=== PATIENT | female | born 1960 | race Hispanic/Latino ===

== ENCOUNTER 2019-05-22 23:53 | Emergency (ER) | payer BC ==
[2019-05-23] MEDS ORDERED: NA CHLORIDE 0.9% 1,000 ML ONE (00:25)
[2019-05-23] MEDS ORDERED: PROMETHAZINE 25 MG/ML VIAL ONE (00:50)
[2019-05-23 01:06] LABS: Absolute Lymphocytes (CBC) 0.4 K/uL (0.7-4.9); Basophils % 0.4 % (0-1.3); Hematocrit 39.7 % (36.0-45.0); Lymphocytes % 7.8 % (15.3-44.8); MPV 9.8 fL (7.6-11.3); RBC Red Blood Cell Count 4.39 M/uL (3.86-4.86)
[2019-05-23 01:14] LABS: Potassium 3.6 mmol/L (3.5-5.1)
--- NOTE | 2019-05-23 01:35 | EDPHYS ---
Physician Documentation [facility] Name: Zeny Fox Age: 59 yrs Sex: Female : 1960 Arrival Date: 05/22/2019 Time: 23:59 Bed 7 Private MD: ED Physician Roland Matthews HPI: 05/23 00:19 This 59 yrs old Female presents to ER via Ambulatory with complaints of Flu snw Symptoms. 00:19 Onset: The symptoms/episode began/occurred suddenly, yesterday. Associated signs and snw symptoms: Pertinent positives: congestion, cough, diarrhea, earache, fever, headache, sore throat, vomiting. Modifying factors: The patient symptoms are alleviated by nothing. The patient has not experienced similar symptoms in the past, but family has similar symptoms, Grandson. The patient has not recently seen a physician. Historical: - Allergies: 00:14 No Known Allergies; lp1 - Home Meds: 00:14 metformin 1,000 mg Oral tab 1 tab 2 times per day [Active]; Trulicity subcutaneous lp1 subcutaneous once wkly [Active]; irbesartan 75 mg oral tab 1 tab once daily [Active]; rosuvastatin 10 mg oral tab 1 tab once daily [Active]; - PMHx: 00:14 Diabetes - IDDM; Hypertension; Hyperlipidemia; colon cancer; lp1 - PSHx: 00:14 Colon resection; lp1 - Immunization history:: Adult Immunizations up to date, Flu vaccine is not up to date. - Social history:: Smoking status: Patient/guardian denies using tobacco. - Ebola Screening: : No symptoms or risks identified at this time. ROS: 00:18 Eyes: Negative for injury, pain, redness, and discharge. snw 00:18 Neck: Negative for injury, pain, and swelling, Cardiovascular: Negative for chest pain, palpitations, and edema. 00:18 Back: Negative for injury and pain, : Negative for injury, bleeding, discharge, and swelling, MS/Extremity: Negative for injury and deformity, Skin: Negative for injury, rash, and discoloration, Neuro: Negative for headache, weakness, numbness, tingling, and seizure. 00:18 Constitutional: Positive for body aches, chills, fatigue, fever, malaise, poor PO intake. 00:18 ENT: Positive for ear pain, nasal discharge, sinus congestion, sore throat. 00:18 Respiratory: Positive for cough. 00:18 Abdomen/GI: Positive for nausea, vomiting, and diarrhea. Exam: 00:18 Head/Face: Normocephalic, atraumatic. Eyes: Pupils equal round and reactive to light, snw extra-ocular motions intact. Lids and lashes normal. Conjunctiva and sclera are non-icteric and not injected. Cornea within normal limits. Periorbital areas with no swelling, redness, or edema. ENT: Nares patent. No nasal discharge, no septal abnormalities noted. Tympanic membranes are normal and external auditory canals are clear. Oropharynx with no redness, swelling, or masses, exudates, or evidence of obstruction, uvula midline. Mucous membranes moist. Neck: Trachea midline, no thyromegaly or masses palpated, and no cervical lymphadenopathy. Supple, full range of motion without nuchal rigidity, or vertebral point tenderness. No Meningismus. Chest/axilla: Normal chest wall appearance and motion. Nontender with no deformity. No lesions are appreciated. 00:18 Respiratory: Lungs have equal breath sounds bilaterally, clear to auscultation and percussion. No rales, rhonchi or wheezes noted. No increased work of breathing, no retractions or nasal flaring. Abdomen/GI: Soft, non-tender, with normal bowel sounds. No distension or tympany. No guarding or rebound. No evidence of tenderness throughout. Back: No spinal tenderness. No costovertebral tenderness. Full range of motion. Skin: Warm, dry with normal turgor. Normal color with no rashes, no lesions, and no evidence of cellulitis. MS/ Extremity: Pulses equal, no cyanosis. Neurovascular intact. Full, normal range of motion. Neuro: Awake and alert, GCS 15, oriented to person, place, time, and situation. Cranial nerves II-XII grossly intact. Motor strength 5/5 in all extremities. Sensory grossly intact. Cerebellar exam normal. Normal gait. Psych: Awake, alert, with orientation to person, place and time. Behavior, mood, and affect are within normal limits. 00:18 Constitutional: The patient appears alert, anxious, uncomfortable. 00:18 Cardiovascular: Rate: tachycardic, Rhythm: regular, Pulses: no pulse deficits are appreciated. Vital Signs: 00:12 BP 139 / 73; Pulse 109; Resp 18; Temp 100.2(O); Pulse Ox 96% on R/A; Weight 83.91 kg lp1 (R); Height 5 ft. 0 in. (152.40 cm); Pain 0/10; 01:48 BP 134 / 62; Pulse 109; Resp 18; Temp 101; Pulse Ox 97% ; ea 00:12 Body Mass Index 36.13 (83.91 kg, 152.40 cm) lp1 MDM: 00:12 Patient medically screened. chanelle 01:32 Data reviewed: vital signs, nurses notes. Data interpreted: Pulse oximetry: on room air snw is 96 %. Interpretation: acceptable. Counseling: I had a detailed discussion with the patient and/or guardian regarding: the historical points, exam findings, and any diagnostic results supporting the discharge/admit diagnosis, lab results, the need for outpatient follow up, to return to the emergency department if symptoms worsen or persist or if there are any questions or concerns that arise at home. Special discussion: Based on the history and exam findings, there is no indication for further emergent testing or inpatient evaluation. I discussed with the patient/guardian the need to see the primary care provider for further evaluation of the symptoms. 05/23 00:18 Order name: Influenza Screen (a \T\ B); Complete Time: 01:29 snw 05/23 00:18 Order name: CBC with Diff; Complete Time: 01:53 snw 05/23 00:18 Order name: Chem 7; Complete Time: 01:29 snw 05/23 01:49 Order name: Manual Differential; Complete Time: :53 EDMS Administered Medications: 00:33 Drug: NS 0.9% 1000 ml Route: IV; Rate: 1 bolus; Site: right antecubital; ea 01:47 Follow up: Response: No adverse reaction; IV Status: Completed infusion; IV Intake: ea 1000ml 00:52 Drug: Phenergan 12.5 mg Route: IVP; Site: right antecubital; jd3 01:47 Follow up: Response: No adverse reaction; Nausea is decreased ea 01:58 Drug: Tamiflu 75 mg Route: PO; ea 02:20 Follow up: Response: No adverse reaction ea 01:58 Drug: Motrin 600 mg Route: PO; ea 02:21 Follow up: Response: No adverse reaction ea Disposition: 05:40 Co-signature as Attending Physician, Roland Matthews MD I agree with the assessment and [facility] plan of care. Disposition: 05/23/19 01:31 Discharged to Home. Impression: Influenza due to identified novel influenza A virus, Dehydration. - Condition is Stable. - Discharge Instructions: Dehydration, Adult, Fever, Adult, Influenza, Adult, Rehydration, Adult. - Prescriptions for Tamiflu 75 mg Oral Capsule - take 1 capsule by ORAL route every 12 hours for 5 days; 10 capsule. promethazine 25 mg Oral Tablet - take 1 tablet by ORAL route every 6 hours As needed; 20 tablet. - Medication Reconciliation Form, Thank You Letter, Antibiotic Education, Prescription Opioid Use form. - Follow up: Private Physician; When: 2 - 3 days; Reason: Recheck today's complaints, Continuance of care, Re-evaluation by your physician. Follow up: Emergency Department; When: As needed; Reason: Worsening of condition. Signatures: Dispatcher [employer] EDRoland Colmenares MD MD cha Therrien, Shelly, SCRAP CHARGER-C SCRAP CHARGER-Csnw Vanita Fox, RN RN lp1 Cassi Fung RN RN Alexandr Garber RN RN jd3 Corrections: (The following items were deleted from the chart) 02:20 01:31 05/23/2019 01:31 Discharged to Home. Impression: Influenza due to identified ea novel influenza A virus; Dehydration. Condition is Stable. Forms are Medication Reconciliation Form, Thank You Letter, Antibiotic Education, Prescription Opioid Use. Follow up: Private Physician; When: 2 - 3 days; Reason: Recheck today's complaints, Continuance of care, Re-evaluation by your physician. Follow up: Emergency Department; When: As needed; Reason: Worsening of condition. snw
--- NOTE | 2019-05-23 01:35 | ER ---
Nurse's Notes [facility] Name: Zeny Fox Age: 59 yrs Sex: Female : 1960 Arrival Date: 05/22/2019 Time: 23:59 Bed 7 Private MD: Diagnosis: Influenza due to identified novel influenza A virus;Dehydration Presentation: 05/23 00:11 Presenting complaint: Patient states: Cough, low grade fever, nausea since yesterday. lp1 Transition of care: patient was not received from another setting of care. Onset of symptoms was May 21, 2019. Risk Assessment: Do you want to hurt yourself or someone else? Patient reports no desire to harm self or others. Initial Sepsis Screen: Does the patient meet any 2 criteria? No. Patient's initial sepsis screen is negative. Does the patient have a suspected source of infection? No. Patient's initial sepsis screen is negative. Care prior to arrival: None. 00:11 Method Of Arrival: Ambulatory lp1 00:11 Acuity: JAMES 4 lp1 Historical: - Allergies: 00:14 No Known Allergies; lp1 - Home Meds: 00:14 metformin 1,000 mg Oral tab 1 tab 2 times per day [Active]; Trulicity subcutaneous lp1 subcutaneous once wkly [Active]; irbesartan 75 mg oral tab 1 tab once daily [Active]; rosuvastatin 10 mg oral tab 1 tab once daily [Active]; - PMHx: 00:14 Diabetes - IDDM; Hypertension; Hyperlipidemia; colon cancer; lp1 - PSHx: 00:14 Colon resection; lp1 - Immunization history:: Adult Immunizations up to date, Flu vaccine is not up to date. - Social history:: Smoking status: Patient/guardian denies using tobacco. - Ebola Screening: : No symptoms or risks identified at this time. Screenin:14 Abuse screen: Denies threats or abuse. Denies injuries from another. Nutritional lp1 screening: No deficits noted. Tuberculosis screening: No symptoms or risk factors identified. Fall Risk None identified. Assessment: 00:34 General: Appears uncomfortable, Behavior is appropriate for age. Pain: Complains of ea pain in body aches. Neuro: Level of Consciousness is awake, alert, obeys commands, Oriented to person, place, time, situation. Respiratory: Airway is patent Respiratory effort is even, unlabored, Respiratory pattern is regular, symmetrical. GI: Reports diarrhea, nausea, vomiting. Derm: Skin is dry, Skin is pale, Skin temperature is warm. 01:50 Reassessment: Patient and/or family updated on plan of care and expected duration. Pain ea level reassessed. Patient is alert, oriented x 3, equal unlabored respirations, skin warm/dry/pink. Discharge instruction given to patient, verbalized the understanding of instruction. Pt left ED ambulatory accompanied by family. Vital Signs: 00:12 BP 139 / 73; Pulse 109; Resp 18; Temp 100.2(O); Pulse Ox 96% on R/A; Weight 83.91 kg lp1 (R); Height 5 ft. 0 in. (152.40 cm); Pain 0/10; 01:48 BP 134 / 62; Pulse 109; Resp 18; Temp 101; Pulse Ox 97% ; ea 00:12 Body Mass Index 36.13 (83.91 kg, 152.40 cm) lp1 ED Course: 05/22 23:59 Patient arrived in ED. cl3 05/23 00:07 Susan Thomas F[facility]-C [facility] snw 00:07 Roland Matthews MD is Attending Physician. snw 00:12 Triage completed. lp1 00:12 Arm band placed on. lp1 00:33 Patient has correct armband on for positive identification. Bed in low position. Call ea light in reach. Side rails up X2. 00:33 Inserted saline lock: 20 gauge in right antecubital area, using aseptic technique. ea Blood collected. 01:14 Cassi Fung, RN is Primary Nurse. ea 02:18 No provider procedures requiring assistance completed. IV discontinued, intact, ea bleeding controlled, No redness/swelling at site. Pressure dressing applied. Administered Medications: 00:33 Drug: NS 0.9% 1000 ml Route: IV; Rate: 1 bolus; Site: right antecubital; ea 01:47 Follow up: Response: No adverse reaction; IV Status: Completed infusion; IV Intake: ea 1000ml 00:52 Drug: Phenergan 12.5 mg Route: IVP; Site: right antecubital; jd3 01:47 Follow up: Response: No adverse reaction; Nausea is decreased ea 01:58 Drug: Tamiflu 75 mg Route: PO; ea 02:20 Follow up: Response: No adverse reaction ea 01:58 Drug: Motrin 600 mg Route: PO; ea 02:21 Follow up: Response: No adverse reaction ea Intake: 01:47 IV: 1000ml; Total: 1000ml. ea Outcome: 01:31 Discharge ordered by . snw 02:18 Discharged to home ambulatory, with significant other. ea 02:18 Condition: stable 02:18 Discharge instructions given to patient, Instructed on discharge instructions, follow up and referral plans. medication usage, Demonstrated understanding of instructions, follow-up care, medications, Prescriptions given X 2. 02:20 Patient left the ED. ea Signatures: Susan Thomas, SEAM CHECKER-C SEAM CHECKER-Csnw Vanita Fox RN RN lp1 Cassi Fung RN RN ea Davies, Jonathon, RN RN jd3 Jose Miguel Neville cl3
[2019-05-23 01:48] LABS: Platelet Estimate DECR
[2019-05-23 01:49] LABS: Blood Morphology Comment NOT SEEN (NOT SEEN)
[2019-05-23] MEDS ORDERED: IBUPROFEN 200 MG TAB PO ONE (01:55)
[2019-05-23] MEDS ORDERED: OSELTAMIVIR 75 MG CAP ONE (01:55)
[2019-05-23] MEDS ORDERED: IBUPROFEN 400 MG TAB ONE (01:55)
[2019-05-23 02:28] VITALS: BP 134/62; TEMP 101; O2SAT 97
== END 2019-05-23 02:20 | disposition home or self-care (01) ==
LOC: ER 23:53
DX: J10.1 Influenza due to other identified influenza virus with other respiratory manifestations (principal); E86.0 Dehydration; I10 Essential (primary) hypertension; E11.9 Type 2 diabetes mellitus without complications; E78.5 Hyperlipidemia, unspecified; Z79.4 Long term (current) use of insulin; Z85.89 Personal history of malignant neoplasm of other organs and systems
CPT/HCPCS: 96361; 85025; 80048; 36415; 87804 ×2; 96374; 99284; J2550; J7030

== ENCOUNTER 2019-07-14 10:26 | Inpatient (IN) | payer BC ==
[2019-07-14] MEDS ORDERED: PANTOPRAZOLE 40 MG INJ ONE (10:58)
[2019-07-14] MEDS ORDERED: ONDANSETRON 4 MG/2 ML VIAL ONE (10:58)
[2019-07-14] MEDS ORDERED: NA CHLORIDE 0.9% 1,000 ML ONE ×2 (10:59→11:40)
[2019-07-14] MEDS ORDERED: PANTOPRAZOLE INJ 80 MG in NA CHLORIDE 0.9% 250 ML IV ONE (11:00)
[2019-07-14 11:02] LABS: Absolute Lymphocytes (CBC) 2.1 K/uL (0.7-4.9); Basophils % 0.8 % (0-1.3); Hematocrit 33.9 % (36.0-45.0); Lymphocytes % 21.9 % (15.3-44.8); MPV 9.7 fL (7.6-11.3); RBC Red Blood Cell Count 3.64 M/uL (3.86-4.86)
[2019-07-14 11:07] LABS: Protime INR 1.27
[2019-07-14 11:25] LABS: ALT/SGPT 55 U/L (12-78); AST/SGOT 51 U/L (15-37); Albumin 2.9 g/dL (3.4-5.0); Alkaline Phosphatase 146 U/L (45-117); BUN Blood Urea Nitrogen 26 mg/dL (7-18); Bicarbonate 19 mmol/L (21-32); Bilirubin Direct 0.4 mg/dL (0-0.2); Bilirubin Total 1.2 mg/dL (0.2-1.0); Glucose Level 249 mg/dL (74-106); Lipase 229 U/L (73-393); Magnesium 1.8 mg/dL (1.8-2.4); NT PRO-BNP 31 pg/mL (<125); Potassium 3.9 mmol/L (3.5-5.1); Protein, Total 6.2 g/dL (6.4-8.2); Sodium Level 140 mmol/L (136-145); Troponin (Emerg Dept Use Only) < 0.02 ng/mL (0.0-0.045)
--- NOTE | 2019-07-14 11:34 | RAD REPORT ---
EXAM DESCRIPTION: Bre Single View07/14/2019 11:02 am CLINICAL HISTORY: Abd pain COMPARISON: none FINDINGS: The lungs appear clear of acute infiltrate. The heart is normal size IMPRESSION: No acute abnormalities displayed
--- NOTE | 2019-07-14 11:55 | RAD REPORT ---
EXAM DESCRIPTION: US - Abdomen Exam Limited - 07/14/2019 11:46 am CLINICAL HISTORY: NAUSEA / VOMITING COMPARISON: Abdomen Exam Complete dated 07/27/2016 FINDINGS: The gallbladder demonstrates multiple shadowing gallstones. No pericholecystic fluid or ga llbladder wall thickening. The common bile duct is normal measuring 4 mm. The liver demonstrates no findings of intrahepatic biliary dilatation. IMPRESSION: Cholelithiasis.
--- NOTE | 2019-07-14 12:05 | RAD REPORT ---
EXAM DESCRIPTION: CTAbdomen Pelvis W Contrast - 07/14/2019 11:54 am CLINICAL HISTORY: Abdominal pain. ABD PAIN COMPARISON: Abdomen Pelvis W Contrast dated 01/10/2017 TECHNIQUE: Biphasic CT imaging of the abdomen and pelvis was performed with 100 ml non-ionic IV cont rast. All CT scans are performed using dose optimization technique as appropriate and may include automated exposure control or mA/KV adjustment according to patient size. FINDINGS: The lung bases are clear.Small esophageal varices. Diffuse liver cirrhosis is present. No focal mass or biliary dilatation. Cholelithiasis. The spleen, pancreas, adrenal glands and kidneys are within normal limits. No bowel obstruction, free air, free fluid or abscess. Postsurgical changes about the sigmoid. Sigmoi d diverticulosis. The appendix is normal. No evidence of significant lymphadenopathy. No suspicious bony findings. IMPRESSION: Prominent liver cirrhosis. Cholelithiasis.
--- NOTE | 2019-07-14 12:29 | ER ---
Nurse's Notes [facility] Name: Zeny Fox Age: 59 yrs Sex: Female : 1960 Arrival Date: 07/14/2019 Time: 10:27 Bed 2 Private MD: Chet Herrera B Diagnosis: Hematemesis;Cholelithiasis;Unspecified cirrhosis of liver Presentation: 07/14 10:40 Acuity: JAMES 2 sv 10:40 Presenting complaint: Patient states: abd pain with n/v started last night, denies sv diarrhea. Reports "dark vomit 5 times". 10:40 Method Of Arrival: Wheelchair sv 10:40 Transition of care: patient was not received from another setting of care. Onset of sv symptoms was July 13, 2019. Risk Assessment: Do you want to hurt yourself or someone else? Patient reports no desire to harm self or others. Initial Sepsis Screen: Does the patient meet any 2 criteria? HR > 90 bpm. No. Patient's initial sepsis screen is negative. Does the patient have a suspected source of infection? Yes: Acute abdominal pain. Care prior to arrival: None. Triage Assessment: 10:40 General: Appears in no apparent distress. uncomfortable, well developed, Behavior is sv calm, cooperative, appropriate for age. Pain: Complains of pain in abdomen Pain currently is 5 out of 10 on a pain scale. Pain began 1 day ago. Is intermittent. Neuro: Level of Consciousness is awake, alert, obeys commands, Oriented to person, place, time, situation, Moves all extremities. Full function Gait is steady, Speech is normal. Cardiovascular: Patient's skin is warm and dry. Rhythm is sinus rhythm. Respiratory: Airway is patent Respiratory effort is even, unlabored, Respiratory pattern is regular, symmetrical. GI: Abdomen is round distended, Abd is soft X 4 quads Abdomen is tender to palpation X 4 quads. Reports lower abdominal pain, upper abdominal pain, nausea, vomiting, vomiting dark contents. Derm: Skin is pink, warm \\T\\ dry. Musculoskeletal: Range of motion: intact in all extremities. Historical: - Allergies: 11:03 No Known Allergies; sv - PMHx: 11:03 colon cancer; Diabetes - IDDM; Hyperlipidemia; Hypertension; fatty liver; sv - PSHx: 11:03 Colon resection; sv - Immunization history:: Flu vaccine is not up to date. - Coronavirus screen:: The patient has NOT traveled to [place] in the past 14 days. Proceed with normal triage process as indicated. The patient has NOT had contact with known/suspected case of Coronavirus? Proceed with normal triage procedures. - Social history:: Smoking status: Patient denies any tobacco usage or history of. - Ebola Screening: : No symptoms or risks identified at this time. Screenin:40 Abuse screen: Denies threats or abuse. Denies injuries from another. Nutritional sv screening: No deficits noted. Tuberculosis screening: No symptoms or risk factors identified. Fall Risk None identified. Assessment: 11:15 Reassessment: Patient appears in no apparent distress at this time. No changes from sv previously documented assessment. Patient and/or family updated on plan of care and expected duration. Pain level reassessed. Patient is alert, oriented x 3, equal unlabored respirations, skin warm/dry/pink. See triage assessment. 12:20 Reassessment: Patient appears in no apparent distress at this time. No changes from sv previously documented assessment. Patient and/or family updated on plan of care and expected duration. Pain level reassessed. Patient is alert, oriented x 3, equal unlabored respirations, skin warm/dry/pink. 12:40 Reassessment: Dr Almanza at the bedside. sv 13:33 Reassessment: Patient appears in no apparent distress at this time. No changes from sv previously documented assessment. Patient and/or family updated on plan of care and expected duration. Pain level reassessed. Patient is alert, oriented x 3, equal unlabored respirations, skin warm/dry/pink. Vital Signs: 10:40 BP 124 / 75; Pulse 114; Resp 20; Temp 98; Pulse Ox 99% ; Weight 85.73 kg; Height 5 ft. sv 0 in. (152.40 cm); Pain 5/10; 11:38 BP 92 / 75; Pulse 110; Resp 14; Pulse Ox 100% ; sv 12:30 BP 114 / 66; Pulse 113; Resp 18; Pulse Ox 100% ; sv 13:00 BP 110 / 54; Pulse 98 MON; Resp 17; Pulse Ox 100% on R/A; sv 10:40 Body Mass Index 36.91 (85.73 kg, 152.40 cm) sv 13:00 Sinus Rhythm sv ED Course: 10:27 Patient arrived in ED. mr 10:30 Roland Corral PA [facility]. cp 10:30 Roland Matthews MD is Attending Physician. cp 10:33 Arm band placed on Patient placed in an exam room, on a stretcher. sv 10:40 Anel Cherry, ELIZA is Primary Nurse. sv 10:40 Triage completed. sv 10:40 Patient has correct armband on for positive identification. Placed in gown. Bed in low sv position. Call light in reach. Adult w/ patient. limited radiology technician on. Pulse ox on. NIBP on. Door closed. Head of bed elevated. 10:45 Inserted saline lock: 18 gauge in right antecubital area, using aseptic technique. sv Blood collected. Flushed right antecubital with 2 ml normal saline. 10:47 Inserted saline lock: 20 gauge in right forearm, using aseptic technique. Flushed right sv forearm with 2 ml normal saline. 10:58 Lipase Sent. sv 10:58 Ptt, Activated Sent. sv 10:58 Basic Metabolic Panel Sent. sv 10:58 CBC with Diff Sent. sv 10:58 LFT's Sent. sv 10:58 Magnesium Sent. sv 10:58 NT PRO-BNP Sent. sv 10:58 PT-INR Sent. sv 10:58 Troponin (emerg Dept Use Only) Sent. sv 11:04 EKG done, by ED staff, reviewed by Roland GAN. mh5 11:05 Patient has correct armband on for positive identification. Placed in gown. Bed in low mh5 position. Call light in reach. Side rails up X 1. Adult w/ patient. Warm blanket given. limited radiology technician on. Pulse ox on. NIBP on. 11:33 Type And Screen Sent. sv 11:41 US Abdomen Limited: RUQ/epigastric area Sent. sv 11:50 CT Abd/Pelvis - IV Contrast Only Sent. sv 12:25 Chet Herrera MD is Private Physician. cp 12:27 Anil Almanza DO is Hospitalizing Provider. cp 12:59 Awaiting bed assignment. sv 13:18 XRAY Chest (1 view) Sent. sv 13:34 No provider procedures requiring assistance completed. Patient admitted, IV remains in sv place. intact. Administered Medications: 11:15 Drug: Zofran 4 mg Route: IVP; Site: right forearm; sv 11:50 Follow up: Response: No adverse reaction sv 11:17 Drug: ProTONIX 40 mg Route: IVP; Site: right forearm; sv 11:50 Follow up: Response: No adverse reaction sv 11:19 Drug: ProTONIX 8 mg/hr Route: IV; Rate: 25 ml/hr; Site: right forearm; sv 13:33 Follow up: Response: No adverse reaction; IV Status: Infusion continued upon admission sv 11:19 Drug: NS 0.9% 1000 ml Route: IV; Rate: 1 bolus; Site: right forearm; sv 12:00 Follow up: Response: No adverse reaction; IV Status: Completed infusion; IV Intake: sv 1000ml 12:00 Drug: NS 0.9% 1000 ml Route: IV; Rate: 1 bolus; Site: right forearm; sv 13:00 Follow up: Response: No adverse reaction; IV Status: Completed infusion; IV Intake: sv 1000ml Intake: 12:00 IV: 1000ml; Total: 1000ml. sv 13:00 IV: 1000ml; Total: 2000ml. sv Outcome: 12:28 Decision to Hospitalize by Provider. marija 13:33 Admitted to ICU accompanied by nurse, via stretcher, room 3, with chart, Report called sv to Elizabeth KAY 13:33 Condition: stable 13:33 Instructed on the need for admit. 14:00 Patient left the ED. sv Signatures: Anel Cherry RN RN CastroAlyson Corey, PA PA cp Martinez, Maria 5 Corrections: (The following items were deleted from the chart) 11:02 10:40 Presenting complaint: Patient states: abd pain with n/v started last night, sv denies diarrhea. Reports "dark vomit 5 times" sv 12:40 10:40 BP 124 / 75; Pulse 114bpm; Resp 20bpm; Pulse Ox 99%; 85.73 kg; Height 5 ft. 0 sv in.; BMI: 36.9; Pain 5/10; sv
--- NOTE | 2019-07-14 12:30 | EDPHYS ---
Physician Documentation [facility] Name: Zeny Fox Age: 59 yrs Sex: Female : 1960 Arrival Date: 07/14/2019 Time: 10:27 Bed 2 Private MD: Chet Herrera B ED Physician Roland Matthews HPI: 07/14 10:45 This 59 yrs old Female presents to ER via Unassigned with complaints of cp Vomiting, Abdominal Pain. 10:45 The patient presents to the emergency department with nausea, vomiting, that is cp intermittent, described as dark colored with blood, abdominal pain, of the left upper quadrant and left lower quadrant. Onset: The symptoms/episode began/occurred yesterday. Possible causes: bad food exposure, chicken. Historical: - Allergies: 11:03 No Known Allergies; sv - PMHx: 11:03 colon cancer; Diabetes - IDDM; Hyperlipidemia; Hypertension; fatty liver; sv - PSHx: 11:03 Colon resection; sv - Immunization history:: Flu vaccine is not up to date. - Coronavirus screen:: The patient has NOT traveled to [place] in the past 14 days. Proceed with normal triage process as indicated. The patient has NOT had contact with known/suspected case of Coronavirus? Proceed with normal triage procedures. - Social history:: Smoking status: Patient denies any tobacco usage or history of. - Ebola Screening: : No symptoms or risks identified at this time. ROS: 10:49 Eyes: Negative for injury, pain, redness, and discharge. cp 10:49 Constitutional: Negative for body aches, chills, fever. 10:49 ENT: Negative for drainage from ear(s), ear pain, difficulty swallowing, difficulty handling secretions. 10:49 Cardiovascular: Negative for chest pain, palpitations. 10:49 Respiratory: Negative for cough, shortness of breath, wheezing. 10:49 Abdomen/GI: Positive for abdominal pain, nausea, vomiting, hematemesis, Negative for diarrhea, constipation, black/tarry stool, rectal bleeding. 10:49 Back: Negative for radiated pain. 10:49 : Negative for urinary symptoms. 10:49 Neuro: Negative for altered mental status, headache, syncope. 10:49 All other systems are negative. Exam: 10:55 Constitutional: The patient appears in no acute distress, alert, awake, cp non-diaphoretic, non-toxic, well developed, well nourished. 10:55 Head/Face: Normocephalic, atraumatic. cp 10:55 Eyes: Periorbital structures: appear normal, Conjunctiva: normal, no exudate, no injection, Sclera: no appreciated abnormality, Lids and lashes: appear normal, bilaterally. 10:55 ENT: External ear(s): are unremarkable, Nose: is normal, Mouth: Lips: moist, Oral mucosa: moist, Posterior pharynx: is normal, airway is patent, no erythema, no exudate. 10:55 Neck: ROM/movement: is normal, is supple, without pain, no range of motions limitations, no nuchal rigidity. 10:55 Chest/axilla: Inspection: normal, Palpation: is normal, no crepitus, no tenderness. 10:55 Cardiovascular: Rate: tachycardic, Rhythm: regular, Edema: is not appreciated, JVD: is not appreciated. 10:55 Respiratory: the patient does not display signs of respiratory distress, Respirations: normal, no use of accessory muscles, no retractions, labored breathing, is not present, Breath sounds: are clear throughout, no decreased breath sounds, no stridor, no wheezing. 10:55 Abdomen/GI: Inspection: abdomen appears normal, Bowel sounds: active, all quadrants, Palpation: soft, in all quadrants, mild abdominal tenderness, in the left upper quadrant and left lower quadrant, rebound tenderness, is not appreciated, voluntary guarding, is not appreciated, involuntary guarding, is not appreciated. 10:55 Back: pain, is absent, ROM is normal. 10:55 Neuro: Orientation: to person, place \T\ time. Mentation: is normal, Motor: moves all fours, strength is normal. 11:14 ECG was reviewed by the Attending Physician. cp Vital Signs: 10:40 BP 124 / 75; Pulse 114; Resp 20; Temp 98; Pulse Ox 99% ; Weight 85.73 kg; Height 5 ft. sv 0 in. (152.40 cm); Pain 5/10; 11:38 BP 92 / 75; Pulse 110; Resp 14; Pulse Ox 100% ; sv 12:30 BP 114 / 66; Pulse 113; Resp 18; Pulse Ox 100% ; sv 13:00 BP 110 / 54; Pulse 98 MON; Resp 17; Pulse Ox 100% on R/A; sv 10:40 Body Mass Index 36.91 (85.73 kg, 152.40 cm) sv 13:00 Sinus Rhythm sv MDM: 10:33 Patient medically screened. cp 12:25 Physician consultation: Anil Almanza DO was called at 12:25, was contacted at 12:25, cp regarding admission, to the medical/surgical unit. patient's condition. 12:25 Data reviewed: vital signs, nurses notes, lab test result(s), EKG, radiologic studies, cp CT scan, plain films, I have discussed the patient's presentation/case with the attending Emergency Department Physician; and as a result, I will admit patient. 12:25 Test interpretation: by ED physician or midlevel provider: ECG, plain radiologic cp studies, chest xray negative for infiltrates. Response to treatment: the patient's symptoms have markedly improved after treatment. 07/14 10:41 Order name: Basic Metabolic Panel cp 07/14 10:41 Order name: CBC with Diff cp 07/14 10:41 Order name: LFT's cp 07/14 10:41 Order name: Magnesium cp 07/14 10:41 Order name: NT PRO-BNP cp 07/14 10:41 Order name: PT-INR cp 07/14 10:41 Order name: Troponin (emerg Dept Use Only) cp 07/14 10:41 Order name: Ptt, Activated cp 07/14 10:41 Order name: Lipase cp 07/14 11:06 Order name: CBC with Automated Diff; Complete Time: 11:26 EDMS 07/14 11:26 Interpretation: Normal except: RBC 3.64; HGB 11.4; HCT 33.9. cp 07/14 11:12 Order name: Protime (+INR); Complete Time: 11:26 EDMS 07/14 11:12 Order name: PTT, Activated Partial Thromb; Complete Time: 11:26 EDMS 07/14 11:26 Order name: Basic Metabolic Panel; Complete Time: 11:27 EDMS 07/14 11:27 Interpretation: Normal except: CL 109; CO2 19; GLUC 249; BUN 26; GFR 75. cp 07/14 11:26 Order name: Liver (Hepatic) Function; Complete Time: 11:27 EDMS 07/14 11:27 Interpretation: Normal except: AST 51; ALK 146; BILIT 1.2; BILID 0.4; TP 6.2; ALB 2.9; cp A/G 0.9. 07/14 10:41 Order name: XRAY Chest (1 view) cp 07/14 11:26 Order name: Troponin (Emerg Dept Use Only); Complete Time: 11:27 EDMS 07/14 11:26 Order name: NT PRO-BNP; Complete Time: 11:27 EDMS 07/14 11:26 Order name: Magnesium; Complete Time: 11:27 EDMS 07/14 11:26 Order name: Lipase; Complete Time: 11:27 EDMS 07/14 11:27 Order name: Type And Screen cp 07/14 11:27 Order name: CT Abd/Pelvis - IV Contrast Only cp 07/14 11:29 Order name: US Abdomen Limited: RUQ/epigastric area cp 07/14 12:13 Order name: RAD; Complete Time: 12:19 EDMS 07/14 12:14 Order name: US; Complete Time: 12:19 EDMS 07/14 12:37 Order name: CT EDND 07/14 10:41 Order name: EKG; Complete Time: 10:42 cp 07/14 10:41 Order name: Cardiac monitoring; Complete Time: 10:51 cp 07/14 10:41 Order name: EKG - Nurse/Tech; Complete Time: 10:58 cp 07/14 10:41 Order name: IV Saline Lock; Complete Time: 10:52 cp 07/14 10:41 Order name: Labs collected and sent; Complete Time: 10:52 cp 07/14 10:41 Order name: O2 Per Protocol; Complete Time: 10:52 cp 07/14 10:41 Order name: O2 Sat Monitoring; Complete Time: 10:52 cp EC:14 Rate is 121 beats/min. Rhythm is regular. GA interval is normal. QRS interval is cp normal. QT interval is normal. Interpreted by me. Reviewed by me. Administered Medications: 11:15 Drug: Zofran 4 mg Route: IVP; Site: right forearm; sv 11:50 Follow up: Response: No adverse reaction sv 11:17 Drug: ProTONIX 40 mg Route: IVP; Site: right forearm; sv 11:50 Follow up: Response: No adverse reaction sv 11:19 Drug: ProTONIX 8 mg/hr Route: IV; Rate: 25 ml/hr; Site: right forearm; sv 13:33 Follow up: Response: No adverse reaction; IV Status: Infusion continued upon admission sv 11:19 Drug: NS 0.9% 1000 ml Route: IV; Rate: 1 bolus; Site: right forearm; sv 12:00 Follow up: Response: No adverse reaction; IV Status: Completed infusion; IV Intake: sv 1000ml 12:00 Drug: NS 0.9% 1000 ml Route: IV; Rate: 1 bolus; Site: right forearm; sv 13:00 Follow up: Response: No adverse reaction; IV Status: Completed infusion; IV Intake: sv 1000ml Disposition: 07/14/19 12:28 Hospitalization ordered by Anil Almanza for Inpatient Admission. Preliminary diagnosis are Hematemesis, Cholelithiasis, Unspecified cirrhosis of liver. - Bed requested for Intensive Care Unit. - Status is Inpatient Admission. sv - Condition is Stable. - Problem is new. - Symptoms have improved. Addendum: 07/16/2019 08:35 Co-signature as Attending Physician, Roland Matthews MD I agree with the assessment and c plata plan of care. Signatures: Dispatcher [employer] EDMS Sydney Henriquez Stephanie, RN RN sv Anderson, Corey, MD MD cha Page, Corey, PA PA cp Corrections: (The following items were deleted from the chart) 07/14 12:54 12:28 Hospitalization Ordered by Anil Almanza DO for Inpatient Admission. Preliminary cp diagnosis is Hematemesis; Cholelithiasis; Unspecified cirrhosis of liver. Bed requested for Telemetry/MedSurg (Inpatient). Status is Inpatient Admission. Condition is Stable. Problem is new. Symptoms have improved. cp 13:13 12:54 07/14/2019 12:28 Hospitalization Ordered by Anil Almanza DO for Inpatient bd Admission. Preliminary diagnosis is Hematemesis; Cholelithiasis; Unspecified cirrhosis of liver. Bed requested for Intensive Care Unit. Status is Inpatient Admission. Condition is Stable. Problem is new. Symptoms have improved. cp 14:00 13:13 07/14/2019 12:28 Hospitalization Ordered by Anil Almanza DO for Inpatient sv Admission. Preliminary diagnosis is Hematemesis; Cholelithiasis; Unspecified cirrhosis of liver. Bed requested for Intensive Care Unit. Status is Inpatient Admission. Condition is Stable. Problem is new. Symptoms have improved. bd
[2019-07-14] MEDS ORDERED: NA CHLORIDE 0.9% 1,000 ML IV SCH (13:30)
[2019-07-14] MEDS ORDERED: ACETAMINOPHEN 500 MG TAB PO PRN (13:30)
[2019-07-14] MEDS ORDERED: ACETAMINOPHEN 650MG/RECT SUPP PR PRN (13:30)
--- NOTE | 2019-07-14 14:17 | P.HP ---
Certification for Inpatient Patient admitted to: Inpatient With expected LOS: >2 Midnights Patient will require the following post-hospital care: None Practitioner: I am a practitioner with admitting privileges, knowledge of patient current condition, hospital course, and medical plan of care. Services: Services provided to patient in accordance with Admission requirements found in Title 42 Section 412.3 of the Code of Federal Regulations Patient History Date of Service: 07/14/19 Primary Care Provider: Dr. Herrera; GI-Dr. Noble Reason for admission: Hematemesis, melena History of Present Illness: 59-year-old female with history of hypertension, diabetes mellitus type 2 non-insulin dependent, fatty liver cirrhosis, history of colon cancer with resection. Patient reports that she ate [employer] chicken last night. She reported feeling sick thereafter. She had an upset stomach. She did not sleep well. Then this morning she had increasing nausea and vomiting at around 9:00 a.m.. She started to vomit. She reported some bloody discharge with her vomitus. She then noted some melena thereafter. Patient denies any fever, chills, shortness of breath. No significant chest pain noted. Patient came to the ER for further evaluation. In the ER patient was evaluated. Patient was initially hypotensive. Patient required 2 L fluid bolus. White count 9.7, hemoglobin 11.4. Platelet count 187. Sodium 140, potassium 3.9, BUN of 26, creatinine 0.7 with a GFR 78. Glucose 249. Total bilirubin 1.2, AST 51, ALT 55. Lipase unremarkable. Troponin unremarkable. Chest x-ray unremarkable. CT scan shows prominent liver cirrhosis. Abdominal ultrasound showed some cholelithiasis. Patient was started on IV Protonix. Patient was admitted for further evaluation and treatment. When I saw the patient ER, she did appear stable. Blood pressure improved to around 114 systolic. Patient was still slightly tachycardic at 105. at bedside. Patient reports history of liver cirrhosis related to fatty liver. she also is a history of diabetes and hypertension. She does have a history of colon cancer. She has a resection done in 2017. She has not followed up with GI for follow up colonoscopy. Patient admits to alcohol use in the past. She does not drink anymore but on occasion. Allergies No Known Allergies Allergy (Unverified 07/14/19 13:16) Home medications list reviewed: Yes - Past Medical/Surgical History Diabetic: Yes -: Diabetes mellitus type 2 [id number]-ohxtzybac -: Hypertension -: GERD -: Obesity -: Liver cirrhosis with fatty liver -: History of colon cancer status post resection -: Colon resection Psychosocial/ Personal History: Patient is - Family History Father -: Heart disease Sister -: Heart disease, Cancer (Lymphoma) - Social History Smoking Status: Light Tobacco smoker (1-9 cigarettes/day) Counseled patient to stop smoking for: less than 10 minutes Smoking therapy provided: Yes Patient receptive to therapy: Yes Alcohol use: Yes CD- Drugs: No Caffeine use: Yes Place of Residence: Home Review of Systems General: As per HPI Eyes: Unremarkable ENT: Unremarkable Respiratory: Unremarkable Cardiovascular: Unremarkable Gastrointestinal: Nausea, Vomiting, Melena, As per HPI Genitourinary: Unremarkable Musculoskeletal: Unremarkable Integumentary: Unremarkable Neurological: Unremarkable Lymphatics: Unremarkable Physical Examination - Physical Exam General: Alert, In no apparent distress, Oriented x3, Cooperative HEENT: Atraumatic, Normocephalic, Other (Dry mucous membranes) Neck: Supple Respiratory: Clear to auscultation bilaterally, Normal air movement Cardiovascular: Abnormal pulses (Mild tachycardia) Gastrointestinal: Normal bowel sounds, Soft and benign, Non-distended, No ascites, No tenderness, No masses, No rebound, No guarding Musculoskeletal: No erythema, No tenderness, No warmth Integumentary: No tenderness/swelling, No erythema, No warmth Neurological: Normal speech, Normal strength at 5/5 x4 extr, Normal tone, Normal affect - Studies Laboratory Data (last 24 hrs) 07/14/19 10:45: PT 14.8 H, INR 1.27, APTT 34.4 07/14/19 10:45: WBC 9.7, Hgb 11.4 L, Hct 33.9 L, Plt Count 187 07/14/19 10:45: Sodium 140, Potassium 3.9, BUN 26 H, Creatinine 0.79, Glucose 249 H, Magnesium 1.8, Total Bilirubin 1.2 H, AST 51 H, ALT 55, Alkaline Phosphatase 146 H, Lipase 229 Assessment and Plan - Plan Impression: Hematemesis/melena with nausea and vomiting secondary to acute upper GI bleed likely related to gastritis/esophagitis Acute anemia likely secondary to upper GI bleed Diabetes mellitus type 2 [id number]-xfmoubtqm with hyperglycemia History of hypertension with noted hypotension related to above Liver cirrhosis with fatty liver History of distant alcohol abuse Tobacco abuse History of colon cancer status post resection Plan: Hematemesis/melena with nausea and vomiting secondary to acute upper GI bleed likely related to gastritis/esophagitis: Patient will be admitted to ICU for further treatment. Patient will continue with IV Protonix drip. Will continue with IV fluids. Will also start IV Rocephin. Will monitor and maintain hemoglobin above 8.0. Patient may require transfusion of blood if hemoglobin continues to drop. Case discussed with GI who has seen her in the past. Will stabilize patient. GI plans for EGD tomorrow morning. Will continue monitor lab closely including hemoglobin and hematocrit. Will keep the patient NPO at this time. Incidental cholelithiasis noted. No evidence of cholecystitis. Will provide SCD for DVT prophylaxis. I will turn the service over to the hospitalist team tomorrow. I will go over the plan of care with him. Acute anemia likely secondary to upper GI bleed: Will monitor hemoglobin closely. Continue with above recommendation. Patient may require transfusion if hemoglobin drops significantly or below 8.0. Diabetes mellitus type 2 poq-rywhfrz-eovaagkde with hyperglycemia: Will monitor Accu-Cheks every 6 hr. Will provide sliding scale. History of hypertension with noted hypotension related to above: Will hold her blood pressure medications at this time. Patient may need to restart medications if blood pressure elevates. Liver cirrhosis with fatty liver: Patient reports liver cirrhosis related to fatty liver. She has not followed up with GI. Have GI make recommendations. History of distant alcohol abuse: Patient reports distant alcohol use. Will check alcohol level. Tobacco abuse: Tobacco cessation addressed in detail. Will continue with education. History of colon cancer status post resection: Patient had surgery about 2 years ago. She has not followed up with GI for follow up colonoscopy. This can be addressed as an outpatient. Discharge Plan: Home Plan to discharge in: 72 Hours - Advance Directives Does patient have a Living Will: No Does patient have a Durable POA for Healthcare: No - Code Status/Comfort Care Code Status Assessed: Yes (Patient is full code) Time Spent Managing Pts Care (In Minutes): 55
[2019-07-14 14:28] LABS: Hematocrit 32.4 % (36.0-45.0)
--- NOTE | 2019-07-14 15:27 | EKG ---
Test Date: 2019-07-14 Test Time: 11:00:51 Color Artist: SOREN MEASUREMENT RESULTS: Intervals: Rate: 121 WV: 128 QRSD: 78 QT: 350 QTc: 497 [place]: P: 70 WV: 128 QRS: 74 T: 38 INTERPRETIVE STATEMENTS: Sinus tachycardia Otherwise normal ECG No previous ECG available for comparison Electronically Signed On 07-14-19 15:27:05 OFFICE CORRESPONDENT by Petros Abbott
[2019-07-14] MEDS: INSULIN -REGULAR HUMAN 50 UNIT/0.5 ML ML SQ SCH ×2 (16:30→21:00)
[2019-07-14] MEDS: Ringers Lactate 1,000 ML IV SCH (18:58)
[2019-07-14 20:02] LABS: Urine Appearance CLEAR; Urine Bilirubin NEGATIVE (NEG); Urine Blood NEGATIVE (NEG); Urine Color YELLOW; Urine Glucose NEGATIVE (NEG); Urine Protein NEGATIVE (NEG); Urine Specific Gravity >=1.030 (1.005-1.030); Urine Urobilinogen 0.2 mg/dL (0.2-1.0)
[2019-07-14 20:09] LABS: Urine Microscopic Reflex NO UMIC
[2019-07-14] MEDS: PANTOPRAZOLE INJ 80 MG in NA CHLORIDE 0.9% 250 ML IV SCH (20:38)
[2019-07-14] MEDS: CEFTRIAXONE/SWI 1gm 1 GM/10 ML SYR IV SCH (20:39)
[2019-07-14] MEDS ORDERED: NA CHLORIDE 0.9% 250 ML IV SCH (21:00)
[2019-07-15 05:17] LABS: Absolute Lymphocytes (CBC) 1.9 K/uL (0.7-4.9); Basophils % 0.6 % (0-1.3); Hematocrit 31.3 % (36.0-45.0); Lymphocytes % 36.9 % (15.3-44.8); MPV 9.4 fL (7.6-11.3); RBC Red Blood Cell Count 3.43 M/uL (3.86-4.86)
[2019-07-15 05:26] LABS: Protime INR 1.24
[2019-07-15 05:30] LABS: ALT/SGPT 41 U/L (12-78); AST/SGOT 40 U/L (15-37); Albumin 2.5 g/dL (3.4-5.0); Alkaline Phosphatase 97 U/L (45-117); BUN Blood Urea Nitrogen 13 mg/dL (7-18); Bicarbonate 24 mmol/L (21-32); Bilirubin Total 0.8 mg/dL (0.2-1.0); Glucose Level 128 mg/dL (74-106); Magnesium 1.8 mg/dL (1.8-2.4); Potassium 3.4 mmol/L (3.5-5.1); Protein, Total 5.1 g/dL (6.4-8.2); Sodium Level 145 mmol/L (136-145)
[2019-07-15] MEDS: Ringers Lactate 1,000 ML IV SCH ×2 (05:35→16:48)
[2019-07-15 07:03] LABS: Anisocytosis 1+; Blood Morphology Comment NOTED (NOT SEEN); Platelet Estimate DECR; White Blood Cell Scan OK
[2019-07-15] MEDS: INSULIN -REGULAR HUMAN 50 UNIT/0.5 ML ML SQ SCH ×4 (07:17→21:00)
[2019-07-15] MEDS: PANTOPRAZOLE INJ 80 MG in NA CHLORIDE 0.9% 250 ML IV SCH ×2 (07:17→18:26)
[2019-07-15] MEDS ORDERED: NS 0.9% VIAL 10 ML ONE (09:29)
[2019-07-15] MEDS ORDERED: LIDOCAINE 1% MPF 5 ML VIAL ONE ×2 (09:29→11:12)
[2019-07-15] MEDS ORDERED: Phenylephrine HCl 10 MG/ML 1 ML VIAL ONE (09:29)
[2019-07-15] MEDS ORDERED: EPHEDRINE SULF 50 MG/ML VIAL ONE (09:29)
[2019-07-15] MEDS ORDERED: ETOMIDATE 20 MG/10 ML VIAL IV ONE (09:30)
[2019-07-15] MEDS: KCL 20 MEQ/100 mL IVPB 20 MEQ/100 ML BAG IV SCH ×2 (09:33→16:50)
[2019-07-15] MEDS: CEFTRIAXONE/SWI 1gm 1 GM/10 ML SYR IV SCH ×3 (09:33→19:37)
[2019-07-15] MEDS ORDERED: NA CHLORIDE 0.9% 1,000 ML ONE (10:37)
[2019-07-15] MEDS ORDERED: propofoL 200 MG/20 ML VIAL IV ONE (11:12)
--- NOTE | 2019-07-15 11:12 | P.PN ---
Subjective Date of Service: 07/15/19 Primary Care Provider: Dr. Herrera; GI-Dr. Noble Chief Complaint: Hematemesis, melena Subjective: No new changes Patient seen and examined chart reviewed and case discussed with RN. Patient has not had any further bleeding. Hemoglobin seems to remain stable. Cooperate EGD this morning. Treatment plan explained all questions answered. Review of Systems 10-point ROS is otherwise unremarkable Gastrointestinal: As per HPI Physical Examination - Vital Signs Temperature: 97.5 F Blood Pressure: 101/65 Pulse: 79 Respirations: 17 Pulse Ox (%): 97 - Physical Exam General: Alert, Oriented x3, Mild distress, Obese, Other (Ill-appearing female) HEENT: Atraumatic, PERRLA, EOMI Neck: Supple, JVD not distended Respiratory: Clear to auscultation bilaterally, Normal air movement Cardiovascular: No edema, Normal pulses, Regular rate/rhythm, Normal S1 S2 Gastrointestinal: Normal bowel sounds, Soft and benign, Non-distended, Tenderness Musculoskeletal: No clubbing, No tenderness Integumentary: No rashes, No erythema Neurological: Normal speech, Normal tone, Cranial nerves 3-12 intact, Normal affect - Studies Laboratory Data (last 24 hrs) 07/14/19 10:45: PT 14.8 H, INR 1.27, APTT 34.4 07/14/19 10:45: Sodium 140, Potassium 3.9, BUN 26 H, Creatinine 0.79, Glucose 249 H, Magnesium 1.8, Total Bilirubin 1.2 H, AST 51 H, ALT 55, Alkaline Phosphatase 146 H, Lipase 229 Imagings Data: EXAM DESCRIPTION: US - Abdomen Exam Limited - 07/14/2019 11:46 am CLINICAL HISTORY: NAUSEA / VOMITING COMPARISON: Abdomen Exam Complete dated 07/27/2016 FINDINGS: The gallbladder demonstrates multiple shadowing gallstones. No pericholecystic fluid or gallbladder wall thickening. The common bile duct is normal measuring 4 mm. The liver demonstrates no findings of intrahepatic biliary dilatation. IMPRESSION: Cholelithiasis. Medications List Reviewed: Yes Assessment And Plan - Plan Hematemesis/melena with nausea and vomiting secondary to acute upper GI bleed likely related to gastritis/esophagitis: Patient will continue with IV Protonix drip. Will continue with IV fluids. Will also start IV Rocephin. Will monitor and maintain hemoglobin above 8.0. Patient required 1 unit transfusion of blood. EGD this morning. Will continue monitor lab closely including hemoglobin and hematocrit. Will keep the patient NPO at this time. Incidental cholelithiasis noted. No evidence of cholecystitis. Acute anemia likely secondary to upper GI bleed: Will monitor hemoglobin closely. Continue with above recommendation. Patient may require transfusion if hemoglobin drops significantly or below 8.0. Diabetes mellitus type 2 wga-aiswizr-oxeawsfij with hyperglycemia: Will monitor Accu-Cheks every 6 hr. Will provide sliding scale. History of hypertension with noted hypotension related to above: Will hold her blood pressure medications at this time. Patient may need to restart medications if blood pressure elevates. Liver cirrhosis with fatty liver: Patient reports liver cirrhosis related to fatty liver. She has not followed up with GI. Have GI make recommendations. History of distant alcohol abuse: Patient reports distant alcohol use. Will check alcohol level. Nicotine dependence with cigarette smoking: Tobacco cessation addressed in detail. Will continue with education. History of colon cancer status post resection: Patient had surgery about 2 years ago. She has not followed up with GI for follow up colonoscopy. This can be addressed as an outpatient. Will provide SCD for DVT prophylaxis. Continue monitor the ICU setting Likely Dc in the next 24-48 hr Discharge Plan: Home Plan to discharge in: 48 Hours - Code Status/Comfort Care Code Status Assessed: Yes
--- NOTE | 2019-07-15 11:51 | ENDO RPT ---
[address], [address] EGD PROCEDURE REPORT EXAM DATE: 07/15/2019 PATIENT NAME: Zeny Fox MR#: [id number] BIRTHDATE: 1960 ATTENDING: Baldo Noble Dr STATUS: inpatient - 7 RAILCAR BRAKE OPERATOR: Yady Doran CST, Soraida NGO, and Tammie Cisneros RN INDICATIONS: The patient is a 59 yr old Female here for an EGD due to hematemesis, melenic bleeding, and anemia PROCEDURE PERFORMED: EGD with biopsy and EGD with banding MEDICATIONS: Per Anesthesia. TOPICAL ANESTHETIC: none CONSENT: The patient understands the risks and benefits of the procedure and understands that these risks include, but are not limited to: sedation, allergic reaction, infection, perforation and/or bleeding. Alternative means of evaluation and treatment include, among others: physical exam, x-rays, and/or surgical intervention. The patient elects to proceed with this endoscopic procedure. DESCRIPTION OF PROCEDURE: During intra-op preparation period all mechanical medical equipment was checked for proper function. Hand hygiene and appropriate measures for infection prevention was taken. Procedure, possible complications, and alternatives including but not limited to the possibility of bleeding, perforation, tear, infection, sepsis, need for surgery, need for blood transfusion, and anesthesia related complications were explained to the patient. After the risks, benefits and alternatives of the procedure were thoroughly explained, Informed consent was verified, confirmed and timeout was successfully executed by the treatment team. The patient was placed in the left lateral position. The patient was anesthetized with topical anesthesia. Through the anesthetized oropharyngeal area, the scope was passed without any difficulty. The EG-[id number] ([id number]) and Pentax [id number] ([id number]) endoscope was introduced through the mouth and advanced to the second portion of the duodenum. Retroflexed views revealed no abnormalities. The gastroscope was then slowly withdrawn and removed. 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 3 columns of grade III varices with red whale spots, s/p banding X4. Portal hypertensive gastropathy was found in the body of the stomach. Mild gastritis was found in the antrum. Multiple biopsies were obtained and sent to pathology. ADVERSE EVENTS: There were no complications. IMPRESSIONS: 1. 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 Portal hypertensive gastropathy in the body of the stomach 3. Mild gastritis in the antrum, s/p biopsies RECOMMENDATIONS: 1. await biopsy results 2. acid suppression therapy 3. IV Octreotide 4. IV Ceftriaxone REPEAT EXAM: Return in 2 week(s) for EGD with banding. Baldo Noble Dr eSigned: Baldo Noble Dr 07/15/2019 11:50 AM cc: Anil Almanza CPT CODES: ICD9 CODES: PATIENT NAME: Zeny Fox MR#: [id number]
[2019-07-15] MEDS: FENTANYL CITR 100 MCG/2 ML ONE ×2 (12:18→12:30)
[2019-07-15] MEDS: OCTREOTIDE 500 MCG in NA CHLORIDE 0.9% 500 ML IV SCH ×2 (12:56→22:24)
[2019-07-15 13:54] LABS: Ferritin 200.9 ng/mL (8-388)
[2019-07-15] MEDS: ONDANSETRON 4 MG/2 ML VIAL IV PRN (14:12)
[2019-07-15] MEDS ORDERED: PROMETHAZINE INJ 25 MG/ML AMP IV PRN (16:37)
[2019-07-15] MEDS: MORPHINE 2 MG/ML SYR IV ONE ×2 (16:48→17:00)
--- NOTE | 2019-07-15 17:00 | CON ---
Date of Consultation: 07/15/2019 Reason For Consultation: Melena, coffee-grounds emesis over the past 2 days. History Of Present Illness: Patient is a 59-year-old female with history of diabetes, hyper tension, fatty liver disease, induced cirrhosis of the liver and colon cancer status post resection. Patient reports she was eating some Popeyes chicken the night before admission 2 days ago, started f eeling sick thereafter. Stomach was upset, did not sleep well and then in the morning, she had incre asing nausea, vomiting at 9 a.m., started to vomit and some bloody discharge. She said it was a dark black coffee-grounds emesis 5 times and she also started having black stools 1-2 times. She came to the hospital for further evaluation and care. Found to have a hemoglobin of 11.4, platelet count of 187. CT scan showed prominent liver cirrhosis with small esophageal varices and diffuse liver cirrh osis. Patient's last colonoscopy was after her resection in 2017 for her colon cancer and she is due for repeat colonoscopy. She admits to alcohol use in the past. Does not drink anymore. Past Medical History: Significant for diabetes; hypertension; gastroesophageal reflux disease; obesi ty; cirrhosis of the liver, presumably thought due to fatty liver disease; colon cancer status post r esection, needs repeat colonoscopy. Allergies: NKDA. Medications: See list. Social History: Father is alive with heart disease, coronary disease status post CABG and history of myocardial infarction. Mother of stroke and myocardial infarction. Sister had a stroke. Anot her sister had a lymphoma. Social History: , 3 children. No tobacco. No alcohol. Even though chart review says that s he is a light smoker, 1-1/2 cigarettes per day. The patient told me she did not smoke. Review of Systems: Patient had black stools, melena and coffee-grounds emesis with nausea, vomiting. She has some pain in the right and left lower quadrant area. This is mild, 3/10, she reports. She denies any hemoptys is, hematuria, dysuria, polyuria, polydipsia, chest pain, shortness of breath, seizure, syncope, lowe r extremity edema, muscle aches, joint aches, backaches, depression, anxiety. Physical Examination: Vital Signs: She is 5 foot, 182 pounds. BMI of 36 kg/m2. Temperature of 97.5, pulse 79, respiratio ns 17, blood pressure 101/65, O2 saturation 97%. HEENT: Normocephalic, atraumatic. Anicteric. Pupils equal, round, and reactive to light. Extraocu lar movements are intact. Oropharynx is clear. Neck: Supple. No masses. Respirations: Clear to auscultation bilaterally. Cardiac: Regular rate and rhythm. Gastrointestinal: Positive bowel sounds. Soft, nontender, nondistended. No hepatosplenomegaly. Ob balbir. Extremities: No clubbing, cyanosis, or edema. 2+ pulses. Neuro: Alert and oriented x3. Grossly nonfocal. 5/5 motor. Sensation intact to light touch. Data: Patient has a white count of 5.0; hemoglobin of 10.5, after 2 units transfusion she was down t o 8.8, admission of 11.4; hematocrit now 31.3; MCV of 91; platelet count of 81, down from 187 on admi ssion; polys of 54%; lymphocytes 37%; monocytes 7%; eosinophils 1%; basophils 1%. PT of 14.5, INR of 1.24, PTT of 34.5. Patient has a sodium of 145, potassium 3.4, chloride 114, bicarb 24, BUN 13, cre atinine 0.6, glucose 128, calcium 7.9, magnesium 1.8, total bili 0.8. AST of 40, ALT 41, alk phos of 97. Troponin I of 0.02. Total protein of 5.1, albumin of 2.5, globulin 2.6. Lipase on admission w as 229, which is normal. UA was negative. Serum alcohol was less than 10, negative. CT abdomen and pelvis revealed small esophageal varices and diffuse liver cirrhosis and cholelithiasis. No ascites is noted. Ultrasound of abdomen does reveal cholelithiasis. No ascites noted. Impression: 1.Melena x2 days with coffee-grounds emesis x5 on first day Sunday only. She denies any aspirin, ib uprofen, NSAID. No blood thinners. She does have a history of cirrhosis of the liver, presumably fr om fatty liver disease. Has followed up closely for outpatient followup. She also notes some right and left lower quadrant pain and mild 3/10 with the passage of the black stools. 2.End-stage liver disease, cirrhosis of the liver, probable with CT revealing small esophageal varic es and diffuse liver cirrhosis. Start workup and see what workup has been done as an outpatient. 3.Thrombocytopenia. Platelets down to 81,000 from 187 on admission, indicative of bleeding and loss of platelets, we will need to proceed with EGD. 4.Protein-calorie malnutrition. Albumin 2.5, also indicative of end-stage liver disease, cirrhosis and poor hepatic function. Although, her PT/INR is normal at 14.5 and INR of 1.24 with a PTT of 34.5 . 5.Anemia. Hemoglobin 11.4, down to 8.8 indicative of her bleeding, need to investigate with EGD. 6.History of colon cancer, hypertension, diabetes, end-stage liver disease, cirrhosis secondary to p resumed fatty liver disease. Recommendation: 1.Proceed with EGD. 2.Serial H and H and transfuse p.r.n. If varices are indeed found, the goal hemoglobin should be 78 . 3.PPI therapy. 4.N.p.o. 5.End-stage liver disease workup. 6.If liver disease, cirrhosis and varices indeed found, we will need to start IV octreotide and ceft riaxone in this patient. MICHELLE/PATRICK Voice ID: [id number] Report ID: [id number]
[2019-07-15 17:19] LABS: Hematocrit 33.7 % (36.0-45.0)
[2019-07-15] MEDS: MORPHINE 2 MG/ML SYR IV PRN (19:35)
[2019-07-15 22:44] LABS: Hematocrit 31.3 % (36.0-45.0)
[2019-07-16] MEDS: MORPHINE 2 MG/ML SYR IV PRN ×2 (00:11→07:35)
[2019-07-16] MEDS: Ringers Lactate 1,000 ML IV SCH ×4 (02:32→23:16)
[2019-07-16] MEDS: PANTOPRAZOLE INJ 80 MG in NA CHLORIDE 0.9% 250 ML IV SCH ×3 (05:32→23:17)
[2019-07-16 05:41] VITALS: BMI 36.5
[2019-07-16 06:01] LABS: Absolute Lymphocytes (CBC) 1.3 K/uL (0.7-4.9); Basophils % 0.5 % (0-1.3); Hematocrit 30.8 % (36.0-45.0); Lymphocytes % 31.7 % (15.3-44.8); MPV 9.8 fL (7.6-11.3); RBC Red Blood Cell Count 3.36 M/uL (3.86-4.86)
[2019-07-16 06:38] LABS: ALT/SGPT 61 U/L (12-78); AST/SGOT 88 U/L (15-37); Albumin 2.7 g/dL (3.4-5.0); Alkaline Phosphatase 99 U/L (45-117); BUN Blood Urea Nitrogen 8 mg/dL (7-18); Bicarbonate 27 mmol/L (21-32); Bilirubin Total 0.9 mg/dL (0.2-1.0); Glucose Level 126 mg/dL (74-106); Magnesium 1.9 mg/dL (1.8-2.4); Protein, Total 5.7 g/dL (6.4-8.2); Sodium Level 142 mmol/L (136-145)
[2019-07-16] MEDS: INSULIN -REGULAR HUMAN 50 UNIT/0.5 ML ML SQ SCH ×4 (07:30→21:00)
[2019-07-16] MEDS: ROSUVASTATIN 10 MG TAB PO SCH (08:31)
[2019-07-16] MEDS: ONDANSETRON 4 MG/2 ML VIAL IV PRN ×2 (08:31→18:12)
[2019-07-16] MEDS: CEFTRIAXONE/SWI 1gm 1 GM/10 ML SYR IV SCH ×2 (08:31→23:18)
[2019-07-16] MEDS: OCTREOTIDE 500 MCG in NA CHLORIDE 0.9% 500 ML IV SCH ×2 (08:32→21:35)
[2019-07-16] MEDS ORDERED: HYDROCODONE/APAP 7.5/325 MG TAB PO PRN (08:34)
--- NOTE | 2019-07-16 10:21 | EKG ---
Test Date: 2019-07-15 Test Time: 19:21:22 Filling Technician: CAMILLE MEASUREMENT RESULTS: Intervals: Rate: 88 DE: 130 QRSD: 82 QT: 392 QTc: 474 [place]: P: 42 DE: 130 QRS: 44 T: 5 INTERPRETIVE STATEMENTS: Normal sinus rhythm Low voltage QRS Borderline ECG Compared to ECG 07/14/2019 11:00:51 Low QRS voltage now present Sinus tachycardia no longer present Electronically Signed On 07-16-19 10:21:23 SAMPLER PICKUP by Petros Abbott
--- NOTE | 2019-07-16 11:05 | P.PN ---
Subjective Date of Service: 07/16/19 Primary Care Provider: Dr. Herrera; GI-Dr. Noble Chief Complaint: Hematemesis, melena Subjective: Tolerating diet Patient seen and examined chart reviewed and case discussed with RN. Patient has not had any further bleeding. Hemoglobin seems to remain stable. EGD done yesterday showed esophageal varices which were banded. Treatment plan explained all questions answered. Complained of some chest pain yesterday evening EKG was normal. Morphine alleviated the pain. Had a small emesis after pain medication Review of Systems 10-point ROS is otherwise unremarkable Cardiovascular: As per HPI Gastrointestinal: As per HPI Physical Examination - Vital Signs Temperature: 97 F Blood Pressure: 129/70 Pulse: 65 Respirations: 15 Pulse Ox (%): 95 - Physical Exam General: Alert, Oriented x3, Mild distress, Obese, Other (Ill-appearing female. Appears older than stated age) HEENT: Atraumatic, PERRLA, EOMI Neck: Supple Respiratory: Clear to auscultation bilaterally, Normal air movement Cardiovascular: No edema, Normal pulses, Regular rate/rhythm, Normal S1 S2 Gastrointestinal: Normal bowel sounds, Soft and benign, Non-distended, Tenderness Musculoskeletal: No tenderness Integumentary: No rashes, No erythema Neurological: Normal speech, Normal tone, Normal affect - Studies Laboratory Tests 07/14/19 07/14/19 07/14/19 10:45 10:45 10:45 WBC 9.7 RBC 3.64 L Hgb 11.4 L Hct 33.9 L MCV 93.3 MCH 31.3 MCHC 33.5 RDW 15.2 Plt Count 187 MPV 9.7 Neutrophils % 72.6 Lymphocytes % 21.9 Monocytes % 4.5 Eosinophils % 0.2 Basophils % 0.8 Absolute Neutrophils 7.1 Absolute Lymphocytes 2.1 Absolute Monocytes 0.4 Absolute Eosinophils 0.0 Absolute Basophils 0.1 PT 14.8 H INR 1.27 APTT 34.4 Sodium 140 Potassium 3.9 Chloride 109 H Carbon Dioxide 19 L BUN 26 H Creatinine 0.79 Estimated GFR 75 L Glucose 249 H Calcium 8.7 Magnesium 1.8 Total Bilirubin 1.2 H Direct Bilirubin 0.4 H AST 51 H ALT 55 Alkaline Phosphatase 146 H Rapid Troponin I < 0.02 NT-Pro-B Natriuret Pep 31 Serum Total Protein 6.2 L Albumin 2.9 L Globulin 3.3 Albumin/Globulin Ratio 0.9 L Lipase 229 ABO/Rh Solid Phase Ab Screen Crossmatch 07/14/19 11:30 WBC RBC Hgb Hct MCV MCH MCHC RDW Plt Count MPV Neutrophils % Lymphocytes % Monocytes % Eosinophils % Basophils % Absolute Neutrophils Absolute Lymphocytes Absolute Monocytes Absolute Eosinophils Absolute Basophils PT INR APTT Sodium Potassium Chloride Carbon Dioxide BUN Creatinine Estimated GFR Glucose Calcium Magnesium Total Bilirubin Direct Bilirubin AST ALT Alkaline Phosphatase Rapid Troponin I NT-Pro-B Natriuret Pep Serum Total Protein Albumin Globulin Albumin/Globulin Ratio Lipase ABO/Rh O POSITIVE Solid Phase Ab Screen Negative Crossmatch See Detail Medications List Reviewed: Yes Assessment And Plan - Plan Hematemesis/melena with nausea and vomiting secondary to acute upper GI bleed likely related to gastritis/esophagitis: Patient will continue with IV Protonix drip. Will continue with IV fluids. Continue IV Rocephin. Will monitor and maintain hemoglobin above 8.0. Patient required 2 unit transfusion of blood. EGD showed esophageal varices that were banded. Will continue monitor lab closely including hemoglobin and hematocrit. Advance diet to full liquids. Appreciate GI input. Patient did have some chest pain likely due to her symptoms EKG was normal not suspecting any cardiac-related issues. Dc morphine as patient is getting nauseated switched to [place] p.o.. Acute anemia likely secondary to upper GI bleed: Will monitor hemoglobin closely. Continue with above recommendation. Patient may require transfusion if hemoglobin drops significantly or below 8.0. Diabetes mellitus type 2 [id number] with hyperglycemia: Will monitor Accu-Cheks every 6 hr. Will provide sliding scale. History of hypertension with noted hypotension related to above: Will hold her blood pressure medications at this time. Patient may need to restart medications if blood pressure elevates. Liver cirrhosis with fatty liver: Patient reports liver cirrhosis related to fatty liver. She has not followed up with GI. Have GI make recommendations. Alpha 1 antitrypsin pending History of distant alcohol abuse: Patient reports distant alcohol use. Alcohol level negative Nicotine dependence with cigarette smoking: Tobacco cessation addressed in detail. Will continue with education. History of colon cancer status post resection: Patient had surgery about 2 years ago. She has not followed up with GI for follow up colonoscopy. This can be addressed as an outpatient. Will provide SCD for DVT prophylaxis. step-down from ICU. Likely Dc in the next 24-48 hr depending on clinical improvement and if able to tolerate diet.
--- NOTE | 2019-07-16 11:26 | P.PN ---
Subjective Date of Service: 07/16/19 Primary Care Provider: Dr. Herrera; GI-Dr. Noble Chief Complaint: Hematemesis, melena Subjective: Improving (Feels well, tolerating clear liquid diet well. No melena , hematemesis, N/V in 36 hours. Has had some mild atypical chest pain since esophageal varices banding X4 yesterday.) Review of Systems 10-point ROS is otherwise unremarkable General: Weakness (Improved.), Malaise (Improved.) Cardiovascular: Chest Pain (atypical from esophageal banding yesterday, improving) Physical Examination - Vital Signs Temperature: 97 F Blood Pressure: 129/70 Pulse: 65 Respirations: 15 Pulse Ox (%): 95 - Physical Exam General: Alert, In no apparent distress, Oriented x3, Cooperative HEENT: Atraumatic, Normocephalic, PERRLA, EOMI Neck: Supple Respiratory: Normal air movement Cardiovascular: Normal pulses Gastrointestinal: Soft and benign, No tenderness, No masses, No rebound, No guarding Neurological: Normal speech, Normal strength at 5/5 x4 extr - Studies Medications List Reviewed: Yes Assessment And Plan - Current Problems (Diagnosis) (1) Hematemesis Current Visit: Yes Status: Acute (2) Melena Current Visit: Yes Status: Acute (3) Anemia Current Visit: Yes Status: Acute (4) Cirrhosis Current Visit: Yes Status: Acute (5) Fatty liver Current Visit: Yes Status: Acute (6) Abnormal CT of the abdomen Current Visit: Yes Status: Acute (7) Esophageal varices with hemorrhage Current Visit: Yes Status: Acute (8) History of colon cancer Current Visit: Yes Status: Acute - Plan REC: 1) CL to [place] diet and then to GI soft 2) repeat EGD with banding in 2-3 weeks 3) GI clinic follow-up 4) wean off IV Octreotide tomorrow with discharge 5) outpatient colonoscopy (colon cancer resection in 2017; she missed colonoscopy in 2019) in 2-3 months after serial esophageal bandings completed
[2019-07-17 05:54] LABS: Absolute Lymphocytes (CBC) 1.1 K/uL (0.7-4.9); Basophils % 0.6 % (0-1.3); Hematocrit 29.3 % (36.0-45.0); Lymphocytes % 32.5 % (15.3-44.8); RBC Red Blood Cell Count 3.18 M/uL (3.86-4.86)
[2019-07-17 06:13] LABS: ALT/SGPT 80 U/L (12-78); AST/SGOT 107 U/L (15-37); Albumin 2.5 g/dL (3.4-5.0); Alkaline Phosphatase 88 U/L (45-117); BUN Blood Urea Nitrogen 9 mg/dL (7-18); Bicarbonate 28 mmol/L (21-32); Bilirubin Total 0.8 mg/dL (0.2-1.0); Glucose Level 126 mg/dL (74-106); Potassium 3.5 mmol/L (3.5-5.1); Protein, Total 5.3 g/dL (6.4-8.2); Sodium Level 144 mmol/L (136-145)
[2019-07-17] MEDS: INSULIN -REGULAR HUMAN 50 UNIT/0.5 ML ML SQ SCH ×2 (07:30→11:28)
[2019-07-17] MEDS: OCTREOTIDE 500 MCG in NA CHLORIDE 0.9% 500 ML IV SCH (07:34)
[2019-07-17] MEDS ORDERED: POTASSIUM CL SA 10 MEQ TAB PO ONE (09:00)
[2019-07-17] MEDS: ROSUVASTATIN 10 MG TAB PO SCH (09:38)
[2019-07-17] MEDS: CEFTRIAXONE/SWI 1gm 1 GM/10 ML SYR IV SCH (09:39)
[2019-07-17] MEDS: Ringers Lactate 1,000 ML IV SCH (10:10)
[2019-07-17] MEDS: PANTOPRAZOLE INJ 80 MG in NA CHLORIDE 0.9% 250 ML IV SCH (10:14)
[2019-07-17 10:39] VITALS: O2SAT 95
--- NOTE | 2019-07-17 13:51 | P.DS ---
Admission Date: 07/14/19 Discharge Date: 07/17/19 Primary Care Provider: Dr. Herrera; GI-Dr. Noble Disposition: ROUTINE DISCHARGE Discharge Condition: FAIR Reason for Admission: Hematemesis, melena Consultations: GI Dr. Noble Procedures: EGD w esophageal variceal banding Brief History of Present Illness: From H&P 59-year-old female with history of hypertension, diabetes mellitus type 2 non-insulin dependent, fatty liver cirrhosis, history of colon cancer with resection. Patient reports that she ate Popeyes chicken last night. She reported feeling sick thereafter. She had an upset stomach. She did not sleep well. Then this morning she had increasing nausea and vomiting at around 9:00 a.m.. She started to vomit. She reported some bloody discharge with her vomitus. She then noted some melena thereafter. Patient denies any fever, chills, shortness of breath. No significant chest pain noted. Patient came to the ER for further evaluation. In the ER patient was evaluated. Patient was initially hypotensive. Patient required 2 L fluid bolus. White count 9.7, hemoglobin 11.4. Platelet count 187. Sodium 140, potassium 3.9, BUN of 26, creatinine 0.7 with a GFR 78. Glucose 249. Total bilirubin 1.2, AST 51, ALT 55. Lipase unremarkable. Troponin unremarkable. Chest x-ray unremarkable. CT scan shows prominent liver cirrhosis. Abdominal ultrasound showed some cholelithiasis. Patient was started on IV Protonix. Patient was admitted for further evaluation and treatment. When I saw the patient ER, she did appear stable. Blood pressure improved to around 114 systolic. Patient was still slightly tachycardic at 105. at bedside. Patient reports history of liver cirrhosis related to fatty liver. she also is a history of diabetes and hypertension. She does have a history of colon cancer. She has a resection done in 2017. She has not followed up with GI for follow up colonoscopy. Patient admits to alcohol use in the past. She does not drink anymore but on occasion. Hospital Course: Patient is a 59 yo F w PMHx of hypertension, diabetes mellitus type 2 non- insulin dependent, fatty liver cirrhosis, history of colon cancer with resection who comes in hematemesis, N/V, abdominal pain. Patient was admitted to the ICU and GI was consulted. Patient scan shows prominent liver cirrhosis. Abdominal ultrasound showed some cholelithiasis. She was kept NPO started on protonix and octreotide drip. Patient had a drop in her HH and was transfused [address] Noble took the patient for EGD and she was found to have esophageal varices that were banded. Patient did not have any further hematemesis. She was able to tolerate her diet. Her potassium was replaced. She was on Abx. She was counseled regarding her liver cirrhosis. She needs to stop her social drinking and needs to f/up w GI for repeat EGD and banding. She will also need a colonoscopy for survery of her previously treated colon cancer. She was also counseled regarding her gallstones. She needs to avoid fried fatty foods and eventually have a surgical eval for cholecystectomy. Patient was then DC home after being cleared by GI in a stable condition. Hematemesis/melena with nausea and vomiting secondary to acute upper GI bleed likely related to esophageal varices Acute anemia likely secondary to upper GI bleed Diabetes mellitus type 2 [id number] with hyperglycemia History of hypertension with noted hypotension related to above. blood pressure stable. Liver cirrhosis with fatty liver History of distant alcohol abuse Nicotine dependence with cigarette smoking History of colon cancer status post resection Leukopenia Vital Signs/Physical Exam: Temp Pulse Resp BP Pulse Ox 96.8 F 79 18 135/65 95 07/17/19 08:00 07/17/19 08:00 07/17/19 08:00 07/17/19 08:00 07/17/19 08:00 General: Alert, In no apparent distress, Oriented x3, Obese HEENT: Atraumatic, PERRLA, EOMI Neck: Supple Respiratory: Clear to auscultation bilaterally, Normal air movement Cardiovascular: No edema, Normal pulses, Regular rate/rhythm, Normal S1 S2 Gastrointestinal: Normal bowel sounds, Soft and benign, Non-distended, No tenderness Musculoskeletal: No tenderness Integumentary: No rashes, No erythema Neurological: Normal speech, Normal strength at 5/5 x4 extr, Normal tone, Normal affect Laboratory Data at Discharge: WBC 3.3 K/uL (4.3-10.9) L D 07/17/19 05:25 Hgb 9.8 g/dL (12.0-15.0) L 07/17/19 05:25 Hct 29.3 % (36.0-45.0) L 07/17/19 05:25 Plt Count 79 K/uL (152-406) L 07/17/19 05:25 PT 14.5 SECONDS (9.5-12.5) H 07/15/19 05:00 INR 1.24 07/15/19 05:00 APTT 34.5 SECONDS (24.3-36.9) 07/15/19 05:00 Sodium 144 mmol/L (136-145) 07/17/19 05:25 Potassium 3.5 mmol/L (3.5-5.1) 07/17/19 05:25 BUN 9 mg/dL (7-18) 07/17/19 05:25 Creatinine 0.65 mg/dL (0.55-1.3) 07/17/19 05:25 Glucose 126 mg/dL (74-106) H 07/17/19 05:25 Magnesium 1.9 mg/dL (1.8-2.4) 07/16/19 04:49 Total Bilirubin 0.8 mg/dL (0.2-1.0) 07/17/19 05:25 AST 107 U/L (15-37) H 07/17/19 05:25 ALT 80 U/L (12-78) H 07/17/19 05:25 Alkaline Phosphatase 88 U/L (45-117) 07/17/19 05:25 Lipase 229 U/L (73-393) 07/14/19 10:45 Home Medications: Dulaglutide [Trulicity] 1.5 mg SQ EVERY 7TH DAY 07/14/19 Irbesartan 75 mg PO DAILY 07/14/19 Metformin HCl 1,000 mg PO BIDWM 07/14/19 Rosuvastatin [Crestor*] 10 mg PO DAILY 07/14/19 Pantoprazole Sodium [Protonix] 40 mg PO BID #60 tablet. 07/17/19 New Medications: Pantoprazole Sodium [Protonix] 40 mg PO BID #60 tablet. Patient Discharge Instructions: f/up w PCP in 2-3 days. f/up w GI Dr. Noble in 2 weeks. Return to ER for worsening condition Diet: Low sodium (1500ml fluid restriction) Activity: Ad dane Followup: Baldo Noble MD [ASSOCIATE-ACTIVE - CAN ADMIT] - (Please call to make an appointment. ) Time spent managing pt's care (in minutes): 39
[2019-07-17 16:48] LABS: HIV AG/AB 4TH GEN Non-reactive (Non-reactive)
[2019-07-17 18:20] VITALS: BP 132/80; TEMP 97.7
[2019-07-17 19:54] LABS: HBsAG Nonreactive (Nonreactive)
[2019-07-18 03:40] LABS: Immunoglobulin G 1000 mg/dL (600-1640)
== END 2019-07-17 16:07 | disposition home or self-care (01) | DRG 369 ==
LOC: ER 10:26 → ERHOLD 12:59 → 3RD-ICU 13:37 → 2ND 07-16 10:27
PROVIDERS: ADMIT Family Medicine; ATTEND Family Medicine
PROC: 06L38CZ Occlusion of Esophageal Vein with Extraluminal Device, Via Natural or Artificial Opening Endoscopic (ICD-10-PCS; 2019-07-15)
PROC: 0DB68ZX Excision of Stomach, Via Natural or Artificial Opening Endoscopic, Diagnostic (ICD-10-PCS; 2019-07-15)
PROC: 30233N1 Transfusion of Nonautologous Red Blood Cells into Peripheral Vein, Percutaneous Approach (ICD-10-PCS; principal; 2019-07-15 11:00)
DX: I85.01 Esophageal varices with bleeding (principal); D62 Acute posthemorrhagic anemia; E46 Unspecified protein-calorie malnutrition; K76.6 Portal hypertension; K74.60 Unspecified cirrhosis of liver; I10 Essential (primary) hypertension; E11.65 Type 2 diabetes mellitus with hyperglycemia; D72.819 Decreased white blood cell count, unspecified; Z68.35 Body mass index [BMI] 35.0-35.9, adult; K29.70 Gastritis, unspecified, without bleeding; K31.89 Other diseases of stomach and duodenum; Z85.038 Personal history of other malignant neoplasm of large intestine; F17.210 Nicotine dependence, cigarettes, uncomplicated; F10.21 Alcohol dependence, in remission
CPT/HCPCS: 36415; 36430; 71045; 74177; 76705; 80048; 80053; 80074; 80076; 80320; 81003; 82103; 82390; 82728; 82784; 82947; 83540; 83690; 83735; 83880; 84466; 84484; 85014; 85018; 85025; 85610; 85730; 86021; 86225; 86255; 86706; 86708; 86850; 86900; 86901; 87389; 88305; 88312; 93005; 96365; 96366; 96375; 99285; C9113; J0696; J2270; J2354; J2370; J2405; J2704; J3010; J7030; J7040; J7120; P9016; Q9967

== ENCOUNTER 2020-05-24 09:08 | Emergency (ER) | payer BC ==
--- OUTSIDE RECORDS SUMMARY | 2020-05-24 09:59 | XMS REPORT | Clinical Summary ---
:1960 Author Organization [facility] Address [address] [place] [id number] Care Team Providers Name Role Phone Chet Herrera MD Primary Care Provider Allergies No Known Active Allergies Medications Medication Sig Dispensed Refills Start Date End Date Status metFORMIN (GLUCOPHAGE) Take 1,000 mg by 4 07/26/2016 Active 1,000 mg tablet mouth 2 (two) times a day with meals. irbesartan (AVAPRO) 150 Take 150 mg by 4 09/04/2016 Active MG tablet mouth every morning. cholecalciferol, Take 50,000 Units 1 08/09/2016 Active vitamin D3, 50,000 unit by mouth once a capsule week. Usually takes on sunday rosuvastatin (CRESTOR) Take 10 mg by 0 Active 10 mg tablet mouth daily. pantoprazole (PROTONIX) Take 40 mg by 0 Active 40 MG EC tablet mouth daily. busPIRone (BUSPAR) 15 Take 15 mg by 0 Active MG tablet mouth 3 (three) times a day. Active Problems Problem Noted Date Rectal mass 09/06/2016 Encounters Date Type Specialty Care Team Description 04/15/2020 Hospital Encounter Radiology Yonathan Hameed, Srinivas er cirrhosis of liver (HCC) 04/15/2020 Travel 04/05/2020 Travel 04/05/2020 Transcribe Orders Access Yonathan Hameed Othe r cirrhosis of liver (HCC) (Primary Dx) 12/12/2019 Hospital Encounter Radiology Yonathan Hameed, Bryce rhoyair (HCC) 12/12/2019 Travel 11/17/2019 Transcribe Orders Radiology Yonathan Hameed, Brycer alejandra (HCC) (Primary MD Dx) after 05/24/2019 Surgical History Surgery Date Site/Laterality Comments COLONOSCOPY 07/26/2016 - rectal mass 08/25/2016 RESECTION, COLON, LOW 09/26/2016 Abdomen/N/A Procedure: LAPAROSCOPIC ANTERIOR, LAPAROSCOPIC LOW ANTER IOR RESECTION ; Surgeon: Adriel Polo MD; Location: [facility]; Service: General ; Laterality: N/A; Medical devices from this surgery are in t he Implants section . Medical History Medical History Date Comments Diabetes mellitus (HCC) Hyperlipidemia not on meds Hypertension under control Exercises 3 to 4 times per week bike/wal k- 60min- no sob/no chest pain Anesthesia nhap/nfhap- no sob / no chest pain on stairs Arthritis fingers Rectal mass 07/2016 possible cancer; had bloody stools Sleep apnea to bring cpap and [facility] does not use it anymore Type 2 diabetes mellitus (HCC) borderlin e Cirrhosis (HCC) Family History Medical History Relation Name Comments Heart disease Father Hepatitis Mother Liver disease Mother Heart disease Paternal Aunt Diabetes Sister emilia Heart disease Sister emilia Stroke Sister emilia Diabetes Sister bebeto Diabetes Sister juana Relation Name Status Comments Father Alive Mother Paternal Aunt Sister emilia Alive Sister bebeto Alive Sister juana Alive Social History Tobacco Use Types Packs/Day Years Used Date Never Smoker Smokeless Tobacco: Never Used Alcohol Use Drinks/Week oz/Week Comments Yes occasional Sex Assigned at Date Recorded Not on file Job Start Date Occupation Industry Not on file Not on file Not on file Last Filed Vital Signs Vital Sign Reading Time Taken Comments Blood Pressure 125/65 12/12/2019 4:45 PM CDT Pulse 78 12/12/2019 4:45 PM CDT Temperature 36.5 C (97.7 F) 12/12/2019 3:15 PM CDT Respiratory Rate 17 12/12/2019 4:45 PM CDT Oxygen Saturation 98% 12/12/2019 4:45 PM CDT Inhaled Oxygen Concentration - - Weight 77.6 kg (171 lb) 04/15/2020 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 Height 152.4 cm (5') 12/12/2019 11:42 AM CDT Body Mass Index 33.4 12/12/2019 11:42 AM CDT Plan of Treatment Health Maintenance Due Date Last Done Comments COVID-19 VACCINE (#1) 1977 CERVICAL CANCER SCREENING 1982 BREAST CANCER SCREENING 2011 COLONOSCOPY SCREENING 2011 SHINGLES VACCINES (#1) 2011 INFLUENZA VACCINE 12/27/2019 Implants Implanted Type Area Geological Scout Device Shelf Model / Identifier Expiration Serial / Date Lot Device Daniele Lazaro 3mm Crvd Tip 45cm 5mm - [id number] Surgical N/A: N/A ETHICON ETRIO [id number] / Implanted: Qty: 1 on 09/26/2016 by Adriel Ploo MD at [facility] Implants; ENDO-MECHANICAL / Expanders; Extenders; Surgical Wires Procedures Procedure Name Priority Date/Time Associated Comments Diagnosis MRI ABDOMEN W WO Routine 04/15/2020 9:52 Other cirrhosis of R esults for this CONTRAST AM 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 POC GLUCOSE Routine 12/12/2019 2:03 Results for this PM CDT procedure are i n the results section. IR TRANSJUGULAR LIVER Routine 12/12/2019 1:55 Cirrhosis (HCC) Results for this BIOPSY PM CDT procedure are i n the results section. SURGICAL PATHOLOGY Routine 12/12/2019 1:42 Resul ts for this REQUEST PM CDT procedure are i n the results section. POC GLUCOSE Routine 12/12/2019 12:06 Results for this PM CDT procedure are i n the results section. after 05/24/2019 Results MRI Abdomen W Wo Contrast (04/15/2020 9:52 AM OIL ANALYST) Specimen Narrative Performed At This result has an attachment that is no t available. EXAMINATION: MRI ABDOMEN W WO CONTRAST [facility] CLINICAL HISTORY:60 years Female K74.69 Other cirrh osis of liver, k74.69 COMPARISON: None. TECHNIQUE: Multiplanar, multisequence MR I of the abdomen with and without intravenous gadolinium. FINDINGS: The liver cirrhotic. There are a few tiffani y tiny arterial hypervascular foci scattered in both lobes which are indeterminate but likely benign perfusional in nature. There are several slightly T1 hyperintense and T2 hypointense nodules consistent with dysplastic nodules, most conspicuous in segment 5 measuring 1 (image 431, series 44B). Portal vein is patent. Moderate splenomegaly. No ascit es. Esophageal varices are seen. Cholelithiasis. No biliary dilatation. Grossly normal pancreas. Subcentimeter cyst in the left kidney. No adrenal mass . No hydronephrosis. No lymphadenopathy. IMPRESSION: 1.Liver cirrhosis and portal hypertensio n with esophageal varices. Patent portal vein. 2.No definite evidence of HCC. Attention on follow-up for a few tiny hypervascular foci (LR3) and dysplastic nodules. 3.Cholelithiasis. [id number] Procedure Note Interface, Radiology Results Incoming - 04/15/2020 10:46 AM OIL ANALYST EXAMINATION: MRI ABDOMEN W WO CONTRAST CLINICAL HISTORY:60 years Female K74.6 9 Other cirrhosis of liver, k74.69 COMPARISON: None. TECHNIQUE: Multiplanar, multisequence MR I of the abdomen with and without intravenous gadolinium. FINDINGS: The liver cirrhotic. There are a few tiffani y tiny arterial hypervascular foci scattered in both lobes which are indeterminate but likely benign perfusional in nature. There are several slightly T1 hyperintense and T2 hypointense nodules consistent with dysplastic nodules, most conspicuous in segment 5 measuring 1 (image 431, series 44B). Portal vein is patent. Moderate splenome yaakov. No ascites. Esophageal varices are seen. Cholelithiasis. No biliary dilatation. Grossly normal pancreas. Subcentimeter cyst in the left kidney. N o adrenal mass. No hydronephrosis. No lymphadenopathy. IMPRESSION: 1.Liver cirrhosis and portal hypertensio n with esophageal varices. Patent portal vein. 2.No definite evidence of HCC. Attention on follow-up for a few tiny hypervascular foci (LR3) and dysplastic nodules. 3.Cholelithiasis. [id number] Performing Organization Address City/[facility]/[place]IP [facility] Ph[place] Number [address] [address] POC glucose (12/12/2019 2:03 PM CDT)Only the most recent of2 resultswithin the time period is included. Pathologist Sig nature POC glucose 106 (H) 65 - 99 mg/dL 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 Anesthesia Type: Moderate sedation was administered by the procedure nu rse and monitored by the procedure physician for a ushl-fp-nflu sedation time of 35 minutes. Lidocaine 1% was used for local anesthetic. Procedure 1. Right hepatic venogram with pressure measurements. 2. Transjugular liver biopsy. Technique Written informed consent was obtained prior to the pro cedure. All elements of maximal sterile barrier technique were fol lowed. The patient's right neck was sterilely prepared and draped in the routine manner. Lidocaine 1% was used for local anesthetic. Using real-time ultrasound guidance, a 21-gauge microp uncture needle was used to access the right internal jugular vein. A 0.01 8 inch guidewire was advanced centrally under fluoroscopy. The needle w as removed and a micropuncture sheath system was placed. Under ultrasound guidance, documentation of vessel pa tency, needle access with permanent recording, and reporting are per formed followed by placement of a sheath in the right internal jugular ve in. A 0.035 inch Amplatz wire was then advanced through t he micropuncture sheath and into the inferior vena cava. A long 9-Kittitian vascular sheath was then placed, and advanced over the guidewire into the right atrium. Right atrial pressure measures were then obtained. A 5-Kittitian multipurpose catheter was advanced over the guidewire and used to select the rig ht hepatic vein. A right hepatic venogram was performed with injection of contrast. Pressure measurements were also obtained in both the f ree and wedge positions. The 9-Kittitian vascular sheath was then advanced into the right hepatic vein. The transjugula r liver biopsy system was advanced through the 9-Kittitian vascular rodriguez th, and multiple 18-gauge core liver biopsy specimens were obtained and submitted to pathology. The transjugular liver biopsy system and 9-Kittitian vascular sheath were then removed from the right internal jugular vein, and hemostasis was achieved wit h manual compression. The patient tolerated the p rocedure well. Radiation Dose Ka, r = 323 mGy Complications None. Specimens Removed As described in the above report. Estimated Blood Loss Less than 2 mL Blood/Blood Products Administered None Grafts/Implants None IMPRESSION: 1. A right hepatic venogram demonstrates a dilated rig ht hepatic vein with antegrade blood flow. 2. Successful transjugular liver biopsy was performed, as detailed above. 3. Pressure measurements: Right atrium: 6 mmHg Free hepatic: 3 mmHg Wedge hepatic: 8 mmHg [facility]-[id number] Dictated and approved by radiology resid ent/fellow: Jesus Alberto Leon M.D. I, ASHLYN PHAN MD, personally reviewed the images and resident's/fellow's findings and agree with the final report. Procedure Note [facility], Radiology Results Incoming - 12/12/2019 2:34 PM CDT Performing Radiologist: Ashlyn Phan MD EXAMINATION: IR TRANSJUGULAR LIVER BIOP SY CLINICAL HISTORY: K74.60 Unspecified cir rhosis of liver, CIRRHOSIS COMPARISON:None. Anesthesia Type: Moderate sedation was administered by e procedure nurse and monitored by the procedure physician for a mwpd-sh-wehm sedation time of 35 minutes. Lidocaine 1% was used for local anesthetic. Procedure 1. Right hepatic venogram with pressure measurements. 2. Transjugular liver biopsy. Technique Written informed consent was obtained pr ior to the procedure. All elements of maximal sterile barrier technique were followed. The patient's right neck was sterilely prepared and draped in the routine manner. Lidocaine 1% was used for local anesthetic. Using real-time ultrasound guidance, a 2 1-gauge micropuncture needle was used to access the right internal jugular vein. A 0.018 inch guidewire was advanced centrally under fluoroscopy. The needle was removed and a micropuncture sheath system was placed. Under ultrasound guidance, documentatio n of vessel patency, needle access with permanent recording, and reporting are performed followed by placement of a sheath in the right internal jugular vein. A 0.035 inch Amplatz wire was then advanced through t he micropuncture sheath and into the infer ior vena cava. A long 9-Kittitian vascular sheath was then placed, and advanced over the guidewire into the right atrium. Right atrial pressure measures were then obtained. A 5-Kittitian multipurpose catheter was advanced over the guidewire and used to select the right hepatic vein. A right hepatic venogram was performed with injection of contrast. Pressure measurements were also obtained in both the free and wedge positions. The 9-Kittitian vascular sheath was then advanced into the right hepatic vein. T Videology transjugular liver biopsy system was advanced through the 9-Kittitian vascular sheath, and multiple 18-gauge core liver biopsy specimens were obtained and submitted to pathology. The transjugular liver biopsy system and 9-Kittitian vascular sheath were then removed from the right internal jugular vein, and hemostasis was achieved with manual compression. The patient tolerated the procedure well. Radiation Dose Ka, r = 323 mGy Complications None. Specimens Removed As described in the above report. Estimated Blood Loss Less than 2 mL Blood/Blood Products Administered None Grafts/Implants None IMPRESSION: 1. A right hepatic venogram demonstrates a dilated right hepatic vein with antegrade blood flow. 2. Successful transjugular liver biopsy was performed, as detailed above. 3. Pressure measurements: Right atrium: 6 mmHg Free hepatic: 3 mmHg Wedge hepatic: 8 mmHg [facility]-[id number] Dictated and approved by radiology resid ent/fellow: Jesus Alberto Leon M.D. I, ASHLYN PHAN MD, personally reviewed the images and resident's/fellow's findings and agree with the final report. Performing Organization Address City/[facility] Phon e Number [facility] [address] [place] [address] Surgical pathology request (12/12/2019 1:42 PM CDT) [facility] DEPARTMENT OF PATHOLOGY AND GENOMIC MEDICINE Surgical pathology See link below [facility] DEPARTMENT OF report for PDF Lab PATHOLOGY AND Report GENOMIC MEDICINE Result status This is Final [facility] DEPARTMENT OF Report for PATHOLOGY AND [id number] GENOMIC MEDICINE Specimen Performing Organization Address [facility] Phon e Number [facility] DEPARTMENT OF PATHOLOGY AND [address] [place], [place] [phone] GENOMIC MEDICINE after 05/24/2019 Guarantor Name Account Type Relation to Date of Phone Bill ing Patient Address Zeny Fox Personal/Family Self 1960 [address] [facility] (Home) [place] [address] Advance Directives For more information, please contact: [phone] Type Date Recorded Patient Roll Forger Explanati on Advance Directives, Living Will and Medical Power of Curriculum And Instruction Specialist
--- OUTSIDE RECORDS SUMMARY | 2020-05-24 09:59 | XMS REPORT | Continuity of Care Document ---
:1960 Author Organization [facility] t Address [address] [place] [address] Care Team Providers Name Role Phone Leno Herrera MD Primary Care Physician Yoseph SPENCER S. Attending Clinician Payers Payer Name Policy Type Policy Effective Date Expiration Date [facility] ce Number BCBSBCBS CHOICE [id number] 2016 [place] PPO/FEDERAL 00:00:00 [employer] EMPL [id number] 2016-Presen tPPO Problems Condition Condition Condition Status Onset Resolution Last Treating Co mments Source Name Details Category Date Date Treatment Clinician Date Rectal Rectal Disease Active [place] [facility] 4[facility]12 [facility] 00:00: st 00 Allergies, Adverse Reactions, Alerts This patient has no known allergies or adverse reactions. Family History Family Member Diagnosis Comments Start Date Stop Date Source Natural father Heart disease [place] [facility] Natural mother Hepatitis [place] [facility] Natural mother Liver disease [place] [facility] Paternal aunt Heart disease [place] [facility] Natural sister Heart disease [facility] Natural sister Stroke [facility] Natural sister Diabetes [facility] Social History Social Habit Start Date Stop Date Quantity Comments Source Sex Assigned At [facility] ethodi Tobacco use and 2020-04-15 2020-04-15 Never used [facility] ethodist exposure 00:00:00 00:00:00 Alcohol intake 2020-04-15 2020-04-15 Current drinker of [place] [facility] 00:00:00 00:00:00 alcohol (finding) Alcohol Comment 2016-09-20 2016-09-20 occasional [facility] ethodist 00:00:00 00:00:00 Smoking Status Start Date Stop Date Source Never smoker Armando Caceres t Medications Ordered Filled Start Stop Current Ordering Indication Dosage Frequency Signature Comments Components Source Medication Medication Date Date Medication? Clinician (SIG) Name Name rosuvastati Yes 10mg QD Take 10 mg Armando n (CRESTOR) 7-17 by mouth Meth cody 10 mg 11:44: daily. st tablet 27 pantoprazol Yes 40mg QD Take 40 mg Armando e 7-17 by mouth [facility] (PROTONIX) 11:44: daily. st 40 MG EC 27 tablet busPIRone Yes 15mg Q.[id number] Take 15 mg [facility] (BUSPAR) 15 7-17 [id number] by mouth 3 [facility] MG tablet 11:44: 3D (three) st 27 times a day. irbesartan Yes 150mg QD Take 150 [place] (AVAPRO) 4-10 mg by [facility] 150 MG 00:00: mouth st tablet 00 every morning. cholecalcif Yes [id number] Q7D Take Cecille adames katia, 3-15 50,000 [facility] vitamin D3, 00:00: Units by st 50,000 unit 00 mouth once capsule a week. Usually takes on sunday metFORMIN Yes 1000mg Q.5D Take 1,000 [place] (GLUCOPHAGE 3-01 mg by [facility] ) 1,000 mg 00:00: mouth 2 st tablet 00 (two) times a day with meals. Vital Signs Vital Name Observation Time Observation Value Comments Source Body weight 2020-04-15 09:12:00 77.565 kg Armando Brown BMI 2020-04-15 09:12:00 33.40 kg/m2 Armando Brown Systolic blood 2019-12-12 16:45:00 125 mm[Hg] [place] n [facility] pressure Diastolic blood 2019-12-12 16:45:00 65 mm[Hg] [place] on [facility] pressure Heart rate 2019-12-12 16:45:00 78 /min Armando Brown Respiratory rate 2019-12-12 16:45:00 17 /min Cecille Brown Oxygen saturation in 2019-12-12 16:45:00 98 /min Armando Bronw Arterial blood by Pulse oximetry Body temperature 2019-12-12 15:15:00 36.5 Hannah Cecille Brown Body height 2019-12-12 11:42:00 152.4 cm Armando Brown Procedures Procedure Date / Time Performed Performing Clinician Sourc e MRI ABDOMEN W WO CONTRAST 2020-04-15 09:52:00 YosephYonathanPradeep Brown POC GLUCOSE 2019-12-12 14:03:00 YosephYonathanPradeep [facility] IR TRANSJUGULAR LIVER 2019-12-12 13:55:00 Yonathan Hameed BIOPSY SURGICAL PATHOLOGY 2019-12-12 13:42:00 Yoseph Yonathan JiangPradeep Brown REQUEST POC GLUCOSE 2019-12-12 12:06:00 DinoYonathan keePradeep [facility] Plan of Care Planned Activity Planned Date Details Comments Source Future Scheduled 2019-12-27 INFLUENZA VACCINE [place] [facility] 00:00:00 [code = INFLUENZA VACCINE] Future Scheduled 2011 BREAST CANCER [place] [facility] Test 00:00:00 SCREENING [code = BREAST CANCER SCREENING] Future Scheduled 2011 COLONOSCOPY SCREENING [place] [facility] 00:00:00 [code = COLONOSCOPY SCREENING] Future Scheduled 2011 SHINGLES VACCINES [place] [facility] 00:00:00 (#1) [code = SHINGLES VACCINES (#1)] Future Scheduled 1982 Screening for [place] [facility] Test 00:00:00 malignant neoplasm of cervix (procedure) [code = 927683362] Future Scheduled 1977 COVID-19 VACCINE (#1) [place] [facility] Test 00:00:00 [code = COVID-19 VACCINE (#1)] Encounters Start End Encounter Admission Attending Care Care Encounter Source Date/Time Date/Time Type Type Clinicians Facility Department ID 2020-04-15 2020-04-15 Outpatient [facility] [id number] [place] 00:00:00 00:00:00 YONATHAN [address] 2019-12-12 2019-12-12 Outpatient [facility] [id number] [place] 00:00:00 00:00:00 YONATHAN [address] Results Test Description Test Time Test Comments Results Result Sourc e Comments MRI Abdomen W Wo 2020-03-28 Shelley Matt on Contrast [address] 10:43:10 04/15/2020 10:46 AM CSTEXAMINATION: MRI ABDOMEN W WO CONTRASTCLINICAL HISTORY:60 years Female K74.69 Other cirrhosis of liver, k74.69COMPARISON: None.TECHNIQUE: Multiplanar, multisequence MRI of the abdomen with and without intravenous gadolinium.FINDINGS:T he liver cirrhotic. There are a few very tiny arterial hypervascular foci scattered in both lobes which are indeterminate but likely benign perfusional in nature. There are several slightly T1 hyperintense and T2 hypointense nodules consistent with dysplastic nodules, most conspicuous in segment 5 measuring 1 (image 431, series 44B).Portal vein is patent. Moderate splenomegaly. No ascites.Esophageal varices are seen.Cholelithiasis. No biliary dilatation.Grossly normal pancreas.Subcentimete r cyst in the left kidney. No adrenal mass. No hydronephrosis.No lymphadenopathy.IMPRE SSION:1.Liver cirrhosis and portal hypertension with esophageal varices. Patent portal vein.2.No definite evidence of HCC. Attention on follow-up for a few tiny hypervascular foci (LR3) and dysplastic nodules.3.Cholelithia sis.[id number] Surgical pathology request 2019-12-18 12:59:22 Test Item Value Reference Range Interpretation Comme nts Case number (test code = [id number]) [id number] Surgical pathology report (test code = See link below for PDF Lab R eport 225) Result status (test code = 6375688) This is Final Report for [id number] 1975-07 [facility] Transjugular Liver [id number] 14:30:54Hm Interface, Radiology Results 12/12/2019 2:34 PM CDTPerforming Radiologist: Ashlyn Phan MD EXAMINATION: IR TRANSJUGULAR LIVER BIOPSYCLINICAL HISTORY: K74.60 Unspecified cirrhosis of liver, CIRRHOSISCOMPARISON:None.Anesthesia Type:Moderate sedation was administered by the procedure nurse and monitored by the procedure physician for a nevm-su-lhuj sedation time of 35 minutes. Lidocaine 1% was used for local anesthetic. Procedure1. Right hepatic venogram with pressure measurements. 2. Transjugular liver biopsy. TechniqueWritten informed consent was obtained prior to the procedure. All elements of maximal sterile barrier technique were followed. The patient's right neck was sterilely prepared and draped in the routine manner. Lidocaine 1% was used for local anesthetic. Using real-timeultrasound guidance, a 21-gauge micropuncture needle was used to access the right internal jugular vein. A 0.018 inch guidewire was advanced centrally under fluoroscopy. The needle was removed and a micropuncture sheath system was placed. Under ultrasound guidance, documentation of vessel patency, needle access with permanent recording, and reporting are performed followed by placement of a sheath inthe right internal jugular vein. A 0.035 inch Amplatz wire was then advanced through the micropuncture sheath and into the inferior vena cava. A long 9-Cypriot vascular sheath was then placed, and advanced over the guidewire into the right atrium. Right atrial pressure measures were then obtained. A 5-Cypriot multipurpose catheter was advanced over the guidewire and used to select the right hepatic vein. A right hepatic venogram was performed with injection of contrast. Pressure measurements were alsoobtained in both the free and wedge positions. The 9-Cypriot vascular sheath was then advanced into the right hepatic vein. The transjugular liver biopsy system was advanced through the 9-Cypriot vascular sheath, and multiple 18-gauge core liver biopsy specimens were obtained and submitted to pathology.The transjugular liver biopsy system and 9-Cypriot vascular sheath were then removed from the right internal jugular vein, and hemostasis was achieved with manual compression. The patient tolerated the procedure well. Radiation DoseKa, r = 323 mGyComplicationsNone. Specimens RemovedAs described in the above report. Estimated Blood LossLess than 2 mL Blood/Blood Products AdministeredNone Grafts/ImplantsNone IMPRESSION: 1. A right hepatic venogram demonstrates a dilated right hepatic vein with antegrade blood flow. 2. Successful transjugular liver biopsy was performed, as detailed above. 3. Pressure measurements: Right atrium: 6 mmHg Free hepatic: 3 mmHg Wedge hepatic: 8 mmHg [facility]-[id number] and approved by radiology orderly/fellow: Theron Duggan, ASHLYN PHAN MD, personally reviewedthe images and resident's/fellow's findings and agree with the final report.[facility] [id number] 14:05:29 Test Item Value Reference Range Interpretation Comments POC glucose (test code 106 mg/dL 65-99 H [facility] Name: [facility] = [id number]) RoxanaDevice ID : [id number] Lab Interpretation Abnormal (test code = 09027-9) Armando Brown
[2020-05-24 10:02] LABS: Absolute Lymphocytes (CBC) 0.9 K/uL (0.7-4.9); Basophils % 0.4 % (0-1.3); Hematocrit 41.5 % (36.0-45.0); Lymphocytes % 16.9 % (15.3-44.8); MPV 9.6 fL (7.6-11.3); RBC Red Blood Cell Count 4.47 M/uL (3.86-4.86)
[2020-05-24 10:13] LABS: Potassium 3.8 mmol/L (3.5-5.1)
--- NOTE | 2020-05-24 11:00 | RAD REPORT ---
EXAM DESCRIPTION: RAD - Chest Single View - 05/24/2020 10:39 am CLINICAL HISTORY: Cough;Dyspnea Chest pain. COMPARISON: Chest Single View dated 07/14/2019 FINDINGS: Portable technique limits examination quality. The lungs are underinflated resulting in vascular crowding. The heart is normal in size. No displaced fractures. IMPRESSION: Underinflated lungs.
[2020-05-24] MEDS ORDERED: ACETAMINOPHEN 500 MG TAB ONE (11:04)
[2020-05-24] MEDS ORDERED: NA CHLORIDE 0.9% 1,000 ML ONE (11:04)
--- NOTE | 2020-05-24 11:13 | RAD REPORT ---
EXAM DESCRIPTION: CT - Chest For Pe Angio - 05/24/2020 10:54 am CLINICAL HISTORY: Chest pain. DYSPNEA COMPARISON: No comparisons TECHNIQUE: CT angiogram of the pulmonary arteries was performed with MIP. All CT scans are performed using dose optimization technique as appropriate and may include automated exposure control or mA/KV adjustment according to patient size. FINDINGS: No evidence of pulmonary thromboembolism. No acute aortic finding demonstrated. Subtle ground-glass opacities are present in both lungs peripherally which can be seen in bronchitis/ viral pneumonitis. No significant pericardial or pleural fluid. No concerning bony finding. Liver cirrhosis with splenomegaly is noted in the upper abdomen. Numerous gallstones are present. IMPRESSION: No evidence of pulmonary thromboembolism. Subtle ground-glass opacities bilaterally and peripherally located likely represents bronchitis/ laya l pneumonitis. Liver cirrhosis with mild splenomegaly. Cholelithiasis.
--- NOTE | 2020-05-24 11:19 | ER ---
Nurse's Notes [facility] Name: Zeny Fox Age: 60 yrs Sex: Female : 1960 Arrival Date: 05/24/2020 Time: 09:11 Bed 23 Private MD: Diagnosis: Coronavirus infection, unspecified Presentation: 05/24 09:21 Chief complaint: Patient states: family member tested positive for COVID, pt started iw having headache, chest pain, cough, diff breathing and loss of sense of taste and smell, cough started 5 days ago, was given abx and steroid by Dr. Herrera. Coronavirus screen: Client presents with at least one sign or symptom that may indicate coronavirus-19. Standard/surgical mask placed on the client. Provider contacted for isolation considerations. Ebola Screen: Patient negative for fever greater than or equal to 101.5 degrees Fahrenheit, and additional compatible Ebola Virus Disease symptoms Patient denies exposure to infectious person. Patient denies travel to an Ebola-affected area in the 21 days before illness onset. No symptoms or risks identified at this time. Initial Sepsis Screen: Does the patient meet any 2 criteria? No. Patient's initial sepsis screen is negative. Does the patient have a suspected source of infection? No. Patient's initial sepsis screen is negative. Risk Assessment: Do you want to hurt yourself or someone else? Patient reports no desire to harm self or others. Onset of symptoms was May 19, 2020. 09:21 Method Of Arrival: Ambulatory iw 09:21 Acuity: JAMES 3 iw Triage Assessment: 11:50 General: Appears ill, Behavior is calm, cooperative, appropriate for age. Pain: ll1 Complains of pain in [place]. Historical: - Allergies: 09:25 No Known Allergies; iw - Home Meds: 09:25 irbesartan 75 mg Oral tab 1 tab once daily [Active]; metformin 1,000 mg Oral tab 1 tab iw 2 times per day [Active]; rosuvastatin 10 mg Oral tab 1 tab once daily [Active]; Methylprednisolone Oral [Active]; pantoprazole 40 mg oral TbEC 1 tab once daily [Active]; ezetimibe oral oral once daily [Active]; azathioprine 50 mg Oral tab 2 tabs once daily [Active]; - PMHx: 09:25 colon cancer; Diabetes - IDDM; fatty liver; Hyperlipidemia; Hypertension; iw - PSHx: 09:25 Colon resection; iw - Immunization history:: Adult Immunizations not up to date. - Social history:: Smoking status: Patient denies any tobacco usage or history of. - Family history:: not pertinent. - Hospitalizations: : No recent hospitalization is reported. Screenin:02 Abuse screen: Denies threats or abuse. Nutritional screening: No deficits noted. ll1 Tuberculosis screening: No symptoms or risk factors identified. Fall Risk IV access (20 points). Total Fraga Fall Scale indicates No Risk (0-24 pts). Assessment: 10:01 Pain: Complains of pain in chest Pain does not radiate. Pain began 05/17/20. Neuro: ll1 Level of Consciousness is awake, alert, obeys commands, Oriented to person, place, time, situation, Appropriate for age Speech is normal, Facial symmetry appears normal, Reports headache. Cardiovascular: Reports chest pain, shortness of breath, Heart tones S1 S2 Capillary refill < 3 seconds Clubbing of nail beds is absent Patient's skin is warm and dry. Pulses are all present. Respiratory: Reports shortness of breath cough that is Airway is patent Trachea midline Respiratory effort is even, unlabored, Respiratory pattern is regular, symmetrical, Breath sounds are clear bilaterally. Onset: The symptoms/episode began/occurred 05/17/20, the patient has mild shortness of breath. 11:00 Reassessment: No changes from previously documented assessment. Patient and/or family ll1 updated on plan of care and expected duration. Pain level reassessed. 11:55 Reassessment: Received report from Ale KAY that patient was up for d/c but waiting vg1 for IV fluids to finish. 12:04 General: Appears in no apparent distress. comfortable, Behavior is calm, cooperative. vg1 12:04 Pain: Denies pain. Neuro: Level of Consciousness is awake, alert, obeys commands, vg1 Oriented to person, place, time, situation. Cardiovascular: Patient's skin is warm and dry. Respiratory: Airway is patent Respiratory effort is even, unlabored, Respiratory pattern is regular, symmetrical. GI: No signs and/or symptoms were reported involving the gastrointestinal system. : No signs and/or symptoms were reported regarding the genitourinary system. EENT: No signs and/or symptoms were reported regarding the EENT system. Derm: Skin is intact, is healthy with good turgor. Musculoskeletal: Range of motion: intact in all extremities. Vital Signs: 09:21 BP 132 / 73; Pulse 117; Resp 20; Temp 97.8; Pulse Ox 95% on R/A; Weight 76.66 kg; iw Height 5 ft. 0 in. (152.40 cm); Pain 6/10; 10:40 BP 94 / 61; Pulse 101; Resp 18; Temp 100.1; Pulse Ox 97% on R/A; ll1 11:49 BP 117 / 52; Pulse 97; Resp 18; Pulse Ox 97% on R/A; ll1 12:02 BP 111 / 51; Pulse 88; Resp 18; Pulse Ox 98% on R/A; vg1 09:21 Body Mass Index 33.01 (76.66 kg, 152.40 cm) iw 10:40 Got the chiils, cold sweat, nausea. Dr. Srivastava informed. ll1 ED Course: 09:11 Patient arrived in ED. rg4 09:24 Triage completed. iw 09:26 Chinyere Pendleton, RN is Primary Nurse. iw 09:26 Arm band placed on. iw 09:31 Jaiden Srivastava MD is Attending Physician. rn 09:53 Initial lab(s) drawn, by sd, sent to lab. Inserted saline lock: 20 gauge in right iw antecubital area, using aseptic technique. Blood collected. 10:02 Patient has correct armband on for positive identification. Bed in low position. Call ll1 light in reach. Side rails up X 1. 10:02 No provider procedures requiring assistance completed. Patient maintains SpO2 ll1 saturation greater than 95% on room air. 10:39 XRAY Chest (1 view) In Process Unspecified. EDMS 10:54 CT Chest For PE Angio In Process Unspecified. EDMS 12:24 IV discontinued, intact, bleeding controlled, No redness/swelling at site. Pressure vg1 dressing applied. Administered Medications: 11:19 Drug: NS 0.9% 1000 ml Route: IV; Rate: 1000 ml; Site: right antecubital; ll1 12:20 Follow up: IV Status: Completed infusion; IV Intake: 1000ml vg1 11:19 Drug: Tylenol 1000 mg Route: PO; ll1 12:19 Follow up: Response: No adverse reaction vg1 Intake: 12:20 IV: 1000ml; Total: 1000ml. vg1 Outcome: 11:18 Discharge ordered by . rn 12:23 Discharged to home ambulatory. vg1 12:23 Condition: stable 12:23 Discharge instructions given to patient, Instructed on discharge instructions, follow up and referral plans. medication usage, Demonstrated understanding of instructions, follow-up care, medications, Prescriptions given X 1. 12:24 Patient left the ED. vg1 Addendum: 05/26/2020 09:19 Addendum: COVID-19 Result: Positive result giiven to ED physician to notify pt. d m5 Physician: Gerald Cid MD Physician was able to contact pt and pt was notified of positive COVID-19 swab result. Physician answered pt questions. Signatures: Dispatcher [employer] EDMS Erin Romeo, RN RN dm5 Chinyere Pendleton RN RN iw Jaiden Srivastava MD MD rn Garcia, Rubi rg4 Carli Huerta RN ELIZA vg1 Samira eNville RN ELIZA ll1
--- NOTE | 2020-05-24 11:20 | EDPHYS ---
Physician Documentation [facility] Name: Zeny Fox Age: 60 yrs Sex: Female : 1960 Arrival Date: 05/24/2020 Time: 09:11 Bed 23 Private MD: ED Physician Jaiden Srivastava HPI: 05/24 10:00 This 60 yrs old Female presents to ER via Ambulatory with complaints of Chest rn Pain, cough, sob. 10:00 The patient or guardian reports chest pain that is located primarily in the anterior rn chest wall. 10:01 Onset: 5 day(s) ago. The pain does not radiate. Associated signs and symptoms: rn Pertinent positives: cough, shortness of breath, Pertinent negatives: abdominal pain, lower extremity swelling, syncope, vomiting. The chest pain is described as sharp, stabbing. Duration: The patient or guardian reports multiple episodes, that are intermittent. Modifying factors: The symptoms are alleviated by nothing. the symptoms are aggravated by cough, deep breath. Severity of pain: At its worst the pain was mild in the emergency department the pain is unchanged. The patient has not experienced similar symptoms in the past. The patient has been recently seen by a physician:. Reports cough for 5 days, now having mild sob and chest pain, multiple family members COVID +. . Historical: - Allergies: 09:25 No Known Allergies; iw - Home Meds: 09:25 irbesartan 75 mg Oral tab 1 tab once daily [Active]; metformin 1,000 mg Oral tab 1 tab iw 2 times per day [Active]; rosuvastatin 10 mg Oral tab 1 tab once daily [Active]; Methylprednisolone Oral [Active]; pantoprazole 40 mg oral TbEC 1 tab once daily [Active]; ezetimibe oral oral once daily [Active]; azathioprine 50 mg Oral tab 2 tabs once daily [Active]; - PMHx: 09:25 colon cancer; Diabetes - IDDM; fatty liver; Hyperlipidemia; Hypertension; iw - PSHx: 09:25 Colon resection; iw - Immunization history:: Adult Immunizations not up to date. - Social history:: Smoking status: Patient denies any tobacco usage or history of. - Family history:: not pertinent. - Hospitalizations: : No recent hospitalization is reported. ROS: 10:01 Constitutional: + chills Eyes: Negative for injury, pain, redness, and discharge, ENT: rn + congestion and loss of taste and smell Cardiovascular: Negative for palpitations, and edema, Respiratory: + cough and sob. Abdomen/GI: Negative for abdominal pain, nausea, vomiting, diarrhea, and constipation, Back: Negative for injury and pain, : Negative for injury, bleeding, discharge, and swelling, MS/Extremity: Negative for injury and deformity, Skin: Negative for injury, rash, and discoloration, Neuro: Negative for numbness, tingling, and seizure. Exam: 10:01 Constitutional: This is a well developed, well nourished patient who is awake, alert, rn and in no acute distress. Head/Face: Normocephalic, atraumatic. Eyes: Periorbital areas with no swelling, redness, or edema. Cardiovascular: Regular rate and rhythm. No pulse deficits. Respiratory: Mild tachypnea. Skin: Warm, dry MS/ Extremity: Pulses equal, no cyanosis. Neuro: Awake and alert, GCS 15, oriented to person, place, time, and situation. Cranial nerves II-XII grossly intact. Motor strength 5/5 in all extremities. Sensory grossly intact. Cerebellar exam normal. Normal gait. Vital Signs: 09:21 BP 132 / 73; Pulse 117; Resp 20; Temp 97.8; Pulse Ox 95% on R/A; Weight 76.66 kg; iw Height 5 ft. 0 in. (152.40 cm); Pain 6/10; 10:40 BP 94 / 61; Pulse 101; Resp 18; Temp 100.1; Pulse Ox 97% on R/A; ll1 11:49 BP 117 / 52; Pulse 97; Resp 18; Pulse Ox 97% on R/A; ll1 12:02 BP 111 / 51; Pulse 88; Resp 18; Pulse Ox 98% on R/A; vg1 09:21 Body Mass Index 33.01 (76.66 kg, 152.40 cm) iw 10:40 Got the chiils, cold sweat, nausea. Dr. Srivastava informed. ll1 MDM: 09:31 Patient medically screened. rn 11:17 Differential diagnosis: pneumonia, pulmonary embolus, COVID-19, dehydration fever. Data rn reviewed: vital signs, nurses notes, lab test result(s), radiologic studies, CT scan, plain films, and as a result, I will discharge patient. Data interpreted: Pulse oximetry: on room air is 95 %. Interpretation: acceptable. Counseling: I had a detailed discussion with the patient and/or guardian regarding: the historical points, exam findings, and any diagnostic results supporting the discharge/admit diagnosis, lab results, radiology results, the need for outpatient follow up, to return to the emergency department if symptoms worsen or persist or if there are any questions or concerns that arise at home. 05/24 09:40 Order name: CBC with Diff rn 05/24 09:40 Order name: Basic Metabolic Panel; Complete Time: 10:42 rn 05/24 09:40 Order name: Procalcitonin; Complete Time: 10:42 rn 05/24 09:40 Order name: COVID-19 rn 05/24 09:40 Order name: Flu; Complete Time: 11:17 rn 05/24 11:52 Order name: CBC Smear Scan EDWI 05/24 09:40 Order name: XRAY Chest (1 view); Complete Time: 11:17 rn 05/24 09:40 Order name: IV Start; Complete Time: 10:05 rn 05/24 09:40 Order name: CT Chest For PE Angio; Complete Time: 11:17 rn Administered Medications: 11:19 Drug: NS 0.9% 1000 ml Route: IV; Rate: 1000 ml; Site: right antecubital; ll1 12:20 Follow up: IV Status: Completed infusion; IV Intake: 1000ml vg1 11:19 Drug: Tylenol 1000 mg Route: PO; ll1 12:19 Follow up: Response: No adverse reaction vg1 Disposition: 05/24/20 11:18 Discharged to Home. Impression: Coronavirus infection, unspecified. - Condition is Stable. - Discharge Instructions: COVID-19. - Prescriptions for Albuterol Sulfate 90 mcg/actuation - inhale 1-2 puff by INHALATION route every 4-6 hours; 1 Inhaler. - Medication Reconciliation Form, Thank You Letter, Antibiotic Education, Prescription Opioid Use form. - Follow up: Private Physician; When: As needed; Reason: Recheck today's complaints, Re-evaluation by your physician. - Problem is new. - Symptoms have improved. Signatures: Dispatcher [employer] EDMS Chinyere Pendleton RN RN iw Nieto, Roman, MD MD rn Garcia, Victoria, RN RN vg1 Samira Neville RN RN ll1 Corrections: (The following items were deleted from the chart) 10:03 10:01 Reports cough for 5 days, now having mild sob and chest pain, multiple family rn members COVID +. . rn 12:24 11:18 05/24/2020 11:18 Discharged to Home. Impression: Coronavirus infection, vg1 unspecified. Condition is Stable. Forms are Medication Reconciliation Form, Thank You Letter, Antibiotic Education, Prescription Opioid Use. Follow up: Private Physician; When: As needed; Reason: Recheck today's complaints, Re-evaluation by your physician. Problem is new. Symptoms have improved. rn
[2020-05-24 11:52] LABS: Blood Morphology Comment NOT SEEN (NOT SEEN); Platelet Estimate DECR; White Blood Cell Scan OK (OK)
[2020-05-24 12:30] VITALS: TEMP 100.1
[2020-05-24 12:32] VITALS: BP 111/51; O2SAT 98
== END 2020-05-24 12:24 | disposition home or self-care (01) ==
LOC: ER 09:08
DX: U07.1 COVID-19 (principal); I10 Essential (primary) hypertension; E11.9 Type 2 diabetes mellitus without complications; E78.5 Hyperlipidemia, unspecified; Z85.038 Personal history of other malignant neoplasm of large intestine
CPT/HCPCS: 85025; 80048; 36415; 84145; 87804 ×2; 71275; 71045; 96360; 99284; U0002; Q9967; J7030

== ENCOUNTER 2022-05-27 00:01 | Emergency (ER) | payer BC, SELFPAY ==
--- OUTSIDE RECORDS SUMMARY | 2022-05-27 00:06 | XMS REPORT | Continuity of Care Document ---
:1960 Author Organization [facility] t Address [address] [place] [address] Dr. Palmer. [address] [place] [address] Care Team Providers Name Role Phone Chet Herrera MD Primary Care Physician Armando WATT, Cristina Marti Attending Clinician [phone] Marianela Gold MD Attending Clinician Deni WATT, Sadie Pizarro Attending Clinician [phone] Mark Anthony KAY, Derian Attending Clinician Unavailable Monore SPENCER, Dre Costa Attending Clinician Duy Blair MD Attending Clinician [phone] Yonathan Hameed MD Attending Clinician Lab, Adc Fam Pob I Attending Clinician Unavailable Sammie Polanco Attending Clinician Reanna Forde Attending Clinician REANNA CASEY Attending Clinician Unavailable Ernesto Kwong DO Attending Clinician [phone] Selena Chacon MD Attending Clinician [phone] Nahid Mcclain MD Attending Clinician [phone] MD SELENA CHACON Attending Clinician Unavailable MD DUY BLAIR Attending Clinician Unavailable Jaime Street DO Attending Clinician Kitty SPENCER, Yulisa Attending Clinician DUY BLAIR Admitting Clinician Unavailable MD DUY BLAIR Admitting Clinician Unavailable SELENA CHACON Admitting Clinician Unavailable MD SELENA CHACON Admitting Clinician Unavailable Payers Payer Name Policy Type Policy Number Effective Date Expiration Date S ource Problems Condition Condition Condition Status Onset Resolution Last Treating Co mments Source Name Details Category Date Date Treatment Clinician Date Fever, Fever, Disease Active Methodi unspecifie unspecifie 01-23 st d fever d fever 00:00: Hospita cause cause 00 l Disorder Disorder Disease Active [facility] di of liver of liver 01-23 00:00: Hospita 00 l Acute Acute Disease Active Methodi upper GI upper GI [address] st bleeding bleeding 00:00: Hospit a 00 l Hematemesi Hematemesi Disease Active Overview : Methodi s with s with 3-[address] nausea nausea 00:00: g of this Hospita 00 note l might be different from the original. Added automatic ally from request for surgery [id number] Portal Portal Disease Active Overview: Method i hypertensi hypertensi 3-[address] on on 00:00: g of this Hospita 00 note l might be different from the original. Added automatic ally from request for surgery [id number] Anemia Anemia Disease Active Overview: Method i 3-[address] 00:00: g of this Hospita 00 note l might be different from the original. 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 st Hospita l Calculus Calculus Disease Active Metho di of of galladd gallbladde Ho spita r without r without l cholecysti cholecysti tis tis without without obstructio obstructio n n Allergies, Adverse Reactions, Alerts Allergy Allergy Status Severity Reaction(s) Onset Inactive Treating Comm ents Source Name Type Date Date Clinician NO KNOWN Drug Active Univers ALLERGIE Class ity of S [facility] Family History Family Member Diagnosis Comments Start Date Stop Date Source Natural father [facility] mother Cancer [facility] Natural mother Hepatitis [facility] Natural mother Liver disease [facility] Paternal aunt Heart disease [facility] Natural sister Diabetes [facility] Natural sister Heart disease [facility] sister Stroke [facility] Cancer [facility] Social History Social Habit Start Date Stop Date Quantity Comments Source History SDOH [facility] Frequency Hospita l History SDOH [facility] St[facility] Drinks History SDOH [facility] Exposure to Not sure [facility] [address] (event) Tobacco use and 2022-01-23 2022-01-23 Smokeless tobacco [facility] exposure 00:00:00 00:00:00 non-user Hospital Alcohol intake 2022-01-23 2022-01-23 Ex-drinker [facility] 00:00:00 00:00:00 (finding) Hospital Alcohol Comment 2016-09-20 2016-09-20 occasional [facility] 00:00:00 00:00:00 Hospital Sex Assigned At [birth year] [facility] 00:00:00 00:00:00 Hospital Smoking Status Start Date Stop Date Source Unknown if ever smoked [facility] Never smoked tobacco [facility] Medications Ordered Filled Start Stop Current Ordering Indication Dosage Frequency Signature Comments Components Source Medication Medication Date Date Medication? Clinician (SIG) Name Name ezetimibe Yes 10mg QD Take 1 Method i (ZETIA) 10 9-21 tablet (10 st mg tablet 19:52: mg total) Hos [place] 40 by mouth l daily. azaTHIOprin Yes 50mg Q.5D Take 1 Meth cody e (IMURAN) 9-21 tablet (50 st 50 mg 19:52: mg total) Hospita tablet 40 by mouth 2 l (two) times a day. cholecalcif Yes 1250ug Q14D Take 1,250 Methodi katia, 9-[address] vitamin D3, 19:52: mouth Hospi ta 1,250 mcg 40 every 14 l (50,000 (fourteen) unit) wafer days. pantoprazol Yes 40mg QD Take 1 Meth cody e 9-21 tablet (40 st (PROTONIX) 19:52: mg total) Ho spita 40 MG EC 40 by mouth l tablet daily. predniSONE Yes 10mg Q2D Take 1 Metho di (DELTASONE) 9-21 tablet (10 st 10 mg 19:52: mg total) Hospita tablet 40 by mouth l every other day. semaglutide Yes .25mg Q7D Inject Met hodi (Ozempic) 02-[address] 0.25 19:52: under the Hospita mg/dose (2 40 skin once l mg/1.5 mL) a week. On subcutanesundays s pen insulin Yes 18U QD Inject Methodi GLARGINE 02-15 18-20 st (Toujeo Max 19:52: Units Hospi ta U-300 40 under the l SoloStar) skin 300 unit/mL daily. Use (3 mL) per insulin pen sliding subcutaneou scale s pen ciprofloxac 2021- No 500mg Q.5D Take 1 Me thodi in (Cipro) 01-[address] 500 MG 00:00: 04:59 (500 mg Hospita tablet 00 :00 total) by l mouth 2 (two) times a day for 7 days. rosuvastati 2021- No 10mg QD Take 10 mg Methodi n (CRESTOR) 01-[address] 10 mg 15:37: 00:00 daily. Hospita tablet 35 :00 l busPIRone 2021- No 15mg Q.[id number] Take 15 mg Methodi (BUSPAR) 15 01-23 [id number] by mouth 3 st MG tablet 15:36: 00:00 3D (three) Hosp curry 54 :00 times a l day. azaTHIOprin 2020- No 50mg Q.5W Take 1 Met hodi e (IMURAN) 3-25 04-25 tablet (50 st 50 mg 00:00: 04:59 mg total) Hospit a tablet 00 :00 by mouth 2 l (two) times a week for 30 days. Sunday and only predniSONE No 10mg QD Take 1 Meth cody (DELTASONE) 08-1420 tablet (10 s t 10 mg 00:00: 04:59 mg total) Hospit a tablet 00 :00 by mouth l daily for 30 days. rosuvastati Yes 10mg QD Take 10 mg Methodi n (CRESTOR) 08-[address] 10 mg 18:16: daily. Hospita tablet 02 l busPIRone Yes 15mg Q.[id number] Take 15 mg Methodi (BUSPAR) 15 08-13 [id number] by mouth 3 st MG tablet 18:16: 3D (three) Hospi ta 02 times a l day. cholecalcif [id number] Q7D Take 1 M ethodi katia, 08-[address] vitamin D3, 00:00: 04:59 (50,000 Ho spita 1,250 mcg 00 :00 Units l (50,000 total) by unit) mouth once capsule a week for 30 days. Usually takes on sunday azaTHIOprin 100mg QD Take 1 Me thodi e (IMURAN) 08-[address] 100 mg 00:00: 04:59 (100 mg Hospita tablet 00 :00 total) by l mouth every morning for 30 days. Except Sunday or pantoprazol No 40mg QD Take 1 Met hodi e 08-13 tablet (40 st (PROTONIX) 00:00: 04:59 mg total) H ospita 40 MG EC 00 :00 by mouth l tablet daily for 30 days. linaGLIPtin 5mg QD Take 1 Met hodi (Tradjenta) 08-13 tablet (5 st 5 mg tablet 00:00: 04:59 mg total) Hospita 00 :00 by mouth l daily for 30 days. pantoprazol 2020- No 40mg QD Take 40 mg Methodi e 07-[address] (PROTONIX) 14:48: 00:00 daily. Hosp curry 40 MG EC 56 :00 l tablet pantoprazol No 40mg Q.5D Take 1 Met hodi e 07-05 tablet (40 st (PROTONIX) 00:00: 05:59 mg total) H ospita 40 MG EC 00 :00 by mouth 2 l tablet (two) times a day for 30 days. azaTHIOprin No 50mg Q.5D Take 1 Met hodi e (IMURAN) 07-05 tablet (50 st 50 mg 00:00: 05:59 mg total) Hospit a tablet 00 :00 by mouth 2 l (two) times a day for 30 days. irbesartan Yes 150mg QD Take 150 Me thodi (AVAPRO) 4-[address] 150 MG 00:00: mouth Hospita tablet 00 every l morning. irbesartan Yes 75mg QD Take 1 Metho di (AVAPRO) 75 4-10 tablet (75 st MG tablet 00:00: mg total) Hos [place] 00 by mouth l every morning. cholecalcif 2020- No [id number] Q7D Take Met ehsani katia, 08-09 50,000 st vitamin D3, 00:00: 00:00 Units by H ospita 50,000 unit 00 :00 mouth once l capsule a week. Usually takes on sunday metFORMIN Yes 1000mg Q.5D Take 1,000 Methodi (GLUCOPHAGE 3-[address] ) 1,000 mg 00:00: mouth 2 Hosp curry tablet 00 (two) l times a day with meals. metFORMIN Yes 750mg Q.5D Take 1 Metho di XR 3-[address] (GLUCOPHAGE 00:00: (750 mg Hos [place] -XR) 750 mg 00 total) by l 24 hr mouth 2 tablet (two) times a day with meals. Vital Signs Vital Name Observation Time Observation Value Comments Source Systolic blood 2022-01-26 13:18:27 146 mm[Hg] Method ist Hospital pressure Diastolic blood 2022-01-26 13:18:27 65 mm[Hg] [facility] Hospital pressure Heart rate 2022-01-26 13:18:27 75 /min [facility] Body temperature 2022-01-26 13:18:27 35.5 [facility] Respiratory rate 2022-01-26 13:18:27 18 /min [facility] Oxygen saturation in 2022-01-26 13:18:27 99 /min [facility] Arterial blood by Pulse oximetry Body weight 2022-01-26 09:15:05 81.738 kg [facility] BMI 2022-01-26 09:15:05 35.19 kg/m2 [facility] Body height 2022-01-25 14:00:00 152.4 cm [facility] Systolic blood 2020-08-13 12:25:37 126 mm[Hg] [facility] pressure Diastolic blood 2020-08-13 12:25:37 59 mm[Hg] [facility] pressure Heart rate 2020-08-13 12:25:37 89 /min [facility] Body temperature 2020-08-13 12:25:37 36 [facility] Respiratory rate 2020-08-13 12:25:37 16 /min [facility] Oxygen saturation in 2020-08-13 12:25:37 96 /min [facility] Arterial blood by Pulse oximetry Body weight 2020-08-13 10:44:12 79.289 kg [facility] BMI 2020-08-13 10:44:12 34.14 kg/m2 [facility] Body height 2020-08-10 10:46:00 152.4 cm [facility] Procedures Procedure Date / Time Performing Source Performed Clinician POC GLUCOSE 2022-01-26 Duy Blair 17:48:00 [facility] POC GLUCOSE 2022-01-26 Duy Blair 13:21:00 [facility] CBC WITH PLATELET AND DIFFERENTIAL 2022-01-26 Mercy Blair 10:42:00 [facility] PROTHROMBIN TIME WITH INR 2022-01-26 Duy Blair ist 10:42:00 [facility] BASIC METABOLIC PANEL 2022-01-26 Duy Blair 10:42:00 [facility] HEPATIC FUNCTION PANEL 2022-01-26 Duy Blair 10:42:00 [facility] PHOSPHORUS LEVEL 2022-01-26 Dinakar, Duy [facility] 10:42:00 [facility] MAGNESIUM LEVEL 2022-01-26 Dinakar, Duy [facility] 10:42:00 [facility] ESTIMATED GFR 2022-01-26 Dinakar, Duy [facility] 10:42:00 [facility] SMEAR REVIEW 2022-01-26 Dinakar, Duy [facility] 10:42:00 [facility] POC GLUCOSE 2022-01-26 Dinakar, Duy [facility] 02:17:00 [facility] POC GLUCOSE 2022-01-25 Dinakar, Duy [facility] 23:02:00 [facility] POC GLUCOSE 2022-01-25 Dinakar, Duy [facility] 17:31:00 [facility] POC GLUCOSE 2022-01-25 Dinakar, Duy [facility] 13:16:00 [facility] CBC WITH PLATELET AND DIFFERENTIAL 2022-01-25 Dinakar, Mercy harris [facility] 10:41:00 [facility] PROTHROMBIN TIME WITH INR 2022-01-25 Dinakar, Duy Method ist 10:41:00 [facility] BASIC METABOLIC PANEL 2022-01-25 Dinakar, Duy [facility] 10:41:00 [facility] HEPATIC FUNCTION PANEL 2022-01-25 Dinakar, Duy [facility] 10:41:00 [facility] PHOSPHORUS LEVEL 2022-01-25 Dinakar, Duy [facility] 10:41:00 [facility] MAGNESIUM LEVEL 2022-01-25 Dinakar, Duy [facility] 10:41:00 [facility] ESTIMATED GFR 2022-01-25 Dinakar, Duy [facility] 10:41:00 [facility] SMEAR REVIEW 2022-01-25 Dinakar, Duy [facility] 10:41:00 [facility] POC GLUCOSE 2022-01-25 Dinakar, Duy [facility] 02:15:00 [facility] POC GLUCOSE 2022-01-24 Dinakar, Duy [facility] 22:52:00 [facility] NM HEPATOBILIARY 2022-01-24 Dinakar, Duy Mormon 20:11:00 [facility] POC GLUCOSE 2022-01-24 Dinakar, Duy Mormon 17:54:00 [facility] ECG 12-LEAD 2022-01-24 Dre Childress 14:50:54 Hospital POC GLUCOSE 2022-01-24 Jamisonakar, Duy Brown 13:23:00 [facility] CBC WITH PLATELET AND DIFFERENTIAL 2022-01-24 Dinakar, Mercy Huntist 11:08:00 [facility] PROTHROMBIN TIME WITH INR 2022-01-24 Dinakar, Duy Hunt ist 11:08:00 [facility] BASIC METABOLIC PANEL 2022-01-24 Dinakar, Duy Huntist 11:08:00 [facility] HEPATIC FUNCTION PANEL 2022-01-24 Dinakar, Duy Huntist 11:08:00 [facility] PHOSPHORUS LEVEL 2022-01-24 Dinakar, Duy Huntist 11:08:00 [facility] MAGNESIUM LEVEL 2022-01-24 Dinakar, Duy Huntist 11:08:00 [facility] HEMOGLOBIN A1C 2022-01-24 Jamisonakar, Duy Huntist 11:08:00 [facility] ZZCOD-19 SEROLOGY PATIENT 2022-01-24 Whitney, Duy colin SURVEILLANCE 11:08:00 [facility] ESTIMATED GFR 2022-01-24 Dinakar, Duy Huntist 11:08:00 [facility] SMEAR REVIEW 2022-01-24 Jamisonakar, Duy Brown 11:08:00 [facility] ZZCOVID-19 ANTI-SPIKE IGG ANTIBODY 2022-01-24 Dinakar, Mercy Brown TITER 11:08:00 [facility] LACTIC ACID LEVEL, SEPSIS - NOW 2022-01-23 Dre Childress AND REPEAT 2X EVERY 3 HOURS 20:18:00 Hosp ital AMMONIA LEVEL 2022-01-23 Dre Childress 20:18:00 Hospital US GALLBLADDER 2022-01-23 Dre Childress 19:29:08 Hospital URINE CULTURE 2022-01-23 Dre Childress 18:26:[address] RENAL STONE PROTOCOL 2022-01-23 Dre Childress Metho dist 18:07:20 Hospital URINALYSIS SCREEN AND MICROSCOPY, 2022-01-23 Dre Childress WITH REFLEX TO CULTURE 17:22:00 Hospital LACTIC ACID LEVEL, SEPSIS - NOW 2022-01-23 Dre Childress AND REPEAT 2X EVERY 3 HOURS 17:17:00 Hosp ital COMPREHENSIVE METABOLIC PANEL 2022-01-23 Dre Childress 17:17:00 Hospital TROPONIN T 2022-01-23 Dre Childress 17:17:00 Hospital CBC WITH PLATELET AND DIFFERENTIAL 2022-01-23 Dre Childress 17:17:00 Hospital PROTHROMBIN TIME WITH INR 2022-01-23 Dre Childress hodist 17:17:00 Hospital PARTIAL THROMBOPLASTIN TIME (PTT) 2022-01-23 Dre Childress 17:17:00 Hospital LIPASE LEVEL 2022-01-23 Dre Childress 17:17:00 Hospital TYPE AND SCREEN 2022-01-23 Dre Childress 17:17:00 Hospital AMMONIA LEVEL 2022-01-23 Dre Childress 17:17:00 Hospital ESTIMATED GFR 2022-01-23 Dre Childress 17:17:00 Hospital B NATRIURETIC PEPTIDE 2022-01-[address] 17:17:00 Hospital SMEAR REVIEW 2022-01-23 Dre Childress 17:17:00 Hospital ANTIBODY IDENTIFICATION 2022-01-23 Dre Childress Metho dist 17:17:00 Hospital BLOOD CULTURE, AEROBIC & ANAEROBIC 2022-01-23 Dre Chidlress 17:17:00 Hospital ESTIMATED GFR 2022-01-23 Dre Childress 17:02:00 Hospital XR CHEST 1 VW PORTABLE 2022-01-23 Dre Childress ist 16:16:29 Hospital US ABDOMEN COMPLETE 2021-06-29 Yonathan Hameed 18:40:00 Hospital US ABDOMINAL DOPPLER 2021-06-29 Yonathan Hameed 17:04:41 Hospital US ABDOMEN COMPLETE 2021-03-10 Yonathan Hameed 17:55:00 Hospital US ABDOMINAL DOPPLER 2021-03-10 Yonathan Hameed 17:54:49 [facility] US DUPLEX VENOUS LOWER EXTREMITY 2020-08-31 Yonathan Hameed RIGHT 20:35:46 Hospital POC GLUCOSE 2020-08-13 Duy Blair [facility] 17:50:00 [facility] POC GLUCOSE 2020-08-13 Stephanie Chacon 13:02:00 [facility] HC COMPLETE BLD COUNT W/AUTO DIFF 2020-08-13 Stephanie Chacon 09:30:00 [facility] PROTHROMBIN TIME WITH INR 2020-08-13 Marilee Chacon ist 09:30:00 [facility] BASIC METABOLIC PANEL 2020-08-13 Stephanie Chacon 09:00:00 [facility] HEPATIC FUNCTION PANEL 2020-08-13 Stephanie Chacon 09:00:00 [facility] MAGNESIUM LEVEL 2020-08-13 Stephanie Chacon 09:00:00 [facility] PHOSPHORUS LEVEL 2020-08-13 Stephanie Chacon 09:00:00 [facility] ESTIMATED GFR 2020-08-13 Stephanie Chacon 09:00:00 [facility] POC GLUCOSE 2020-08-13 Stephanie Chacon 01:40:00 [facility] POC GLUCOSE 2020-08-12 Stephanie Chacon 22:07:00 [facility] HEMOGLOBIN & HEMATOCRIT 2020-08-12 Nicki Chacon t 19:18:00 [facility] POC GLUCOSE 2020-08-12 Stephanie Chacon 19:06:00 [facility] GASTROINTESTINAL PANEL 2020-08-12 Sara Angel Method ist 19:00:00 [facility] POC GLUCOSE 2020-08-12 Stephanie Chacon 16:52:00 [facility] POC GLUCOSE 2020-08-12 Stephanie Chacon 13:31:00 [facility] HC COMPLETE BLD COUNT W/AUTO DIFF 2020-08-12 Stephanie Chacon 10:30:00 [facility] BASIC METABOLIC PANEL 2020-08-12 Stephanie Chacon 10:30:00 [facility] HEPATIC FUNCTION PANEL 2020-08-12 Stephanie Chacon 10:30:00 [facility] MAGNESIUM LEVEL 2020-08-12 Stephanie Chacon 10:30:00 [facility] PHOSPHORUS LEVEL 2020-08-12 Stephanie Chacon 10:30:00 [facility] PROTHROMBIN TIME WITH INR 2020-08-12 Marilee Chacon ist 10:30:00 [facility] ESTIMATED GFR 2020-08-12 Stephanie Chacon 10:30:00 [facility] POC GLUCOSE 2020-08-12 Stephanie Chacon 05:43:00 [facility] POC GLUCOSE 2020-08-11 Stephanie Chacon 22:15:00 [facility] POC GLUCOSE 2020-08-11 Stephanie Chacon 19:46:00 [facility] ESOPHAGOGASTRODUODENOSCOPY (EGD) 2020-08-11 Yonathan Hameed 19:05:00 [facility] POC GLUCOSE 2020-08-11 Stephanie Chacon 18:18:00 [facility] POC GLUCOSE 2020-08-11 Stephanie Chacon 17:17:00 [facility] URINE CULTURE 2020-08-11 Stephanie Chacon 14:33:00 [facility] POC GLUCOSE 2020-08-11 Stephanie hCacon 13:29:00 [facility] HC COMPLETE BLD COUNT W/AUTO DIFF 2020-08-11 Stephanie Chacon 10:15:00 [facility] BASIC METABOLIC PANEL 2020-08-11 Stephanie Chacon 10:15:00 [facility] HEPATIC FUNCTION PANEL 2020-08-11 Stephanie Chacon 10:15:00 [facility] MAGNESIUM LEVEL 2020-08-11 Stephanie Chacon 10:15:00 [facility] PHOSPHORUS LEVEL 2020-08-11 Stephanie Chacon 10:15:00 [facility] PROTHROMBIN TIME WITH INR 2020-08-11 Marilee Chacon ist 10:15:00 [facility] HEMOGLOBIN & HEMATOCRIT 2020-08-11 Nicki Vang 10:15:00 [facility] ESTIMATED GFR 2020-08-11 Stephanie Chacon 10:15:00 [facility] URINALYSIS SCREEN AND MICROSCOPY, 2020-08-11 Stephanie Chacon WITH REFLEX TO CULTURE 10:00:00 [facility] POC GLUCOSE 2020-08-11 Stephanie Chacon 09:01:00 [facility] HEMOGLOBIN & HEMATOCRIT 2020-08-11 Nicki Vang t 04:40:00 [facility] POC GLUCOSE 2020-08-11 Stephanie Chacon 04:36:00 [facility] POC GLUCOSE 2020-08-11 Stephanie Chacon 00:47:00 [facility] POC GLUCOSE 2020-08-10 Stephanie Chacon 22:18:00 [facility] HEMOGLOBIN & HEMATOCRIT 2020-08-10 Nicki Vang t 21:45:00 [facility] POC GLUCOSE 2020-08-10 Stephanie Chacon 19:31:00 [facility] XR ABDOMEN 1 VW PORTABLE 2020-08-10 KiSara velazco odist 18:50:00 [facility] POC GLUCOSE 2020-08-10 Stephanie Chacon 17:20:00 [facility] [id number] TOTAL 2020-08-10 Stephanie Chacon 15:05:00 [facility] FIBRINOGEN 2020-08-10 Stephanie Chacon 15:05:00 [facility] POC GLUCOSE 2020-08-10 Duy Blair 13:18:00 [facility] TROPONIN 2020-08-10 Ernesto Kwong 09:42:00 [facility] BASIC METABOLIC PANEL 2020-08-10 Ernesto Kwong t 09:42:00 [facility] HC COMPLETE BLD COUNT W/AUTO DIFF 2020-08-10 Randolph Kwong 09:42:00 [facility] ESTIMATED GFR 2020-08-10 Ernesto Kwong 09:42:00 [facility] POC GLUCOSE 2020-08-10 Duy Blair 09:36:00 [facility] CTA ABD/PEL FOR BLEEDING 2020-08-10 Ernesto Kwongo dist 07:28:51 [facility] LACTIC ACID LEVEL, SEPSIS - NOW 2020-08-10 Lance Kwong AND REPEAT 2X EVERY 3 HOURS 07:02:00 [facility] ital POC GLUCOSE 2020-08-10 Ernesto Kwong 06:10:00 [facility] COVID-19 QUALITATIVE RT-PCR 2020-08-10 Ernesto Kwong Me [facility]ist 04:25:00 [facility] COMPREHENSIVE METABOLIC PANEL 2020-08-10 Ernesto Kwong 04:25:00 [facility] LACTIC ACID LEVEL, SEPSIS - NOW 2020-08-10 Lance Kwong AND REPEAT 2X EVERY 3 HOURS 04:25:00 [facility] ital LIPASE LEVEL 2020-08-10 Ernesto Kwong 04:25:00 [facility] HC COMPLETE BLD COUNT W/AUTO DIFF 2020-08-10 Randolph Kwong 04:25:00 [facility] PROTHROMBIN TIME WITH INR 2020-08-10 Ernesto Kwong Meth odist 04:25:00 [facility] PARTIAL THROMBOPLASTIN TIME (PTT) 2020-08-10 Randolph Kwong 04:25:00 [facility] TROPONIN 2020-08-10 Ernesto Kwong 04:25:00 [facility] PREPARE RBC 2020-08-10 Stephanie Chacon 04:25:00 [facility] ESTIMATED GFR 2020-08-10 Ernesto Kwong 04:25:00 [facility] ANTIBODY IDENTIFICATION 2020-08-10 Ernesto Kwong ist 04:25:00 [facility] ECG ED PRELIMINARY INTERPRETATION 2020-08-10 Randolph Kwong 04:05:34 [facility] ECG 12-LEAD 2020-08-10 Ernesto Kwong 03:50:59 [facility] CBC WITH PLATELET AND DIFFERENTIAL 2020-07-05 Marco Angel [facility] 09:50:00 [facility] BASIC METABOLIC PANEL 2020-07-05 Stephanie Chacon 09:50:00 [facility] HEPATIC FUNCTION PANEL 2020-07-05 Stephanie Chacon 09:50:00 [facility] PROTHROMBIN TIME WITH INR 2020-07-05 Marilee Chacon ist 09:50:00 [facility] ALPHA FETOPROTEIN 2020-07-05 Alia Baumann 09:50:00 [facility] ESTIMATED GFR 2020-07-05 Pastor Alia Mormon 09:50:00 [facility] CBC WITH PLATELET AND DIFFERENTIAL 2020-07-04 Marco Angel bertrand [facility] 09:00:00 Hospital BASIC METABOLIC PANEL 2020-07-04 Stephanie Chacon 09:00:00 [facility] HEPATIC FUNCTION PANEL 2020-07-04 Stephanie Chacon 09:00:00 [facility] PROTHROMBIN TIME WITH INR 2020-07-04 Marilee Chacon ist 09:00:00 [facility] ESTIMATED GFR 2020-07-04 Stephanie Chacon 09:00:00 [facility] HEMOGLOBIN & HEMATOCRIT 2020-07-04 Nicki Chacon 00:50:00 [facility] POC GLUCOSE 2020-07-03 Stephanie Chacon 20:24:00 [facility] [id number] TOTAL 2020-07-03 Stephanie Chacon 16:58:00 [facility] HEMOGLOBIN & HEMATOCRIT 2020-07-03 Nicki Chacon 16:58:00 [facility] HC COMPLETE BLD COUNT W/AUTO DIFF 2020-07-03 Tal Angel 12:00:00 [facility] POC GLUCOSE 2020-07-03 Stephanie Chacon 10:33:00 [facility] POC GLUCOSE 2020-07-03 Stephanie Chacon 06:51:00 [facility] XR CHEST 1 VW PORTABLE 2020-07-03 Stephanie Chacon 03:07:05 [facility] POC GLUCOSE 2020-07-03 Stephanie Chacon 02:55:00 [facility] LACTIC ACID LEVEL, SEPSIS - NOW 2020-07-[address] AND REPEAT 2X EVERY 3 HOURS 02:15:00 Hosp ital US ABDOMEN COMPLETE 2020-07-03 Sara Angel 01:56:00 Hospital US ABDOMINAL DOPPLER 2020-07-03 Sara Angel t 01:53:00 Hospital XR ABDOMEN 1 VW PORTABLE 2020-07-02 StanleySara Major colin 22:54:47 Hospital LACTIC ACID LEVEL, SEPSIS - NOW 2020-07-[address] AND REPEAT 2X EVERY 3 HOURS 21:06:00 Hosp ital ECG 12-LEAD 2020-07-[address] 19:14:27 Hospital COVID-19 QUALITATIVE RT-PCR 2020-07-[address] 19:04:00 Hospital HC COMPLETE BLD COUNT W/AUTO DIFF 2020-07-[address] 18:43:00 Hospital PROTHROMBIN TIME WITH INR 2020-07-[address] ist 18:43:00 Hospital PARTIAL THROMBOPLASTIN TIME (PTT) 2020-07-[address] 18:43:00 Hospital TYPE AND SCREEN 2020-07-[address] 18:43:00 Hospital ANTIBODY IDENTIFICATION 2020-07-[address] 18:43:00 Hospital E ANTIGEN PATIENT TYPING 2020-07-[address] 18:43:00 [facility] COMPREHENSIVE METABOLIC PANEL 2020-07-[address] [facility] LACTIC ACID LEVEL, SEPSIS - NOW 2020-07-[address] AND REPEAT 2X EVERY 3 HOURS 18:06:00 Hosp ital ESTIMATED GFR 2020-07-[address] 18:06:00 Hospital ECG ED PRELIMINARY INTERPRETATION 2020-07-[address] 17:57:30 Hospital Plan of Care Planned Activity Planned Date Details Comments Source Future Scheduled 2022-05-20 COVID-19 VACCINE (#1) [facility] Test 11:22:57 [code = COVID-19 VACCINE (#1)] Future Scheduled 2022-05-20 Pneumococcal Vaccine: [facility] Test 11:22:57 Pediatrics (0 to 5 Years) and At-Risk Patients (6 to 64 Years) (1 - PCV) [code = Pneumococcal Vaccine: Pediatrics (0 to 5 Years) and At-Risk Patients (6 to 64 Years) (1 - PCV)] Future Scheduled 2022-05-20 Hepatitis C screening [facility] Test 11:22:57 (procedure) [code = 145307018] Future Scheduled 2022-05-20 SHINGLES VACCINES (1 Met [facility] Test 11:22:57 of 2) [code = SHINGLES VACCINES (1 of 2)] Future Scheduled 2022-05-20 Screening for [facility] Test 11:22:57 malignant neoplasm of cervix (procedure) [code = 968346951] Future Scheduled 2022-05-20 BREAST CANCER [facility] Test 11:22:57 SCREENING [code = BREAST CANCER SCREENING] Future Scheduled 2022-05-20 COLONOSCOPY SCREENING [facility] Test 11:22:57 [code = COLONOSCOPY SCREENING] Future Scheduled 2022-05-20 HEPATITIS B VACCINES Met [facility] Test 11:22:57 (1 of 3 - Risk 3-dose series) [code = HEPATITIS B VACCINES (1 of 3 - Risk 3-dose series)] Future Scheduled 2022-05-20 INFLUENZA VACCINE Method [facility] Test 11:22:57 [code = INFLUENZA VACCINE] Future Scheduled 2021-06-21 COVID-19 VACCINE (1) Met [facility] Test 10:09:39 [code = COVID-19 VACCINE (1)] Future Scheduled 2021-06-21 DIABETES: RETINAL EYE [facility] Test 10:09:39 EXAM [code = DIABETES: RETINAL EYE EXAM] Future Scheduled 2021-06-21 DIABETIC FOOT EXAM [facility] Test 10:09:39 [code = DIABETIC FOOT EXAM] Future Scheduled 2021-06-21 Hepatitis C screening [facility] Test 10:09:39 (procedure) [code = 387549776] Future Scheduled 2021-06-21 Screening for [facility] Test 10:09:39 malignant neoplasm of cervix (procedure) [code = 454260899] Future Scheduled 2021-06-21 BREAST CANCER [facility] Test 10:09:39 SCREENING [code = BREAST CANCER SCREENING] Future Scheduled 2021-06-21 COLONOSCOPY SCREENING [facility] Test 10:09:39 [code = COLONOSCOPY SCREENING] Future Scheduled 2021-06-21 SHINGLES VACCINES (#1) [facility] Test 10:09:39 [code = SHINGLES VACCINES (#1)] Future Scheduled 2021-06-21 INFLUENZA VACCINE [facility] Test 10:09:39 [code = INFLUENZA VACCINE] Encounters Start End Encounter Admission Attending Care Care Encounter Source Date/Time Date/Time Type Type Clinicians Facility Department ID 2022-02-22 2022-02-22 Telephone Armando 1.2.840.1 [id number] Methodi 00:00:00 00:00:[address] Catterina 3.430.2.7 Hosp curry .3.318598 l .8 2022-02-15 2022-02-15 Transplant Marianela GoldPradeep 1.2.840.1 [id number] Methodi 15:15:00 15:30:00 Telemedici Sadie Cheemaareli 02320.1.[address] 3.430.2.7 Hospit a .3.843565 l .8 2022-02-15 2022-02-15 [facility] [id number] 00:00:00 00:00:00 MARIANELA [address] 2022-01-31 2022-01-31 Documentat Deni, 1.2.840.1 [id number] Methodi 00:00:00 00:00:00 ion Stephanieave 97458.1.[address] Guinares 3.430.2.7 Hospi ta .3.660566 l .8 2022-01-27 2022-01-[address] [facility], 1.2.840.1 [id number] 2100 [id number] Methodi 00:00:00 00:00:[address] 3.430.2.7 Hospit a .3.591049 l .8 2022-01-23 2022-01-26 [facility] Dre Childress 1.2.840.1 [id number] Methodi 11:01:00 16:32:00 Encounter Duy Blair 17791.1.[address] 3.430.2.7 Hospit a .3.886050 l .8 2022-01-23 2022-01-26 Inpatient DINAKAR, [facility] [id number] [address] 00:00:00 00:00:00 [facility] [address] 2022-01-23 2022-01-23 Travel 1.2.840.1 1.2.335.260 [id number] [id number] Methodi 00:00:00 00:00:[address] 3.430.2.7 0.2.7.3.698 Ho spita .3.423947 084.8 l .8 2021-06-29 2021-06-29 [facility], 1.2.840.1 [id number] Methodi 08:58:00 23:59:00 Encounter Yonathan JiangPradeep 40353.1.[address] 3.430.2.7 Hospit a .3.897341 l .8 2021-06-29 2021-06-29 [facility], 1.2.840.1 [id number] Methodi 08:57:45 08:57:45 Encounter Yonathan JiangPradeep 22507.1.[address] 3.430.2.7 Hospit a .3.792308 l .8 2021-06-29 2021-06-[address] [facility] [id number] [address] [place] [address] 00:00:00 00:00:00 YONATHAN [address] 2021-06-29 2021-06-29 Outpatient [facility] [id number] [address] [place] [address] 00:00:00 00:00:00 YONATHAN [address] 2021-06-29 2021-06-29 Travel 1.2.840.1 1.2.940.039 [id number] [id number] Methodi 00:00:00 00:00:[address] 3.430.2.7 0.2.7.3.698 Ho spita .3.523737 084.8 l .8 2021-06-21 2021-06-21 Travel 1.2.840.1 1.2.247.829 9317 [id number] Methodi 00:00:00 00:00:[address] 3.430.2.7 0.2.7.3.698 Ho spita .3.004403 084.8 l .8 2021-06-21 2021-06-21 [facility] 1.[facility] [id number] Methodi 00:00:00 00:00:00 Orders Yonathan S. 48846.1.[address] 3.430.2.7 Hospit a .3.599956 l .8 2021-06-21 2021-06-21 Travel 1.2.840.1 1.2.029.811 4580 [id number] Methodi 00:00:00 00:00:[address] 3.430.2.7 0.2.7.3.698 Ho spita .3.881494 084.8 l .8 2021-06-21 2021-06-[facility]1 [id number] [id number] Methodi 00:00:00 00:00:00 Orders Yonathan S. 10667.1.[address] 3.430.2.7 Hospit a .3.898697 l .8 2021-03-10 2021-03-10 [facility], 1.2.840.1 [id number] Methodi 09:49:01 23:59:00 Encounter Yonathan S. 38520.1.[address] 3.430.2.7 Hospit a .3.092037 l .8 2021-03-10 2021-03-10 [facility], 1.2.840.1 [id number] 54 Methodi 09:48:50 09:48:50 Encounter Yonathan S. 49066.1.[address] 3.430.2.7 Hospit a .3.760794 l .8 2021-03-10 2021-03-10 Travel 1.2.840.1 1.2.155.794 9249 [id number] Methodi 00:00:00 00:00:[address] 3.430.2.7 0.2.7.3.698 Ho spita .3.148992 084.8 l .8 2021-03-01 2021-03-01 Travel 1.2.840.1 1.2.586.105 1772 [id number] Methodi 00:00:00 00:00:[address] 3.430.2.7 0.2.7.3.698 Ho spita .3.597607 084.8 l .8 2021-03-01 2021-03-01 Transcribe [facility], 1.2.840.1 [id number] [id number] Methodi 00:00:00 00:00:00 Orders Yonathan ApolinarPradeep 47539.1.[address] 3.430.2.7 Hospit a .3.992362 l .8 2020-09-22 2020-09-22 Laboratory Lab, Adc Fam Pob I [facility] 1.2. 840.114 [id number] Univers 07:56:56 08:16:56 [facility] 350.1.13.10 ity [facility] 4.2.7.2.686 Viktor as Professio [phone] [address] Office [address] [employer] 2020-09-22 2020-09-22 Outpatient R [facility] [id number] Univers 08:00:00 08:00:00 ity of [facility] 2020-08-31 2020-08-31 [facility].840[facility] [id number] Methodi 15:11:54 23:59:00 Encounter Yonathan JiangPradeep 55485.1.[address] 3.430.2.7 Hospit a .3.031063 l .8 2020-08-30 2020-08-30 Travel 1.2.840.1 1.2.861.878 4561 [id number] Methodi 00:00:00 00:00:[address] 3.430.2.7 0.2.7.3.698 Ho spita .3.484126 084.8 l .8 2020-08-30 2020-08-30 Transcribe Galati, 1.2.840.1 [id number] 041 [id number] Methodi 00:00:00 00:00:00 Orders Yonathan ApolinarPradeep 20233.1.[address] 3.430.2.7 Hospit a .3.315493 l .8 2020-08-30 2020-08-30 Transcribe [facility], 1.2.840.1 [id number] 091 [id number] Methodi 00:00:00 00:00:00 Orders Yonathan Sosa 03868.1.[address] 3.430.2.7 Hospit a .3.291148 l .8 2020-08-27 2020-08-27 Laboratory Lab, Adc Fam Pob I [facility] 1.2. 840.114 [id number] Univers 13:39:38 13:59:38 Only Reanna Casey [facility] 350.1.13.10 [facility] 4.2.7.2.686 Viktor as Professio [phone] [address] [employer] 2020-08-27 2020-08-27 Outpatient R JACINTO [facility] [id number] Univers 13:40:00 13:40:00 REANNA [facility] 2020-08-09 2020-08-13 [facility] Kwong Ernesto Mark 1.2.840. 1 [id number] Methodi 23:01:00 18:16:00 Encounter Duy Blair 39055.1.[address] Selena Chacon 3.430.2.7 Hospita .3.906398 l .8 2020-08-11 2020-08-11 Surgery Yoseph, 1.2.840.1 [id number] Methodi 14:00:00 15:00:[address] 3.430.2.7 Hospit a .3.667828 l .8 2020-08-11 2020-08-11 Anesthesia aSrahi 1.2.840.1 [id number] Methodi 14:04:00 14:48:00 Event Nahid 68965.1.[address] Manish 3.430.2.7 Hospit a .3.415515 l .8 2020-07-02 2020-07-[address] 1.2.840.1 [id number] Methodi 11:39:00 17:23:00 Encounter Moris Selena Bernabe 70830.1.[address] Yulisa Tang 3.430.2.7 Hos delonte .3.174309 l .8 2020-06-30 2020-06-30 Transcribe Galati, 1.2.840.1 [id number] 069 [id number] Methodi 00:00:00 00:00:00 Orders Yonathan Sosa 10992.1.[address] 3.430.2.7 Hospit a .3.187078 l .8 2020-06-29 2020-06-29 Transcribe Gal[facility], 1.2.840.1 [id number] 963 [id number] Methodi 00:00:00 00:00:00 Orders Yonathan Sosa 42818.1.[address] 3.430.2.7 Hospit a .3.721217 l .8 2020-04-15 2020-04-15 Outpatient GALATI, [facility] [id number] [address] 00:00:00 00:00:00 YONATHAN [address] 2019-12-12 2019-12-12 Outpatient GALATI, [facility] [id number] [address] 00:00:00 00:00:00 YONATHAN [address] Results Test Description Test Time Test Comments Results Result Comments Source POC glucose 2022-01-26 17:49:00 Test Item Value Reference Range Interpretation Comme nts POC glucose (test code = 334 mg/dL 65-99 H Ope rator Name: Grant Landin~Device 59569-3) ID: [id number]~ Chartable: [facility] Notified template cutter Interpretation (test code Abnormal = 87742-4) [facility] [id number] 22:25:40 Test Item Value Reference Range Interpretation Comments Ventricular rate (test code = 253) Atrial rate (test code = 255) NV interval (test code = 266) QRSD interval (test code = 260) QT interval (test code = 264) QTC interval (test code = 265) P axis 1 (test code = 267) QRS axis 1 (test code = 268) T wave axis (test code = 270) EKG impression (test Normal sinus code = 273) rhythm-Low voltage QRS-Prolonged QT-Abnormal ECG-In automated comparison with ECG of 09-AUG-2020 22:50,-Vent. rate has decreased BY 44 BPM- [facility] [id number] 19:39:00 Test Item Value Reference Range Interpretation Comments Antibody ID (test code = 57953-5) POS, Anti-E [facility] [id number] 18:36:06 Test Item Value Reference Range Interpretation Comments Urine culture Mixed brennan Specimen isolate (test <=10-3 col/cc InformationSp ecimen code = 24086-7) Source: Urin eSpecimen Site: Clean cat [facility] and [facility], with reflex to culture 2020-08-11 15:46:21 Test Item Value Reference Range Interpretation Comments Specimen site (test Clean catch code = 2856949) Color, UA (test code = Yellow 5778-6) Appearance, UA (test Clear code = 5767-9) Specific gravity, UA 1.001-1.035 (test code = 5811-5) pH, UA (test code = 5.0-8.5 5803-2) Protein, UA (test code Negative Negative = 44574-0) Glucose, UA (test code Negative Negative = 75649-5) Ketones, UA (test code Negative Negative = 2514-8) Bilirubin, UA (test Negative Negative code = 5770-3) Blood, UA (test code = Negative Negative 5794-3) Nitrite, UA (test code Negative Negative = 5802-4) Urobilinogen, UA (test <2.0 <2.0 code = 93066-3) Leukocyte esterase, UA Small Negative A (test code = 5799-2) Epithelial cells, UA See_Comment [Autom ated (test code = 5787-7) message ] The system which generated this result transmitted reference range : /HPF. The refer ence range was not u sed to interpret th is result as normal/abnormal . WBC, UA (test code = See_Comment H [Autom ated 5821-4) message] The sy stem which generated this result transmitted reference range : 0 - 4 /HPF. The reference range was not used to interpret this result as normal/abnormal . RBC, UA (test code = <1 See_Comment [Autom ated 31763-6) message] The sy stem which generated this result transmitted reference range : 0 - 5 /HPF. The reference range was not used to interpret this result as normal/abnormal . Bacteria, UA (test code Few None seen = 59295-9) Yeast, UA (test code = None seen 42055-2) Yeast with None seen pseudohyphae, UA (test code = 39162-3) Lab Interpretation Abnormal (test code = 62002-3) [facility] 12 [id number] 09:46:40 Test Item Value Reference Range Interpretation Comments Ventricular rate (test code = 253) Atrial rate (test code = 255) NV interval (test code = 266) QRSD interval (test code = 260) QT interval (test code = 264) QTC interval (test code = 265) P axis 1 (test code = 267) QRS axis 1 (test code = 268) T wave axis (test code = 270) EKG impression (test Sinus code = 273) tachycardia-Otherwise normal ECG-In automated comparison with ECG of 02-JUL-2020 13:14,-No significant change was found- Mormon VauakdpaAXXP-OnJ-7 (COVID-19) IgG+IgM Ab [Presence] in Serum or Plasma by [id number] 12:19:00 Test Item Value Reference Range Interpretation Comments SARS-CoV-2 (COVID-19) IgG+IgM Ab Positive [Presence] in Serum or Plasma by Immunoassay (test code = 97678-8) EUNICE VAUGHANSARS-CoV-2 (COVID-19) IgG Ab [Presence] in Serum or Plasma by [id number] 12:19:00 Test Item Value Reference Range Interpretation Comments SARS-CoV-2 (COVID-19) IgG Ab Positive [Presence] in Serum or Plasma by Immunoassay (test code = 52480-5) EUNICE VAUGHANAntibody [id number] 07:20:00 Test Item Value Reference Range Interpretation Comments Antibody ID (test code = 85722-3) POS, Anti-E [facility] ED Preliminary Interpretation - Not an [id number] 04:05:34 Test Item Value Reference Range Interpretation Comments BIANCA (test code = BIANCA) Ernesto Kwong DO 08/10/2020 1:49 [facility] ED Preliminary Interpretation - Not an OrderPerformed by: Ernesto Kwong DOAuthorized by: Ernesto Kwong DO ECG reviewed by ED Physician in the absence of a administrative support associate: yes Interpretation: Interpretation: abnormal Rate: ECG rate: 122 ECG rate assessment: tachycardic Rhythm: Rhythm: sinus tachycardia Ectopy: Ectopy: none QRS: QRS axis: Normal QRS intervals: NormalConduction: Conduction: normal ST segments: ST segments: NormalT waves: T waves: normal Lab Interpretation Abnormal (test code = 31995-5) Stephanie AugustineARS-CoV-2 (COVID-19) RNA [Presence] in Respiratory specimen by HIREN with probe [id number] 02:34:17 Test Item Value Reference Range Interpretation Comments SARS-CoV-2 (COVID-19) RNA [Presence] Detected Not-Detected in Respiratory specimen by HIREN with probe detection (test code = 65047-6) EUNICE VAUGHANSARS-CoV-2 (COVID-19) IgG+IgM Ab [Presence] in Serum or Plasma by [id number] 14:07:00 Test Item Value Reference Range Interpretation Comments SARS-CoV-2 (COVID-19) IgG+IgM Ab Positive [Presence] in Serum or Plasma by Immunoassay (test code = 42053-4) EUNICE VAUGHANSARS-CoV-2 (COVID-19) IgG Ab [Presence] in Serum or Plasma by [id number] 14:07:00 Test Item Value Reference Range Interpretation Comments SARS-CoV-2 (COVID-19) IgG Ab Positive [Presence] in Serum or Plasma by Immunoassay (test code = 11828-0) EUNICE SÁNCHEZ antigen patient [id number] 22:07:00 Test Item Value Reference Range Interpretation Comments E Antigen Patient Typing (test code = NEG 2604) Stephanie AugustineARS-CoV-2 (COVID-19) RNA [Presence] in Respiratory specimen by HIREN with probe [id number] 18:07:33 Test Item Value Reference Range Interpretation Comments SARS-CoV-2 (COVID-19) RNA [Presence] Detected Not-Detected in Respiratory specimen by HIREN with probe detection (test code = 12989-5) EUNICE VAUGHAN
[2022-05-27] MEDS ORDERED: FENTANYL CITR 100 MCG/2 ML ONE (00:38)
[2022-05-27] MEDS ORDERED: ONDANSETRON 4 MG/2 ML VIAL ONE (00:38)
[2022-05-27] MEDS ORDERED: PANTOPRAZOLE 40 MG INJ ONE (00:38)
[2022-05-27] MEDS ORDERED: NA CHLORIDE 0.9% 1,000 ML ONE (00:38)
[2022-05-27 00:56] LABS: Absolute Lymphocytes (CBC) 0.4 K/uL (0.7-4.9); Lymphocytes % 21.5 % (15.3-44.8); MCV 74.4 fL (80-100); MPV 8.7 fL (7.6-11.3); RBC Red Blood Cell Count 3.35 M/uL (3.86-4.86)
[2022-05-27 00:58] LABS: Protime INR 1.55
[2022-05-27 01:06] LABS: SARS-CoV-2 Antigen Rapid Res Negative (Negative)
[2022-05-27 01:22] LABS: ALT/SGPT 23 U/L (13-56); AST/SGOT 28 U/L (15-37); Albumin 2.7 g/dL (3.4-5.0); Alkaline Phosphatase 163 U/L (45-117); BUN Blood Urea Nitrogen 7 mg/dL (7-18); Bicarbonate 26 mmol/L (21-32); Bilirubin Direct 1.1 mg/dL (0-0.2); Bilirubin Total 2.6 mg/dL (0.2-1.0); Glomerular Filtration Rate 99 ml/min (=/>90); Glucose Level 274 mg/dL (74-106); Lipase 179 U/L (73-393); Magnesium 1.7 mg/dL (1.6-2.4); NT PRO-BNP 32 pg/mL (<125); Potassium 3.5 mmol/L (3.5-5.1); Protein, Total 6.5 g/dL (6.4-8.2); Sodium Level 135 mmol/L (136-145); Troponin High Sensitivity 5.5 pg/mL (<58.9)
[2022-05-27 01:31] LABS: Anisocytosis 1+; Blood Morphology Comment NOTED (NOT SEEN); Hypochromasia 1+; Ovalocytes 1+; Platelet Estimate DECR; Teardrop Cell 1+; White Blood Cell Scan OK (OK)
--- NOTE | 2022-05-27 01:32 | EDPHYS ---
Physician Documentation [facility] Name: Zeny Fox Age: 62 yrs Sex: Female : 1960 Arrival Date: 05/27/2022 Time: 00:05 Bed 8 Private MD: ED Physician Roland Matthews HPI: 05/27 00:25 This 62 yrs old Female presents to ER via Unassigned with complaints of chanelle Abdominal Pain, Abdominal Swelling, Leg Swelling. 00:25 The patient presents with abdominal pain in the epigastric area, in the upper abdomen, chanelle abdominal distention in the upper abdomen, in the lower abdomen. Onset: The symptoms/episode began/occurred 2 day(s) ago. The symptoms do not radiate. Associated signs and symptoms: none. The symptoms are described as constant, crampy. Modifying factors: The symptoms are alleviated by remaining still, the symptoms are aggravated by movement, nothing. Severity of pain: At its worst the pain was moderate in the emergency department the pain is unchanged. The patient has experienced similar episodes in the past, several times. Historical: - Allergies: 00:25 No Known Allergies; bb - Home Meds: 00:25 azathioprine 50 mg Oral tab 2 tabs once daily [Active]; ezetimibe Oral once daily bb [Active]; irbesartan 75 mg Oral tab 1 tab once daily [Active]; metformin 1,000 mg Oral tab 1 tab 2 times per day [Active]; Methylprednisolone Oral [Active]; pantoprazole 40 mg Oral TbEC 1 tab once daily [Active]; Propranolol Oral [Active]; Vit D3 [Active]; Spironolactone Oral [Active]; Furosemide Oral [Active]; - PMHx: 00:25 colon cancer; Diabetes - IDDM; fatty liver; Hyperlipidemia; Hypertension; bb - PSHx: 00:25 colon surgery; bb - Immunization history:: Flu vaccine is not up to date. - Family history:: not pertinent. - Social history:: Smoking status: Patient denies any tobacco usage or history of. ROS: 00:25 Constitutional: Negative for fever, chills, and weight loss, Eyes: Negative for injury, chanelle pain, redness, and discharge, ENT: Negative for injury, pain, and discharge, Neck: Negative for injury, pain, and swelling, Cardiovascular: Negative for chest pain, palpitations, and edema, Respiratory: Negative for shortness of breath, cough, wheezing, and pleuritic chest pain, Back: Negative for injury and pain, : Negative for injury, bleeding, discharge, and swelling, MS/Extremity: Negative for injury and deformity, Neuro: Negative for headache, weakness, numbness, tingling, and seizure, Psych: Negative for depression, anxiety, suicide ideation, homicidal ideation, and hallucinations, Allergy/Immunology: Negative for hives, rash, and allergies, Endocrine: Negative for neck swelling, polydipsia, polyuria, polyphagia, and marked weight changes, Hematologic/Lymphatic: Negative for swollen nodes, abnormal bleeding, and unusual bruising. 00:25 Abdomen/GI: Positive for abdominal pain, abdominal distension, of the epigastric area, right upper quadrant and left upper quadrant. 00:25 Skin: Positive for jaundice, diffusely. Exam: 00:25 Constitutional: This is a well developed, well nourished patient who is awake, alert, chanelle and in no acute distress. Head/Face: Normocephalic, atraumatic. Eyes: Pupils equal round and reactive to light, extra-ocular motions intact. Lids and lashes normal. Conjunctiva and sclera are non-icteric and not injected. Cornea within normal limits. Periorbital areas with no swelling, redness, or edema. ENT: Nares patent. No nasal discharge, no septal abnormalities noted. Tympanic membranes are normal and external auditory canals are clear. Oropharynx with no redness, swelling, or masses, exudates, or evidence of obstruction, uvula midline. Mucous membranes moist. Neck: Trachea midline, no thyromegaly or masses palpated, and no cervical lymphadenopathy. Supple, full range of motion without nuchal rigidity, or vertebral point tenderness. No Meningismus. Chest/axilla: Normal chest wall appearance and motion. Nontender with no deformity. No lesions are appreciated. Respiratory: Lungs have equal breath sounds bilaterally, clear to auscultation and percussion. No rales, rhonchi or wheezes noted. No increased work of breathing, no retractions or nasal flaring. Back: No spinal tenderness. No costovertebral tenderness. Full range of motion. Female : Normal external genitalia. Neuro: Awake and alert, GCS 15, oriented to person, place, time, and situation. Cranial nerves II-XII grossly intact. Motor strength 5/5 in all extremities. Sensory grossly intact. Cerebellar exam normal. Normal gait. Psych: Awake, alert, with orientation to person, place and time. Behavior, mood, and affect are within normal limits. 00:25 Cardiovascular: Rate: tachycardic, Rhythm: irregular, Pulses: Pulses are 4+ in bilateral radial, brachial, femoral, popliteal, posterior tibial and and dorsalis pedis arteries.. Edema: 2+ edema to level of left midcalf and right midcalf, JVD: is not appreciated. 00:25 Abdomen/GI: Inspection: distension, that is moderate, Bowel sounds: active, Palpation: moderate abdominal tenderness, in the epigastric area, right upper quadrant and left upper quadrant, Liver: no appreciated palpable abnormalities, Hernia: not appreciated. 00:25 Musculoskeletal/extremity: DVT Exam: pain, swelling, tenderness, of the right leg and left leg. 00:45 ECG was reviewed by the Attending Physician. [facility] Vital Signs: 00:24 BP 142 / 81; Pulse 108; Resp 18 S; Temp 98.9(O); Pulse Ox 99% on R/A; Weight 81.65 kg bb (R); Height 5 ft. 0 in. (152.40 cm) (R); Pain 7/10; 00:44 BP 131 / 65; Pulse 102; Resp 22; Pulse Ox 100% on R/A; tw5 02:38 BP 125 / 58; Pulse 107; Resp 20; Pulse Ox 99% on R/A; tw5 03:19 BP 128 / 60; Pulse 104; Resp 24 S; Pulse Ox 100% on R/A; as6 00:24 Body Mass Index 35.15 (81.65 kg, 152.40 cm) MDM: 00:06 Patient medically screened. [facility] 00:29 Differential diagnosis: cholecystitis, Cholelithiasis. Data reviewed: vital signs, [facility] nurses notes, lab test result(s), EKG, radiologic studies, CT scan, doppler, plain films. Data interpreted: Pulse oximetry: on room air is 99 %. Test interpretation: by ED physician or midlevel provider: ECG, plain radiologic studies. Counseling: I had a detailed discussion with the patient and/or guardian regarding: the historical points, exam findings, and any diagnostic results supporting the discharge/admit diagnosis, lab results, radiology results. 05/27 00:25 Order name: Basic Metabolic Panel; Complete Time: : [facility] 05/27 00:25 Order name: CBC with Diff; Complete Time: 02:10 [facility] 05/27 00:25 Order name: LFT's; Complete Time: : [facility] 05/27 00:25 Order name: Magnesium; Complete Time: : [facility] 05/27 00:25 Order name: NT PRO-BNP; Complete Time: : [facility] 05/27 00:25 Order name: PT-INR; Complete Time: : [facility] 05/27 00:25 Order name: Troponin HS; Complete Time: : [facility] 05/27 00:25 Order name: AMMONIA; Complete Time: [facility] 05/27 00:25 Order name: SARS RAPID; Complete Time: : [facility] 05/27 00:25 Order name: Lipase; Complete Time: : [facility] 05/27 00:25 Order name: Tylenol Level; Complete Time: : [facility] 05/27 01:01 Order name: CBC Smear Scan; Complete Time: 02:10 [facility] 05/27 01:30 Order name: Type And Screen [facility] 05/27 02:10 Order name: Blood Culture Adult (2) [facility] 05/27 00:25 Order name: XRAY Chest (1 view) [facility] 05/27 00:25 Order name: EKG; Complete Time: 00:26 [facility] 05/27 00:25 Order name: Cardiac monitoring; Complete Time: 00:48 [facility] 05/27 00:25 Order name: EKG - Nurse/Tech; Complete Time: 00:48 [facility] 05/27 00:25 Order name: IV Saline Lock; Complete Time: 00:48 [facility] 05/27 00:25 Order name: CT Abd/Pelvis - IV Contrast Only [facility] 05/27 00:25 Order name: US Extremity Venous W Compression John [facility] 05/27 00:48 Order name: US Abdomen Limited [facility] 05/27 03:19 Order name: Urine Dipstick-Ancillary [facility] 05/27 03:37 Order name: Antibody Identification [facility] 05/27 00:25 Order name: Labs collected and sent; Complete Time: 00:48 [facility] 05/27 00:25 Order name: O2 Per Protocol; Complete Time: 00:48 [facility] 05/27 00:25 Order name: O2 Sat Monitoring; Complete Time: 00:48 chanelle 05/27 00:25 Order name: Urine Dipstick-Ancillary (obtain specimen); Complete Time: 03:18 chanelle EC:45 Rate is 107 beats/min. Rhythm is regular. QRS [place] is Normal. UT interval is normal. chanelle QRS interval is normal. QT interval is normal. No Q waves. T waves are Normal. No ST changes noted. Clinical impression: Sinus tachycardia. Interpreted by me. Reviewed by me. Administered Medications: 00:47 Drug: NS 0.9% 1000 ml Route: IV; Rate: 125 ml/hr; Site: right antecubital; as6 04:18 Follow up: Response: No adverse reaction; IV Status: IV converted to saline lock; IV as6 Intake: 400ml 00:47 Drug: ProTONIX (pantoprazole) 40 mg Route: IVP; Site: right antecubital; as6 02:39 Follow up: Response: No adverse reaction tw5 00:47 Drug: fentaNYL (PF) 25 mcg Route: IVP; Site: right antecubital; as6 02:39 Follow up: Response: No adverse reaction; RASS: Alert and Calm (0) tw5 00:47 Drug: Zofran (Ondansetron) 4 mg Route: IVP; Site: right antecubital; as6 02:40 Follow up: Response: No adverse reaction tw5 02:39 Drug: Lactulose 30 grams Volume: 45 ml; Route: PO; tw5 02:40 Follow up: Response: No adverse reaction tw5 02:39 Drug: Zosyn (piperacillin-tazobactam) 3.375 grams Route: IVPB; Infused Over: 60 mins; tw5 Site: right hand; 04:18 Follow up: Response: No adverse reaction; IV Status: Completed infusion; IV Intake: as6 100ml Disposition Summary: 05/27/22 01:32 Transfer Ordered Transfer Location: [facility] chanelle Reason: Higher level of care chanelle Condition: Fair chanelle Problem: new chanelle Symptoms: have improved chanelle Accepting Physician: FRAN MANSFIELD, LIVER TEAM(05/27/22 04:21) as6 Diagnosis - Unspecified cirrhosis of liver chanelle - Anemia, unspecified chanelle - Abdominal pain, Generalized chanelle - Type 1 diabetes mellitus with hyperglycemia chanelle - Other cholelithiasis without obstruction chanelle - Other ascites - MODERATE chanelle Forms: - Medication Reconciliation Form chanelle - SBAR form [facility] Signatures: Dispatcher [employer] Roland Stanton MD MD cha Ballard, Brenda, RN RN bb Wood, Tiffany tw5 Tapan Pollard RN RN as6 Corrections: (The following items were deleted from the chart) 02:06 01:32 TO GNOSTICIST, LIVER TEAM [facility] 04:18 02:06 TO GNOSTICIST, LIVER TEAM chanelle [facility] 04:21 04:18 TO GNOSTICIST, LIVER TEAM [facility] as6
--- NOTE | 2022-05-27 01:32 | ER ---
Nurse's Notes [facility] Name: Zeny Fox Age: 62 yrs Sex: Female : 1960 Arrival Date: 05/27/2022 Time: 00:05 Bed 8 Private MD: Diagnosis: Unspecified cirrhosis of liver;Anemia, unspecified;Abdominal pain, Generalized;Type 1 diabetes mellitus with hyperglycemia;Other cholelithiasis without obstruction;Other ascites-MODERATE Presentation: 05/27 00:24 Chief complaint: Patient states: she has been having abdominal pain and swelling x 3 bb days has had decreased number of bowel movements also her lower legs are swollen left greater than right. Coronavirus screen: At this time, the client does not indicate any symptoms associated with coronavirus-19. Ebola Screen: No symptoms or risks identified at this time. Initial Sepsis Screen: Does the patient meet any 2 criteria? No. Patient's initial sepsis screen is negative. Does the patient have a suspected source of infection? No. Patient's initial sepsis screen is negative. Risk Assessment: Do you want to hurt yourself or someone else? Patient reports no desire to harm self or others. Onset of symptoms was May 23, 2022. 00:24 Method Of Arrival: Ambulatory bb 00:24 Acuity: JAMES 3 bb Historical: - Allergies: 00:25 No Known Allergies; bb - Home Meds: 00:25 azathioprine 50 mg Oral tab 2 tabs once daily [Active]; ezetimibe Oral once daily bb [Active]; irbesartan 75 mg Oral tab 1 tab once daily [Active]; metformin 1,000 mg Oral tab 1 tab 2 times per day [Active]; Methylprednisolone Oral [Active]; pantoprazole 40 mg Oral TbEC 1 tab once daily [Active]; Propranolol Oral [Active]; Vit D3 [Active]; Spironolactone Oral [Active]; Furosemide Oral [Active]; - PMHx: 00:25 colon cancer; Diabetes - IDDM; fatty liver; Hyperlipidemia; Hypertension; bb - PSHx: 00:25 colon surgery; bb - Immunization history:: Flu vaccine is not up to date. - Family history:: not pertinent. - Social history:: Smoking status: Patient denies any tobacco usage or history of. Screenin:44 [facility] ED Fall Risk Assessment (Adult) History of falling in the last 3 months, tw5 including since admission No falls in past 3 months (0 pts). Abuse screen: Denies threats or abuse. Denies injuries from another. Nutritional screening: Nutritional screening: Had unintentional weight gain of 10 pounds or more. Tuberculosis screening: No symptoms or risk factors identified. Assessment: 00:44 General: Appears in no apparent distress. uncomfortable, Behavior is calm, cooperative, tw5 appropriate for age. Pain: Complains of pain in anterior aspect of left lateral abdomen Pain currently is 7 out of 10 on a pain scale. Neuro: Level of Consciousness is awake, alert, obeys commands, Oriented to person, place, time, situation. Cardiovascular: Capillary refill. Respiratory: Airway is patent Trachea midline. GI: Abd is soft X 4 quads Abdomen is tender to palpation in anterior aspect of left lateral abdomen "It was the right side that was hurting yesterday. I have been feeling so nausea after I eat I feel like I am hardly eating. My stomach got really swollen. It usually goes down but this time it didn't.". GI: Abdomen is distended. 02:38 Reassessment: Patient states feeling better. General: Appears Behavior is calm. tw5 Vital Signs: 00:24 BP 142 / 81; Pulse 108; Resp 18 S; Temp 98.9(O); Pulse Ox 99% on R/A; Weight 81.65 kg bb (R); Height 5 ft. 0 in. (152.40 cm) (R); Pain 7/10; 00:44 BP 131 / 65; Pulse 102; Resp 22; Pulse Ox 100% on R/A; tw5 02:38 BP 125 / 58; Pulse 107; Resp 20; Pulse Ox 99% on R/A; tw5 03:19 BP 128 / 60; Pulse 104; Resp 24 S; Pulse Ox 100% on R/A; as6 00:24 Body Mass Index 35.15 (81.65 kg, 152.40 cm) ED Course: 00:05 Patient arrived in ED. ja2 00:06 Roland Matthews MD is Attending Physician. chanelle 00:10 Tapan Pollard, ELIZA is Primary Nurse. as6 00:25 Triage completed. bb 00:25 Arm band placed on Patient placed in an exam room, on a stretcher, on pulse oximetry. bb Family accompanied patient. 00:40 XRAY Chest (1 view) In Process Unspecified. EDMS 00:44 Patient has correct armband on for positive identification. Placed in gown. Bed in low tw5 position. Call light in reach. Side rails up X 1. Adult w/ patient. Client placed on continuous cardiac and pulse oximetry monitoring. NIBP monitoring applied. Door closed. Noise minimized. Moved to private room. Warm blanket given. Verbal reassurance given. 00:44 Initial lab(s) drawn, by ED staff, sent to lab. Inserted saline lock: 18 gauge in right tw5 antecubital area, using aseptic technique. started by ELIZA Phelan. 00:44 Patient maintains SpO2 saturation greater than 95% on room air. tw5 00:48 Lipase Sent. tw5 00:48 SARS RAPID Sent. tw5 00:48 AMMONIA Sent. tw5 00:48 Basic Metabolic Panel Sent. tw5 00:48 CBC with Diff Sent. tw5 00:48 LFT's Sent. tw5 00:48 Magnesium Sent. tw5 00:48 NT PRO-BNP Sent. tw5 00:48 PT-INR Sent. tw5 00:48 Troponin HS Sent. tw5 00:58 Notified ED physician of a critical lab result(s). WBC 1.8 Dr Matthews notified. bb 02:06 Dr. Matthews initiated transfer to [facility]. wm 02:09 US Extremity Venous W Compression John In Process Unspecified. EDMS 02:09 US Abdomen Limited In Process Unspecified. EDMS 02:10 First set of blood cultures drawn by mn. tw5 02:[address] Scan. tw5 02:30 Second set of blood cultures drawn by mn. tw5 02:39 Blood Culture Adult (2) Sent. tw5 02:39 Inserted saline lock: 20 gauge in right hand, using aseptic technique. Blood collected. tw5 03:01 CT Abd/Pelvis - IV Contrast Only In Process Unspecified. EDMS 03:34 Pt accepted for transfer by Braden Freire. wm 04:18 No provider procedures requiring assistance completed. Patient transferred, IV remains as6 in place. Administered Medications: 00:47 Drug: NS 0.9% 1000 ml Route: IV; Rate: 125 ml/hr; Site: right antecubital; as6 04:18 Follow up: Response: No adverse reaction; IV Status: IV converted to saline lock; IV as6 Intake: 400ml 00:47 Drug: ProTONIX (pantoprazole) 40 mg Route: IVP; Site: right antecubital; as6 02:39 Follow up: Response: No adverse reaction tw5 00:47 Drug: fentaNYL (PF) 25 mcg Route: IVP; Site: right antecubital; as6 02:39 Follow up: Response: No adverse reaction; RASS: Alert and Calm (0) 00:47 Drug: Zofran (Ondansetron) 4 mg Route: IVP; Site: right antecubital; as6 02:40 Follow up: Response: No adverse reaction tw 02:39 Drug: Lactulose 30 grams Volume: 45 ml; Route: PO; tw5 02:40 Follow up: Response: No adverse reaction 02:39 Drug: Zosyn (piperacillin-tazobactam) 3.375 grams Route: IVPB; Infused Over: 60 mins; tw5 Site: right hand; 04:18 Follow up: Response: No adverse reaction; IV Status: Completed infusion; IV Intake: as6 100ml Medication: 00:44 VIS not applicable for this client. tw5 Intake: 04:18 IV: 100ml; Total: 100ml. as6 04:18 IV: 400ml; Total: 500ml. as6 Outcome: 01:32 ER care complete, transfer ordered by MD. roca 04:18 Transferred by ground EMS to [facility], Transfer form completed. X-rays as6 sent w/ patient. 04:18 Condition: stable 04:18 Instructed on the need for transfer. 04:21 Patient left the ED. as6 Signatures: Dispatcher [employer] Roland Stanton MD MD cha Ballard, Brenda, RN RN Lyudmila Mendes Jessica ja2 Wood, Tiffany tw5 Tapan Pollard RN RN as6
[2022-05-27] MEDS ORDERED: NA CHLORIDE 0.9% 100 ML IV ONE (02:11)
[2022-05-27] MEDS ORDERED: LACTULOSE 20 GM/30 ML UCUP ONE ×2 (02:11→02:45)
[2022-05-27] MEDS ORDERED: PIPERACIL/TAZO 3.375 GM VIAL IV ONE (02:11)
[2022-05-27 03:19] LABS: Urine Blood Negative (Negative); Urine Glucose 1+ (Negative); Urine Protein Negative (Negative); Urine Specific Gravity 1.015 (1.005-1.030)
[2022-05-27 04:53] VITALS: TEMP 98.9
[2022-05-27 04:57] VITALS: BP 128/60; O2SAT 100
--- NOTE | 2022-05-27 20:44 | RAD REPORT ---
EXAM DESCRIPTION: US - Extrem Venous W Compress John - 05/27/2022 2:07 am CLINICAL HISTORY: The patient is 62 years old and is Female; Pain TECHNIQUE: Real-time duplex ultrasound scan of the bilateral lower extremity veins integrating B-mod e two-dimensional vascular structure, Doppler spectral analysis, color flow Doppler imaging and compr ession. COMPARISON: No relevant prior studies available. FINDINGS: Right deep veins: Unremarkable. No DVT in the visualized common femoral, femoral, or p opliteal veins. The veins demonstrate normal color flow, are normally compressible where visualized , with normal phasic flow and/or augmentation response. Left deep veins: Unremarkable. No DVT in the visualized common femoral, femoral, or popliteal veins. The veins demonstrate normal color flow, are normally compressible where visualized, with no rmal phasic flow and/or augmentation response. Soft tissues: No acute findings. IMPRESSION: No evidence of DVT in the bilateral lower extremity veins. Electronically signed by: Bebo Couch MD 05/27/2022 2:38 AM NUTRITION PROFESSOR Due to temporary technical issues with the PACS/Fluency reporting system, reports are being signed by the in house radiologists without review as a courtesy to insure prompt reporting. The interpreting radiologist is fully responsible for the content of the report.
--- NOTE | 2022-05-27 20:45 | RAD REPORT ---
EXAM DESCRIPTION: US - Abdomen Exam Limited - 05/27/2022 2:07 am CLINICAL HISTORY: ABD PAIN TECHNIQUE: Real-time ultrasound of the right upper quadrant with image documentation. COMPARISON: No relevant prior studies available. FINDINGS: Liver: The liver measures 16.4 cm in length. Diffuse surface contour nodularity compat ible with cirrhosis. Gallbladder: Gallstones in the region of the gallbladder neck. Top normal gallbladder wall thickn ess. No pericholecystic fluid. Common bile duct: Unremarkable as visualized. No stones. No dilation. Free fluid: Small to moderate ascites. IMPRESSION: 1. Cholelithiasis without secondary signs to suggest acute cholecystitis. 2. Other findings as above. Electronically signed by: Akira Byrne MD 05/27/2022 2:48 AM POINT OF CARE TECHNICIAN Due to temporary technical issues with the PACS/Fluency reporting system, reports are being signed by the in house radiologists without review as a courtesy to insure prompt reporting. The interpreting radiologist is fully responsible for the content of the report.
--- NOTE | 2022-05-27 21:08 | RAD REPORT ---
EXAM DESCRIPTION: RAD - Chest Single View - 05/27/2022 12:38 am CLINICAL HISTORY: The patient is 62 years old and is Female; ABDOMINAL DISTENTION TECHNIQUE: Frontal view of the chest. COMPARISON: No relevant prior studies available. FINDINGS: Lungs: Unremarkable. No consolidation. Pleural space: Unremarkable. No pneumothorax. Heart: Unremarkable. Mediastinum: Unremarkable. Bones/joints: Unremarkable. IMPRESSION: No acute findings in the chest. Electronically signed by: Bebo Couch MD 05/27/2022 1:09 AM SDET Due to temporary technical issues with the PACS/Fluency reporting system, reports are being signed by the in house radiologists without review as a courtesy to insure prompt reporting. The interpreting radiologist is fully responsible for the content of the report.
--- NOTE | 2022-05-27 21:18 | RAD REPORT ---
EXAM DESCRIPTION: CT - Abdomen Pelvis W Contrast - 05/27/2022 6:42 am CLINICAL HISTORY: Abdominal pain, acute, nonlocalized TECHNIQUE: Axial computed tomography images of the abdomen and pelvis with intravenous contrast. S agittal and coronal reformatted images were created and reviewed. This CT exam was performed using one or more of the following dose reduction techniques: automated exposure control, adjustment of t he mA and/or kV according to patient size, and/or use of iterative reconstruction technique. COMPARISON: CT Abdomen Pelvis dated 07/14/2019 FINDINGS: Lung bases: Unremarkable. No mass. No consolidation. ABDOMEN: Liver: Cirrhotic liver. Gallbladder and bile ducts: Numerous gallstones. No gallbladder wall thickening or pericholecysti c fluid. No ductal dilation. Pancreas: Unremarkable. No mass. No ductal dilation. Spleen: Splenomegaly, new from the prior. Adrenals: Unremarkable. No mass. Kidneys and ureters: Normal renal cortical enhancement. No calculi. No hydronephrosis. Stomach and bowel: The stomach, duodenum, proximal jejunum and the proximal to mid large bowel appe ar thickened. Scattered colonic diverticula without adjacent inflammatory change. Sigmoid anastom osis. No bowel obstruction. PELVIS: Appendix: Normal caliber appendix. No findings to suggest acute appendicitis. Bladder: Unremarkable. No mass. Reproductive: Lobulated uterine contour most compatible with an underlying fibroid. No adnexal ma ss. ABDOMEN and PELVIS: Intraperitoneal space: Moderate ascites. No free air. Bones/joints: Multilevel spondylosis. No acute fracture. No dislocation. Soft tissues: Unremarkable. Vasculature: Mild to moderate atherosclerotic disease. Areas of intraluminal thrombus within the superior mesenteric vein and its branches. The main portal and splenic veins are patent. No abdom inal aortic aneurysm. Lymph nodes: Unremarkable. No enlarged lymph nodes. IMPRESSION: 1. Hepatic cirrhosis and sequela of portal hypertension. Moderate ascites. Areas o f thrombosis within the superior mesenteric vein and its branches. The main portal and splenic vein s are patent. 2. Thickened appearance of the stomach, proximal small bowel and proximal to mid large bowel which can be seen in the setting of liver disease. If clinical concern for this entity, nonspecific gastr oenteritis and colitis may be considered. 3. Other findings as above. Electronically signed by: Akira Byrne MD 05/27/2022 3:42 AM LAW CLERK Due to temporary technical issues with the PACS/Fluency reporting system, reports are being signed by the in house radiologists without review as a courtesy to insure prompt reporting. The interpreting radiologist is fully responsible for the content of the report.
--- NOTE | 2022-05-28 19:07 | EKG ---
Test Date: 2022-05-27 Test Time: 00:37:59 [employer] Frame Assembler: MEASUREMENT RESULTS: Intervals: Rate: 107 UT: 134 QRSD: 84 QT: 372 QTc: 496 [place]: P: 51 UT: 134 QRS: 65 T: 41 INTERPRETIVE STATEMENTS: Sinus tachycardia Otherwise normal ECG Compared to ECG 07/15/2019 19:21:22 Sinus rhythm no longer present Electronically Signed On 05-28-22 19:06:39 TABLEAU ARCHITECT by Harris Durbin
== END 2022-05-27 04:21 | disposition short-term general hospital (02) ==
LOC: ER 00:01
DX: K80.80 Other cholelithiasis without obstruction (principal); K74.60 Unspecified cirrhosis of liver; R18.8 Other ascites; E10.65 Type 1 diabetes mellitus with hyperglycemia; D64.9 Anemia, unspecified; I10 Essential (primary) hypertension; Z85.038 Personal history of other malignant neoplasm of large intestine; Z20.822 Contact with and (suspected) exposure to COVID-19
CPT/HCPCS: 36415; 71045; 74177; 76705; 80048; 80076; 80329; 81003; 82140; 83690; 83735; 83880; 84484; 85025; 85610; 86850; 86870; 86900; 86901; 87040; 87811; 93005; 93970; 96361; 96365; 96366; 96375; 99285; C9113; J2405; J2543; J3010; J7030; Q9967